=== PATIENT | female | born 1965 | race Caucasian/White ===

== ENCOUNTER → 2018-07-05 14:12 | Outpatient (CLI) | payer OTHER, SELFPAY ==
[2018-07-10 12:57] LABS: HPV Reflexed? NOT INDICATED
== END ==
PROVIDERS: Visit Provider Obstetrics & Gynecology
DX: Z12.4 Encounter for screening for malignant neoplasm of cervix (principal)
CPT/HCPCS: 88175; G0145

== ENCOUNTER → 2019-05-09 13:46 | Outpatient (CLI) | payer OTHER, SELFPAY ==
[2017-02-21 11:34] VITALS: BMI 22.3
[2019-05-09 16:31] LABS: Vitamin D,25 Hydroxy 15.7 ng/mL (29.95-100.01)
[2019-05-09 16:36] LABS: Anion Gap 8 (5-15); BUN 17 mg/dL (7-18); Calcium,Total 9.2 mg/dL (8.5-10.1); Chloride 104 mmol/L (98-107); Cholesterol 278 mg/dL (200); Creatinine, Serum 0.77 mg/dL (0.55-1.02); EST Glomerular Filtration Rate 83 mL/min (>60); Est Glom Filt Rate - Afr Amer 101 mL/min (>60); Glucose 82 mg/dL (74-106); High Density Lipoprotein 69 mg/dL; Potassium 3.4 mmol/L (3.5-5.1); Sodium Level 140 mmol/L (136-145); Triglycerides 78 mg/dL; Very Low Density Lipoprotein 16 mg/dL (5-40)
== END ==
PROVIDERS: Visit Provider Family Medicine
DX: Z00.00 Encounter for general adult medical examination without abnormal findings (principal)
CPT/HCPCS: 36415; 80048; 80061; 82306

== ENCOUNTER → 2019-07-31 | Outpatient (CLI) | payer OTHER, SELFPAY ==
[2019-07-31 10:12] LABS: Cholesterol 152 mg/dL (200); High Density Lipoprotein 70 mg/dL; Triglycerides 78 mg/dL; Very Low Density Lipoprotein 16 mg/dL (5-40)
== END | disposition home or self-care (01) ==
LOC: MFPLAB 08:24
PROVIDERS: PCP Family Medicine; Referring Provider Family Medicine; Visit Provider Family Medicine
DX: E78.5 Hyperlipidemia, unspecified (principal)
CPT/HCPCS: 36415; 80061

== ENCOUNTER → 2020-11-05 09:29 | Outpatient (CLI) | payer OTHER, SELFPAY ==
[2017-02-21 11:34] VITALS: BMI 22.3
[2020-11-05 12:58] LABS: Vitamin D,25 Hydroxy 37.1 ng/mL
[2020-11-05 13:05] LABS: ALB/GLOB Ratio 1.1 RATIO (0.9-2.4); AST(SGOT) 23 U/L (15-37); Alanine Aminotransfer ALT/SGPT 26 U/L (13-56); Albumin, Serum 4.2 g/dL (3.2-5.0); Alkaline Phosphatase 84 U/L (45-117); Anion Gap 6 (5-15); BUN 21 mg/dL (7-18); BUN/Creat Ratio 24.1 RATIO (10-20); Calcium,Total 9.3 mg/dL (8.5-10.1); Chloride 107 mmol/L (98-107); Cholesterol 161 mg/dL (200); Creatinine, Serum 0.87 mg/dL (0.55-1.02); EST Glomerular Filtration Rate 72 mL/min (>60); Est Glom Filt Rate - Afr Amer 87 mL/min (>60); Globulin 3.7 g/dL (2.2-4.2); Glucose 90 mg/dL (74-106); High Density Lipoprotein 72 mg/dL; Potassium 3.5 mmol/L (3.5-5.1); Protein, Total 7.9 g/dL (6.4-8.2); Sodium Level 141 mmol/L (136-145); Triglycerides 66 mg/dL; Very Low Density Lipoprotein 13 mg/dL (5-40)
== END ==
PROVIDERS: PCP Family Medicine; Referring Provider Family Medicine; Visit Provider Family Medicine
DX: E78.5 Hyperlipidemia, unspecified (principal); E55.9 Vitamin D deficiency, unspecified
CPT/HCPCS: 36415; 80053; 80061; 82306

== ENCOUNTER → 2022-02-13 | Outpatient (CLI) | payer OTHER, SELFPAY | END | disposition home or self-care (01) | PROVIDERS: PCP Family Medicine; Visit Provider Family Medicine | DX: N39.0 Urinary tract infection, site not specified (principal) | CPT/HCPCS: 87077; 87086; 87088; 87186 ==

== ENCOUNTER → 2022-02-14 | Outpatient (CLI) | payer OTHER, SELFPAY ==
[2022-02-14 11:06] LABS: AST(SGOT) 21 U/L (15-37); Alanine Aminotransfer ALT/SGPT 27 U/L (13-56); Albumin, Serum 3.9 g/dL (3.2-5.0); Alkaline Phosphatase 77 U/L (45-117); Anion Gap 6 (5-15); BUN 15 mg/dL (7-18); BUN/Creat Ratio 16.3 RATIO (10-20); Calcium,Total 9.4 mg/dL (8.5-10.1); Chloride 108 mmol/L (98-107); Cholesterol 148 mg/dL (200); Creatinine, Serum 0.92 mg/dL (0.55-1.02); EST Glomerular Filtration Rate 68 mL/min (>60); Est Glom Filt Rate - Afr Amer 82 mL/min (>60); Globulin 3.9 g/dL (2.2-4.2); Glucose 97 mg/dL (74-106); High Density Lipoprotein 69 mg/dL; Potassium 3.8 mmol/L (3.5-5.1); Protein, Total 7.8 g/dL (6.4-8.2); Sodium Level 141 mmol/L (136-145); Triglycerides 53 mg/dL; Very Low Density Lipoprotein 11 mg/dL (5-40)
== END | disposition home or self-care (01) ==
LOC: MFPLAB 08:15
PROVIDERS: PCP Family Medicine; Visit Provider Family Medicine
DX: Z00.00 Encounter for general adult medical examination without abnormal findings (principal)
CPT/HCPCS: 36415; 80053; 80061

== ENCOUNTER → 2023-02-09 | Outpatient (CLI) | payer OTHER, SELFPAY ==
[2023-02-09 10:18] LABS: Anion Gap 3 (5-15); BUN 18 mg/dL (7-18); BUN/Creat Ratio 21.4 RATIO (10-20); Calcium,Total 9.3 mg/dL (8.5-10.1); Chloride 110 mmol/L (98-107); Cholesterol 142 mg/dL (200); Creatinine, Serum 0.84 mg/dL (0.55-1.02); EST Glomerular Filtration Rate 75 mL/min (>60); Est Glom Filt Rate - Afr Amer 90 mL/min (>60); Glucose 101 mg/dL (74-106); High Density Lipoprotein 68 mg/dL; Potassium 3.6 mmol/L (3.5-5.1); Sodium Level 142 mmol/L (136-145); Triglycerides 65 mg/dL; Very Low Density Lipoprotein 13 mg/dL (5-40)
== END | disposition home or self-care (01) ==
LOC: MFPLAB 08:35
PROVIDERS: PCP Family Medicine; Visit Provider Family Medicine
DX: Z00.00 Encounter for general adult medical examination without abnormal findings (principal)
CPT/HCPCS: 36415; 80048; 80061; 82306

== ENCOUNTER → 2025-03-11 | Outpatient (CLI) | payer OTHER, SELFPAY ==
--- NOTE | 2025-03-11 10:29 | RAD_ITS ---
PROCEDURE: RAD/Chest PA and Lateral
[2025-03-11 14:19] LABS: Hematocrit 42.4 % (37-47); Hemoglobin 13.4 g/dL (12.0-15.0); Immature Granulocytes Count 0.150 X10^3/uL (0.0-0.0); Mean Corp Hgb Conc 31.6 g/dL (32-36); Mean Corpuscular Volume 96.4 fL (81-99); Mean Platelet Vol. 10.6 fl (6.2-12.0); NRBC Flagged by Analyzer 0 % (0-5); POSITIVE COUNT YES; RBC Distribution Width CV 12.2 % (11.6-14.6); RBC Distribution Width SD 43.3 fl (35.1-43.9); Red Blood Count 4.40 M/mm3 (4.2-5.4); White Blood Count 13.4 K/mm3 (4.4-11.0)
[2025-03-11 14:40] LABS: AST(SGOT) 32 U/L (<=31); Alanine Aminotransfer ALT/SGPT 19 U/L (<=34); Albumin, Serum 3.8 g/dL (3.5-5.0); Alkaline Phosphatase 70 U/L (35-104); Anion Gap 12 (5-15); BUN 19 mg/dL (4-19); BUN/Creat Ratio 22.7 RATIO (10-20); Calcium,Total 9.2 mg/dL (7.6-11.0); Carbon Dioxide 24.5 mmol/L (21.0-32.0); Chloride 102 mmol/L (98-108); Globulin 4.0 g/dL (2.2-4.2); Glucose 173 mg/dL (70-99); Potassium 3.9 mmol/L (3.3-5.1)
[2025-03-11 15:00] LABS: Differential Indicated SCAN CRITERIA MET
== END | disposition home or self-care (01) ==
PROVIDERS: PCP Family Medicine; Referring Provider Family Medicine; Visit Provider Family Medicine
DX: R05.9 Cough, unspecified (principal)
CPT/HCPCS: 36415; 71046; 80053; 85025

== ENCOUNTER → 2025-03-24 | Outpatient (CLI) | payer OTHER, SELFPAY ==
--- NOTE | 2025-03-24 16:48 | CT_ITS ---
PROCEDURE: CT CHEST WITHOUT CONTRAST 03/24/2025 REASON FOR EXAM: EFFUSION TECHNIQUE: Chest CT without contrast. Coronal and Sagittal reconstruction series were provided. One or more dose reduction techniques were used (e.g., Automated exposure control, adjustment of the mA and/or kV according to patient size, use of iterative reconstruction technique RADIATION DOSE SUMMARY: CTDlvol: 7.27 mGy DLP: 268.85 mGycm COMPARISON: Chest x-ray 03/11/2025. FINDINGS: Moderate left pleural effusion with associated subtotal compressive atelectasis and/or consolidation of the left lower lobe. Underlying mass lesion can not be excluded on this exam. The aerated left upper lobe and the right lung are clear. No pneumothorax. Opacified the left lower lobe bronchial airways. Increased number of mildly prominent mediastinal lymph nodes, nonspecific but may be reactive. Evaluation of the may is limited without IV contrast. No enlarged axillary lymph nodes. Normal heart size. No significant pericardial effusion. No coronary artery calcifications. Normal caliber of the central pulmonary arterial vessels and the thoracic aorta. No significant abnormality visualized in the partially included upper abdomen. Simple appearing periportal hepatic cyst in the caudate lobe of the liver. No acute or aggressive osseous abnormality. Minimal degenerative changes of the spine. CT/Chest without Contrast IMPRESSION: Moderate left pleural effusion with subtotal compressive atelectasis and/or con solidation of the left lower lobe. Nonspecific but probable reactive mildly prominent mediastinal lymph nodes. An underlying left lower lobe or left perihilar mass lesion cannot be excluded on this exam. Any follow-up CTs are recommended to be performed with intravenous contrast. Reading Location: [id number]
[2025-03-24 16:57] LABS: Hematocrit 36.6 % (37-47); Hemoglobin 11.9 g/dL (12.0-15.0); Immature Granulocytes Count 0.040 X10^3/uL (0.0-0.0); Mean Corp Hgb Conc 32.5 g/dL (32-36); Mean Corpuscular Volume 93.1 fL (81-99); Mean Platelet Vol. 8.7 fl (6.2-12.0); NRBC Flagged by Analyzer 0 % (0-5); Platelet Count 462 K/mm3 (150-450); RBC Distribution Width CV 11.9 % (11.6-14.6); RBC Distribution Width SD 41.1 fl (35.1-43.9); Red Blood Count 3.93 M/mm3 (4.2-5.4); White Blood Count 10.1 K/mm3 (4.4-11.0)
[2025-03-24 17:22] LABS: Fibrinogen 872 mg/dl (203-444)
[2025-03-24 17:38] LABS: AST(SGOT) 29 U/L (<=31); Alanine Aminotransfer ALT/SGPT 18 U/L (<=34); Albumin, Serum 3.6 g/dL (3.5-5.0); Alkaline Phosphatase 69 U/L (35-104); Anion Gap 13 (5-15); BUN 22 mg/dL (4-19); BUN/Creat Ratio 28.4 RATIO (10-20); CRP 125.00 mg/L (0.0-3.0); Calcium,Total 9.2 mg/dL (7.6-11.0); Carbon Dioxide 24.0 mmol/L (21.0-32.0); Chloride 103 mmol/L (98-108); Globulin 4.2 g/dL (2.2-4.2); Glucose 110 mg/dL (70-99); Potassium 4.0 mmol/L (3.3-5.1)
[2025-03-24 18:35] LABS: D-Dimer Quantitative (DVT/PE) 6.02 FEU/ug/m (0.27-0.49)
== END | disposition home or self-care (01) ==
LOC: CT 16:40
PROVIDERS: PCP Family Medicine; Referring Provider Nurse Practitioner Family; Visit Provider Nurse Practitioner Family
DX: J90 Pleural effusion, not elsewhere classified (principal)
CPT/HCPCS: 36415; 71250; 80053; 85025; 85379; 85384; 86140; 86431

== ENCOUNTER 2025-03-25 17:43 | Observation (INO) | payer OTHER, SELFPAY ==
[2025-03-25] VITALS (9 sets, daily range): BP systolic 115–124; BP diastolic 78–89; PULSE 105–141; RESP 16–26; TEMP 36.4–36.9; O2SAT 95–100; BMI 21.9; BMI 22.3
--- NOTE | 2025-03-25 18:02 | EKG12_ITS ---
Test Reason : Blood Pressure : */* mmHG Vent. Rate : 114 BPM Atrial Rate : 114 BPM P-R Int : 116 ms QRS Dur : 68 ms QT Int : 318 ms P-R-T Axes : 47 39 42 degrees QTcB Int : 438 ms Sinus tachycardia Poor R-wave progression ; consider septal infarct, lead placement, or normal variant Abnormal ECG Confirmed by LISA FORDE, BRYCE ([id number]), editor dictionary ALYSHA BURRIS ([id number]) on 03/30/2025 8:27:34 AM Referred By: Confirmed By: BRYCE GONZALEZ MD
[2025-03-25 18:18] LABS: Hematocrit 36.2 % (37-47); Hemoglobin 11.7 g/dL (12.0-15.0); Immature Granulocytes Count 0.060 X10^3/uL (0.0-0.0); Mean Corp Hgb Conc 32.3 g/dL (32-36); Mean Corpuscular Volume 94.0 fL (81-99); Mean Platelet Vol. 8.9 fl (6.2-12.0); NRBC Flagged by Analyzer 0 % (0-5); Platelet Count 475 K/mm3 (150-450); RBC Distribution Width CV 12.0 % (11.6-14.6); RBC Distribution Width SD 41.7 fl (35.1-43.9); Red Blood Count 3.85 M/mm3 (4.2-5.4); White Blood Count 10.2 K/mm3 (4.4-11.0)
[2025-03-25 18:23] LABS: Mucous, Urine 0 SEEN /hpf (<or=2+)
[2025-03-25 18:35] LABS: Prothrombin Time (Protime)PT. 15.5 SECONDS (11.7-14.9)
[2025-03-25 18:36] LABS: Partial Thromboplast Time 35.0 Seconds (24.1-36.2)
[2025-03-25] MEDS: 0.9% Normal Saline (1000mL) 1,000 ML 999 ML IV (18:37)
[2025-03-25 18:40] LABS: AST(SGOT) 27 U/L (<=31); Alanine Aminotransfer ALT/SGPT 17 U/L (<=34); Albumin, Serum 3.6 g/dL (3.5-5.0); Alkaline Phosphatase 73 U/L (35-104); Anion Gap 16 (5-15); BUN 19 mg/dL (4-19); BUN/Creat Ratio 29.7 RATIO (10-20); Calcium,Total 9.5 mg/dL (7.6-11.0); Carbon Dioxide 22.2 mmol/L (21.0-32.0); Chloride 101 mmol/L (98-108); Estimated Creatinine Clearance 82.46 ml/min (50-250); Globulin 4.3 g/dL (2.2-4.2); Glucose 94 mg/dL (70-99); Potassium 3.7 mmol/L (3.3-5.1)
[2025-03-25 18:56] LABS: Troponin T High Sensitivity < 6 ng/L (<=14)
--- NOTE | 2025-03-25 19:54 | ED.RN ---
called lab to verify that yes 2nd set of blood cultures received.
--- NOTE | 2025-03-25 20:02 | EX.ED.DYSGE1 ---
HPI History of Present Illness Chief Complaint: Shortness of Breath Narrative Narrative: Patient was seen and examined after presenting to ED for admission as she has a new hilar mass. I received a phone call from her PCP who saw her today get a CT angio of her chest concern for PE turns out she has pleural effusion with a hilar mass that is positive with no postobstructive issue and complication patient states that she has not had an appetite for few weeks now has been losing weight because of it. Of note her PCP has been treating her for pneumonia for a couple weeks as well. PFSH PFS Medical History Iron deficiency anemia Chronic anemia Medical History no medical history Home Medications ?Medication ?Instructions ?Recorded ?Last Taken ?Type estradiol 0.025 mg/24 hr weekly 1 patch topical QWEEK 03/25/25 Unknown History transdermal patch progesterone micronized 100 mg 100 mg PO QHS 03/25/25 Unknown History capsule Allergy/AdvReac Type Severity Reaction Status Date / Time No Known Allergies Allergy Verified 03/25/25 17:45 Family History Father CAD (coronary artery disease) Heart disease Hypertension Myocardial infarction Family History no significant family his Surgical History S/P S/P breast lumpectomy Surgical History no surgical history Social History household members: spouse Smoking Status: Never smoker alcohol intake: never substance use type: does not use ROS ROS ED ROS Narrative Pertinent Positives: Shortness of breath decreased appetite weight loss fevers Pertinent Negatives: Chest pain pressure history of DVT or PE vomiting diarrhea The remainder of review of systems negative unless otherwise stated in the HPI above. Systems reviewed including constitutional, psychiatric, cardiovascular, respiratory, integument, HENT, gastrointestinal. EXAM Physical Exam Narrative Exam Narrative: Patient is afebrile but she is tachycardic and tachypneic. She is oxygenating well on room air however her blood pressure is otherwise appropriate her abdomen is soft nontender nondistended she has intact and equal MSPs in her extremities no lower extremity edema or calf tenderness no palpable pulsatile abdominal mass Const Vital Signs: 03/25/25 17:44 03/25/25 17:45 03/25/25 17:47 Temperature 97.5 F L 97.5 F L Temperature Source Oral Oral Pulse Rate 141 H 139 H Respiratory Rate 24 H 24 H Respiratory Effort Respiratory Depth Respiratory Pattern Blood Pressure 122/85 H 124/85 H 122/85 H Blood Pressure Mean 97 98 97 Pulse Ox 99 100 98 Oxygen Delivery Method Room Air Room Air Fraction of Inspired Oxygen (FIO2) 03/25/25 17:54 03/25/25 18:02 03/25/25 18:35 Temperature 98.1 F Temperature Source Oral Pulse Rate 113 H Respiratory Rate 24 H Respiratory Effort Short of Breath Respiratory Depth Normal Respiratory Pattern Normal Blood Pressure 122/78 H Blood Pressure Mean 92 Pulse Ox 98 Oxygen Delivery Method Room Air Room Air Room Air Fraction of Inspired Oxygen (FIO2) 99 03/25/25 19:24 03/25/25 20:29 Temperature 97.5 F L 98.4 F Temperature Source Oral Pulse Rate 112 H 108 H Respiratory Rate 24 H 26 H Respiratory Effort Respiratory Depth Respiratory Pattern Blood Pressure 116/80 124/89 H Blood Pressure Mean 92 100 Pulse Ox 97 98 Oxygen Delivery Method Room Air Fraction of Inspired Oxygen (FIO2) MDM MDM MDM Narrative Medical decision making narrative: Nursing notes, triage notes, available previous documentation, and vital signs were reviewed. Any discrepancies noted were addressed. Differential Diagnoses: Patient does not have a PE considering her CT angio of the chest earlier today seems like this is most likely malignancy causing a pleural effusion requiring biopsy of some sort Interventions: Antibiotics given: Ceftriaxone Fluids Given: 1 L normal saline Labs Reviewed: No leukocytosis leukopenia or significant anemia does have a slight thrombocytosis of 475 no coagulopathy no electrolyte abnormality or renal insufficiency lactic acid is only 1.4 no transaminitis troponin was less than 6. Urine is showing 100 leukocyte esterase with nitrite positive urine there is 150 ketones Imaging Reviewed: Personally reviewed and interpreted by me: CT angio of the chest that was done earlier today in the outpatient setting you can see the moderate to large size pleural effusion on the left but the official read saying the left hilar mass with the postobstructive pneumonitis and atelectasis of the left lower lobe secondary to left pleural effusion EKG: Sinus tachycardia rate of [address] segment elevation. EKG interpretation is noted and agreed to in the EMR. The interpretation of this patient's EKG contributed directly to the care and management of this patient. Previous Documentation Reviewed: None available or applicable at this time. ED Course: Patient presenting with this left hilar mass causing postobstructive process with left large pleural effusion patient was seen by her PCP had a negative PE study but the incidental findings were described PCP would like the patient to be admitted to either have IR try and evaluate for biopsy versus pulmonology for bronc patient remains tachycardic here she is afebrile she has been on a couple weeks worth of antibiotics with no improvement in her symptoms we will plan to admit this patient. Patient was given ceftriaxone for her nitrite positive urine with 100 leukocyte esterase and given the fact that she is tachycardic and tachypneic although this is likely secondary to her pleural effusion we will go ahead and treat as if she has an infection here I spoke with hospitalist Dr. Garner who is agreeable to admission This note was made utilizing voice recognition software. All attempts were made to correct spelling or other errors prior to note completion. However, due to the fast-paced nature of emergency medicine, some errors may still be present. Lab Data Labs: Laboratory Results - last 24 hr 03/25/25 03/25/25 18:00 18:13 WBC 10.2 RBC 3.85 L Hgb 11.7 L Hct 36.2 L MCV 94.0 MCH 30.4 MCHC 32.3 RDW Std Deviation 41.7 RDW Coeff of Prashant 12.0 Plt Count 475 H MPV 8.9 Immature Gran % (Auto) 0.600 Neut % (Auto) 79.8 H Lymph % (Auto) 10.3 L [place] % (Auto) 8.4 Eos % (Auto) 0.6 Baso % (Auto) 0.3 Absolute Neuts (auto) 8.2 H Absolute Lymphs (auto) 1.05 Nucleated RBC % 0 PT 15.5 H INR 1.2 APTT 35.0 Sodium 139 Potassium 3.7 Chloride 101 Carbon Dioxide 22.2 Anion Gap 16 H BUN 19 Creatinine 0.65 L Estim Creat Clear Calc 82.46 Est GFR (MDRD) Non-Af 103 BUN/Creatinine Ratio 29.7 H Glucose 94 Lactic Acid 1.4 Calcium 9.5 Total Bilirubin 0.33 AST 27 ALT 17 Alkaline Phosphatase 73 Troponin T High Sens < 6 Total Protein 7.9 Albumin 3.6 Globulin 4.3 H Albumin/Globulin Ratio 0.8 L Urine Color Yellow Urine Clarity Cloudy Urine pH 6.0 Ur Specific Brandon 1.020 Urine Protein 30 H Urine Glucose (UA) Normal Urine Ketones 150 A* Urine Occult Blood 50 H Urine Nitrite Positive H Urine Bilirubin Negative Urine Urobilinogen Normal Ur Leukocyte Esterase 100 H Discharge Plan Triage Chief Complaint: Shortness of Breath ED Provider: Cherise Lala Dx/Rx/DC Orders Clinical Impression: Hilar mass, Pleural effusion on left, Tachycardia, Recent weight loss, Decrease in appetite, UTI (urinary tract infection) Prescriptions: No Action estradiol 0.025 mg/24 hr patch weekly 1 patch topical QWEEK progesterone micronized 100 mg capsule 100 mg PO QHS Primary Care Provider: Steven Redman Referrals: Steven Redman MD [Primary Care Provider, [facility]] Print Language: French D/C Safety Score for UGIB Assessment [place] Bleeding Score (GBS): Stratifies upper GI bleeding patients who are low-risk and candidates for outpatient management. Hemoglobin, BUN, Recent Vital Signs: Hgb 11.7 g/dL (12.0-15.0) L 03/25/25 18:00 BUN 19 mg/dL (4-19) 03/25/25 18:00 Pulse Rate 108 Blood Pressure 124/89 Score Interpretation: Score of 0: A GBS of 0 is a ?Low Risk? GI bleed, and is highly sensitive (99.6% in a 2007 retrospective study) for predicting which patients did not require any ?medical intervention?: blood transfusion, endoscopy, or surgery. This was confirmed in a [address] [facility] study where patients with a score of 0 were actually discharged and had no GI bleeding mortality at 6 month followup Score above 0: A GBS greater than zero suggests a ?High Risk? GI bleed that is likely to require ?medical intervention?: transfusion, endoscopy, or surgery. A higher GBS also correlated with a higher likelihood of needing intervention Scores >/= 6 are associated with >50% risk of needing intervention D/C Safety Score for LGIB Assessment Assessment Tool: Readmission and adverse event risk in patients with acute lower GI bleeding. Hemoglobin and Recent Vital Signs: Hgb 11.7 g/dL (12.0-15.0) L 03/25/25 18:00 Pulse Rate 108 03/25/25 20:29 Blood Pressure 124/89 03/25/25 20:29 Score Interpretation: Probability Percentage of safe discharge (absence of rebleeding, blood transfusion, therapeutic intervention, 28 day readmission, or ) Score of 8 or below: Consider discharge, with appropriate precautions. Score of 9 or above: Discharge NOT recommended. Consider admission with further workup and resuscitation as necessary.
[2025-03-25 20:11] LABS: Color, Urine Yellow (Yellow); Glucose, Dipstick Normal (Normal); Leukocyte Esterase-Dipstick 100 /ul (Negative); Nitrite-Dipstick Positive (Negative); Occult Blood-Urine 50 /ul (Negative); Protein-Dipstick 30 mg/dl (Negative); Specific Gravity, Urine 1.020 (1.002-1.030); Urine Bilirubin Dipstick Negative (Negative)
[2025-03-25 20:26] LABS: Ketone-Dipstick 150 mg/dl (Negative)
--- NOTE | 2025-03-25 20:27 | ED.RN ---
notified of critical ketones
--- NOTE | 2025-03-25 20:58 | PCM.HP.STD ---
HPI - General General Date of Admission: 03/25/25 Date of Service: 03/25/25 Chief Complaint: Dyspnea, recent hilar mass dx w/ pleural effusion. HPI Narrative The patient is a 59 y/o F w/ PMHx: Chronic normocytic anemia/iron deficiency anemia with history of menorrhagia who presents to the [facility] ED on 03/25/2025 with recent outpatient PCP evaluation secondary to ongoing decreased appetite with associated weight loss over the last several weeks as well as dyspnea with imaging obtained outpatient including 03/25/2025 CTPA with a left hilar mass with postobstructive pneumonitis and atelectasis of the left lower lobe due to a large left pleural effusion with previous to this chest CT 03/24/2025 performed without contrast with a moderate left pleural effusion with subtotal compressive atelectasis and or consolidation of the left lower lobe read as nonspecific but probably reactive mildly prominent mediastinal lymph nodes, underlying left lower lobe or left perihilar mass lesion cannot be excluded at that time with recommended follow-up with IV contrast. Patient now presenting to the ED per primary care recommendation to facilitate a more emergent IR biopsy/thoracentesis versus pulmonary bronch/biopsy. Patient reportedly has also been on 2 weeks of antibiotic therapy with no improvement in symptoms. She has a started approximately 1 month prior and she initially was treated with a Z-Blade and felt some improvement however her symptoms quickly returned with fever, night sweats, decreased appetite as well as dyspnea. She recently notes that she has been afebrile but still continues to have night sweats and dyspnea worse with exertion. She also has notable orthopnea and has to sleep on a specific side to be comfortable as well as a certain elevation. She denies any nausea or vomiting. Patient denies any tobacco use history herself but notes that up into her middle youth she was a secondhand tobacco exposure individual as her parents both smoked. Workup in the ED included T97.5, heart rate initially 141, BP 122/85, respiratory rate 24, 100% on room air with most recent repeat vitals T98.4, heart rate 108, BP 124/89, respiratory rate 26, 98% on room air, CBC with WBC 10.2, hemoglobin 0.7, MCV 94, platelet 475 with left shift, unremarkable coags besides PT 15.5, CMP with anion gap 16, BUN/creatinine 19/0.65, GFR 103, lactic acid 1.4, hepatic profile unremarkable, troponin less than 6, urinalysis with cloudy appearing urine, specific gravity 1.020, protein 30, ketone 150, occult blood 50, positive nitrite, leukocyte esterase 100 with finalization of UA pending including urine RBC/WBC/bacteria thus still uncertain if UTI however given current markers some concern as noted, urine culture pending per ED, blood culture x 2 pending per ED. In the ED patient ministered 1 L normal saline as well as Rocephin 2 g IV x 1. PFSH Medical History Iron deficiency anemia Chronic anemia Medical History no medical history Home Medications ?Medication ?Instructions ?Recorded ?Last Taken ?Type estradiol 0.025 mg/24 hr weekly 1 patch topical QWEEK 03/25/25 Unknown History transdermal patch progesterone micronized 100 mg 100 mg PO QHS 03/25/25 Unknown History capsule Allergy/AdvReac Type Severity Reaction Status Date / Time No Known Allergies Allergy Verified 03/25/25 17:45 Family History Father CAD (coronary artery disease) Heart disease Hypertension Myocardial infarction Mother PAF (paroxysmal atrial fibrillation) Family History no significant family his Surgical History S/P S/P breast lumpectomy Surgical History no surgical history Social History (Updated 03/25/25 @ 21:[address] Darlin Garner MD) household members: spouse Smoking Status: Never smoker second hand exposure: Yes alcohol intake: never substance use type: does not use ROS ROS Narrative Admission Review of Systems: CONSTITUTIONAL: No fever, chills, + weight loss, weakness or fatigue. Previously had fevers when started ~ 1 month prior, since has resolved but ongoing night sweats as noted. HEENT: Eyes: No visual loss, blurred vision, double vision or yellow sclerae. Ears, Nose, Throat: No hearing loss, sneezing, congestion, runny nose or sore throat. SKIN: No rash or itching, lesions, wounds. CARDIOVASCULAR: + Tachycardia/racing heart, orthopnea. No chest pain, chest pressure or chest discomfort, edema, syncopal events. RESPIRATORY: + Shortness of breath, dry cough ONLY with laughing or deep inspiratory effort. No marked sputum, wheezing, hemoptysis. GASTROINTESTINAL: + Anorexia/lack of appetite. No nausea, vomiting or diarrhea, abdominal pain, melena, BRBPR. GENITOURINARY: + Decreased UOP. No dysuria, frequency, urgency or retention. NEUROLOGICAL: No headache, dizziness, syncope, paralysis, ataxia, numbness or tingling in the extremities, focal weakness, change in bowel or bladder control, seizure. MUSCULOSKELETAL: + muscle, back pain, joint pain or stiffness. HEMATOLOGIC: + Chronic anemia. No marked easy history of bleeding or bruising. LYMPHATICS: No enlarged nodes. No history of splenectomy. PSYCHIATRIC: No history of depression or anxiety. ENDOCRINOLOGIC: + Night sweats, cold or heat intolerance. No polyuria or polydipsia. ALLERGIES: No history of asthma, hives, eczema or rhinitis. Vital Signs Vital Signs Vital Signs: 03/25/25 17:44 03/25/25 17:45 03/25/25 17:47 Temperature 97.5 F L 97.5 F L Temperature Source Oral Oral Pulse Rate 141 H 139 H Respiratory Rate 24 H 24 H Respiratory Effort Respiratory Depth Respiratory Pattern Blood Pressure 122/85 H 124/85 H 122/85 H Blood Pressure Mean 97 98 97 Pulse Ox 99 100 98 Oxygen Delivery Method Room Air Room Air Fraction of Inspired Oxygen (FIO2) 03/25/25 17:54 03/25/25 18:02 03/25/25 18:35 Temperature 98.1 F Temperature Source Oral Pulse Rate 113 H Respiratory Rate 24 H Respiratory Effort Short of Breath Respiratory Depth Normal Respiratory Pattern Normal Blood Pressure 122/78 H Blood Pressure Mean 92 Pulse Ox 98 Oxygen Delivery Method Room Air Room Air Room Air Fraction of Inspired Oxygen (FIO2) 99 03/25/25 19:24 03/25/25 20:29 Temperature 97.5 F L 98.4 F Temperature Source Oral Pulse Rate 112 H 108 H Respiratory Rate 24 H 26 H Respiratory Effort Respiratory Depth Respiratory Pattern Blood Pressure 116/80 124/89 H Blood Pressure Mean 92 100 Pulse Ox 97 98 Oxygen Delivery Method Room Air Fraction of Inspired Oxygen (FIO2) Weight Weight: 127 lb 12.8 oz Body Mass Index (BMI) 21.9 Physical Exam Narrative Physical Examination: General: Awake, alert, oriented x 3 and cooperative, seated upright in ED bed, fatigued but no acute distress. Skin: Normal color, normal turgor, no icterus, no cyanosis except occasional stage ecchymoses, abrasion. HEENT: AT/NC, EOMI, PERRLA, MMM, no carotid bruits or JVD noted. Lungs: Diminished, greater bases, left greater than right, mildly increased respiratory rate but no distress, elicited deep inspiratory dry cough however not marked, no marked rhonchi or wheezing, mild crackles left base. Heart: Tachycardic with regular rhythm; no gallop, rub audible. Abdomen: Soft, NTTP, ND, mildly hyperactive BS, no appreciated HSM. Extremities: No cyanosis, clubbing, or edema. Neurological: Patient awake, alert, oriented as noted, cognitive function intact; pupils equally reactive to light and accommodation, cranial nerves grossly normal, moving all 4 extremities, no focal deficits, strength mildly to moderately globally decreased secondary to acute presentation complaints Psychiatric: Affect appears fatigued otherwise normal, no acute evidence of depressive or anxiety feelings. Results Lab / Micro Data 03/25/25 18:00 03/25/25 18:00 Labs: Laboratory Results - last 24 hr 03/25/25 18:00: WBC 10.2, RBC 3.85 L, Hgb 11.7 L, Hct 36.2 L, MCV 94.0, MCH 30.4, MCHC 32.3, RDW Std Deviation 41.7, RDW Coeff of Prashant 12.0, Plt Count 475 H, MPV 8.9, Immature Gran % (Auto) 0.600, Neut % (Auto) 79.8 H, Lymph % (Auto) 10.3 L, [place] % (Auto) 8.4, Eos % (Auto) 0.6, Baso % (Auto) 0.3, Absolute Neuts (auto) 8.2 H, Absolute Lymphs (auto) 1.05, Nucleated RBC % 0, PT 15.5 H, INR 1.2, APTT 35.0, Sodium 139, Potassium 3.7, Chloride 101, Carbon Dioxide 22.2, Anion Gap 16 H, BUN 19, Creatinine 0.65 L, Estim Creat Clear Calc 82.46, Est GFR (MDRD) Non-Af 103, BUN/Creatinine Ratio 29.7 H, Glucose 94, Lactic Acid 1.4, Calcium 9.5, Total Bilirubin 0.33, AST 27, ALT 17, Alkaline Phosphatase 73, Troponin T High Sens < 6, Total Protein 7.9, Albumin 3.6, Globulin 4.3 H, Albumin/Globulin Ratio 0.8 L 03/25/25 18:13: Urine Color Yellow, Urine Clarity Cloudy, Urine pH 6.0, Ur Specific [place] 1.020, Urine Protein 30 H, Urine Glucose (UA) Normal, Urine Ketones 150 A*, Urine Occult Blood 50 H, Urine Nitrite Positive H, Urine Bilirubin Negative, Urine Urobilinogen Normal, Ur Leukocyte Esterase 100 H Assessment & Plan Assessment/Plan (1) Pleural effusion on left: PLAN: Plan The patient is a 59 y/o F w/ PMHx: Chronic normocytic anemia/iron deficiency anemia with history of menorrhagia who presents to the [facility] ED on 03/25/2025 with recent outpatient PCP evaluation secondary to ongoing decreased appetite with associated weight loss over the last several weeks as well as dyspnea with imaging obtained outpatient including 03/25/2025 CTPA with a left hilar mass with postobstructive pneumonitis and atelectasis of the left lower lobe due to a large left pleural effusion with previous to this chest CT 03/24/2025 performed without contrast with a moderate left pleural effusion with subtotal compressive atelectasis and or consolidation of the left lower lobe read as nonspecific but probably reactive mildly prominent mediastinal lymph nodes, underlying left lower lobe or left perihilar mass lesion cannot be excluded at that time with recommended follow-up with IV contrast. Patient now presenting to the ED per primary care recommendation to facilitate a more emergent IR biopsy/thoracentesis. #1. Possible Acute Complicated Urinary Tract Infection: Will admit to PCU given persistent tachycardia likely related with #2, UA upon ED evaluation remarkable but still awaiting finalization as no urine WC/RBC/bacteria noted but at this point some concern for UTI with decreased urinary frequency but no marked urinary symptoms otherwise thus still uncertain if it is a true UTI however in the interim we will continue to treat as if it could be with de-escalation if unremarkable, pending UCx, judiciously administer IVFs, monitor I/Os, continue IV Rocephin w/ transition as able pending sensitivities and speciation. Blood culture x 2 pending per ED #2. Symptomatic dyspnea, tachycardia with notable left hilar mass with postobstructive pneumonitis/atelectasis with a large left pleural effusion of unclear exact etiology with noted regional lymphadenopathy with weight loss, anorexia with adult FTT, concern at least moderate protein calorie malnutrition: Will request thoracentesis of the left pleural effusion with cultures/cytology versus IR evaluation w/ radiology also to consider possibility of biopsy however if this is not possible we will then need to request pulmonary assessment and consider bronchoscopy for biopsy. Will maintain on ATC budesonide, as needed albuterol, encourage head of bed and I-S. Given recent 2 weeks antibiotic course will avoid any further antibiotics for consideration of pneumonia except for antibiotics related with #1, to be cautious however will obtain sputum culture induced if able, urine antigens. Nutrition consulted for recommendations. #3. Chronic Normocytic anemia/iron deficiency anemia: In the past noted remotely to have menorrhagia likely responsible for chronic anemia, admission hemoglobin 11.7, MCV 94, most recently previous to this 03/24 hemoglobin 11.9 however prior to that seems to vacillate but 11 appears likely normal although labs are remote from 2017, will continue to trend CBC. Encourage follow-up as previously arranged. Clarifying if on iron outpatient. #4. DVT prophylaxis: SCDs, defer chemoprophylaxis given planned intervention as noted. Charges/Coding Visit Charges Inpatient E&M: 51808 Init Hosp L3 D/C Safety Score for UGIB Assessment Greenback-Blatchford Bleeding Score (GBS): Stratifies upper GI bleeding patients who are low-risk and candidates for outpatient management. Hemoglobin, BUN, Recent Vital Signs: Hgb 11.7 g/dL (12.0-15.0) L 03/25/25 18:00 BUN 19 mg/dL (4-19) 03/25/25 18:00 Pulse Rate 108 Blood Pressure 124/89 Score Interpretation: Score of 0: A GBS of 0 is a ?Low Risk? GI bleed, and is highly sensitive (99.6% in a 2007 retrospective study) for predicting which patients did not require any ?medical intervention?: blood transfusion, endoscopy, or surgery. This was confirmed in a 2009 Lancet study where patients with a score of 0 were actually discharged and had no GI bleeding mortality at 6 month followup Score above 0: A GBS greater than zero suggests a ?High Risk? GI bleed that is likely to require ?medical intervention?: transfusion, endoscopy, or surgery. A higher GBS also correlated with a higher likelihood of needing intervention Scores >/= 6 are associated with >50% risk of needing intervention D/C Safety Score for LGIB Assessment Assessment Tool: Readmission and adverse event risk in patients with acute lower GI bleeding. Hemoglobin and Recent Vital Signs: Hgb 11.7 g/dL (12.0-15.0) L 03/25/25 18:00 Pulse Rate 108 03/25/25 20:29 Blood Pressure 124/89 03/25/25 20:29 Score Interpretation: Probability Percentage of safe discharge (absence of rebleeding, blood transfusion, therapeutic intervention, 28 day readmission, or ) Score of 8 or below: Consider discharge, with appropriate precautions. Score of 9 or above: Discharge NOT recommended. Consider admission with further workup and resuscitation as necessary.
--- OUTSIDE RECORDS SUMMARY | 2025-03-25 21:32 | XMS RPT_ITS | CCD ---
Author Organization [facility] Inform ion Partnership [facility] Care Team Providers Care Inward Toll Operator Name Role Phone Unavailable Primary Care Provider Steven Claire MD Primary Care Provider [phone] STEVEN GILLETTE Primary Care Unavailable NORMA LERMA Attending NORMA Estrada Attending Unavailable NORMA LERMA Referring Unavailable NORMA LERMA Attending Steven Paniagua Referring Unavailable Steven Gillette Attending Unavailable Steven Gillette Primary Care Unavailable Medications Current Medications Medication Drug Class(es) Dates Sig (Normalized) Sig (Original) cholecalciferol 0.025 mg oral capsule (8 sources) Vitamin D Cholecalciferol, Vitamin D3, (VITAMIN D) 25 mcg (1,000 unit) cap Take 1,000 Units by mouth once daily. Active 168 hr estradiol 0.42166 mg/hr transdermal system (7 sources) Estrogen Start: 11-19-2024 estradiol (CLIMARA) 0.025 mg/24 hr patch Indications: Hot flashes Apply 1 patch as directed one time a week. 12 patch 3 11/19/2024 Active Start: 05-21-2024 End: 11-19-2024 estradiol (CLIMARA) 0.025 mg /24 hr patch Apply 1 Patch as directed one time a week. 12 Patch 3 05/21/2024 11/19/2024 Discontinued guaiFENesin 400 mg oral tablet (1 source) Start: 02-21-2017 take 1 tablet by mouth at bedtime Guaifenesin (Tab Tussin) 400 MG tablet Active 400 MG PO AT BEDTIME February 21, 2017 12:00am mecobalamin (8 sources) mecobalamin (B12 ACTIVE ORAL) Take by mouth once daily. Active mecobalamin (B12 ACTIVE ORAL) Take by mouth once daily. 0 Active multivit,thx,calcium,iron,mi ns (MULTIVITAMIN AND MINERAL ORAL) (8 sources) take 1 tablet by mouth once daily multivit,thx,calcium,iron,mins (MULTIVITAMIN AND MINERAL ORAL) Take 1 tablet by mouth once daily. Active take 1 tablet by lawanda th once daily multivit,thx,calcium,iron,mins (MULTIVIT HURT AND MINERAL ORAL) Take 1 tablet by mouth once daily. 0 Active Multivitamin (Daily Multiple Vitamin) 1 EACH tablet (1 source) Start: 02-21-2017 take 1 tablet by mouth once daily Multivitamin (Daily Multiple Vitamin) 1 EACH tablet Active 1 EACH PO DAILY February 21, 2017 12:00am progesterone 100 mg oral capsule (7 sources) Progesterone Start: 11-19-2024 take 1 capsule by mouth once daily at bedtime progesterone micronized (PROMETRIUM) 100 mg capsule Indications: Hot flashes Take 1 capsule by mouth daily at bedtime. 90 capsule 3 11/19/2024 Active Start: 05-21-2024 End: 11-19-2024 take 1 capsule by mouth once daily at bedtime progesterone micronized (PROMETRIUM) 100 mg capsule Take 1 capsule by mouth daily at bedtime. 90 capsule 3 05/21/2024 11/19/2024 Discontinued rosuvastatin calcium 10 mg oral tablet (8 sources) HMG-CoA Reductase Inhibitor Start: 10-14-2023 End: 11-19-2024 take 1 tablet by mouth once daily rosuvastatin (CRESTOR) 10 mg tablet Take 10 mg by mouth once daily. 10/14/2023 11/19/2024 Discontinued Problems Active Problems Problem Classification Problem Date Documented Date Episodic/Chronic Disorders of lipid metabolism (1 source) Hyperlipidemia; Translations: [Hyperlipidemia, unspecified] 06-20-2024 Chronic Immunizations and screening for infectious disease (4 sources) Patient encounter status; Translations: [Encounter for screening for human papillomavirus (HPV)] 10-25-2023 Episodic Menopausal disorders (5 sources) Genitourinary syndrome of menopause; Translations: [Other specified menopausal and perimenopausal disorders] Onset: 05-22-2024 10-25-2023 Chronic Menopausal disorders (1 source) Postmenopausal state; Translations: [Hormone replacement therapy] 06-20-2024 Episodic Other screening for suspected conditions (not mental disorders or infectious disease) (1 source) Encounter for screening mammogram for malignant neoplasm of breast; Translations: [Encounter for screening mammogram for breast cancer] Onset: 11-19-2024 Episodic Other skin disorders (1 source) Night sweats; Translations: [Generalized hyperhidrosis] 10-25-2023 Episodic Residual codes; unclassified (1 source) Flushing; Translations: [Flushing] 11-19-2024 Episodic Residual codes; unclassified (1 source) Flushing; Translations: [Hot flashes] Onset: 11-19-2024 Episodic Unclassified (1 source) Cough, unspecified; Translations: [Cough, unspecified] Onset: 03-11-2025 Past or Other Problems Problem Classification Problem Date Documented Da te Episodic/Chronic Unclassified (1 source) Patient encounter status 11-19-2024 Results Test Name Value Interpretation Reference Range Facility CBC W/Diff, Automatedon 02-12 PLT EST ADEQUATE Normal ADEQ [facility] Comment on above: Order Comment: Order Date: 03/11/25 Order Info: 0184-1 - CBCD Performed By: #### L [id number], L100.0100 #### [facility] Laboratory [address] [place], [place], [address] Chest PA and Lateralon 03-11 Chest PA and Lateral [facility] Services [address] [place] [address] Chest PA and Lateral MR#: [id number] Acct: [id number] Name: ARELIS ADAN Rep #: [id number] : 1965 F 59 From: Ronald Nolan PCP: Dr. Steven Gillette MD Status: REG CLI Study: Chest PA and Lateral Date of Exam: 03/11/25 Exam# [id number] Ordering Dr: Steven Gillette MD PROCEDURE: CHEST PA AND LATERAL 03/11/2025 REASON FOR EXAM: COUGH, TEMP, WHEEZE TECHNIQUE: Procedure Code: RADCXR Modality: DX Procedure: CHEST PA AND LATERAL COMPARISON: None. RAD/Chest PA and Lateral IMPRESSION: A moderate left pleural fluid collection is seen, with the adjacent left lower lobe airspace disease, with differential diagnosis including pneumonitis and atelectasis. No right pleural effusion is seen. No pneumothorax is noted. No evidence of pulmonary edema. The cardiomediastinal silhouette is within the normal range. Mild thoracic spine degenerative changes are seen. Bilateral acromioclavicular joint degenerative changes are noted, right worse than left. Reading Location: [place] [address] CC: Dr. Steven Gillette MD Chair Car Driver: Signed Normal [facility] Comprehensive Metabolic Prof ilon 03-11-2025 Albumin [Mass/Vol] 3.8 g/dL Normal 3.5-5.0 [facility] Comment on above: Order Comment: Order Date: 03/11/25 Order Info: 0786-1 - CMP Performed By: #### L 500.4050, L100.0100 #### [facility] [address] [place], [address] Albumin/Globulin [Mass ratio] 1.0 {ratio} Normal 0.9-2.4 [facility] Comment on above: Order Comment: Order Date: 03/11/25 Order Info: 0786-1 - CMP Performed By: #### L 500.4050, L100.0100 #### [facility] [address] [place], [address] ALK PHOS 70 U/L Normal 35-104 [facility] Comment on above: Order Comment: Order Date: 03/11/25 Order Info: 0786-1 - CMP Performed By: #### L 500.4050, L100.0100 #### [facility] [address] [place], [address] ALT [Catalytic activity/Vol] 19 U/L Normal <=34 [facility] Comment on above: Order Comment: Order Date: 03/11/25 Order Info: 0786-1 - CMP Performed By: #### L 500.4050, L100.0100 #### [facility] [address] [place], [address] AST [Catalytic activity/Vol] 32 U/L Normal <=31 [facility] Comment on above: Order Comment: Order Date: 03/11/25 Order Info: 0786-1 - CMP Performed By: #### L 500.4050, L100.0100 #### [facility] [address] [place], [address] Bilirubin [Mass/Vol] 0.52 mg/dL Normal 0.00-1.30 [facility] Comment on above: Order Comment: Order Date: 03/11/25 Order Info: 0786-1 - CMP Performed By: #### L 500.4050, L100.0100 #### [facility] [address] [place], [address] BUN/CRE 22.7 RATIO High 10-20 [facility] Comment on above: Order Comment: Order Date: 03/11/25 Order Info: 0786-1 - CMP Performed By: #### L 500.4050, L100.0100 #### [facility] [address] [place], [address] Calcium [Mass/Vol] 9.2 mg/dL Normal 7.6-11.0 [facility] Comment on above: Order Comment: Order Date: 03/11/25 Order Info: 0786-1 - CMP Performed By: #### L 500.4050, L100.0100 #### [facility] [address] [place], [address] Chloride [Moles/Vol] 102 mmol/L Normal 98-108 [facility] Comment on above: Order Comment: Order Date: 03/11/25 Order Info: 0786-1 - CMP Performed By: #### L 500.4050, L100.0100 #### [facility] [address] [place], [address] CO2 [Moles/Vol] 24.5 mmol/L Normal 21.0-32.0 [facility] Comment on above: Order Comment: Order Date: 03/11/25 Order Info: 0786-1 - CMP Performed By: #### L 500.4050, L100.0100 #### [facility] [address] [place], [address] Creatinine [Mass/Vol] 0.85 mg/dL Normal 0.70-1.20 [facility] Comment on above: Order Comment: Order Date: 03/11/25 Order Info: 0786-1 - CMP Performed By: #### L 500.4050, L100.0100 #### [facility] [address] [place], [address] GAP 12 Normal 5-15 [facility] Comment on above: Order Comment: Order Date: 03/11/25 Order Info: 0786-1 - CMP Performed By: #### L 500.4050, L100.0100 #### [facility] [address] [place], [address] GFR/1.73 sq M.predicted among non-blacks MDRD (S/P/Bld) [Vol rate/Area] 80 mL/min/{1.73_m2} Normal >60 [facility] Comment on above: Order Comment: Order Date: 03/11/25 Order Info: 0786-1 - CMP Result Comment: mL/m in/1.73m2 CKD-EPI Creatinine Equation (2020) Performed By: #### L 500.4050, L100.0100 #### [facility] [address] [place], [address] Globulin (S) [Mass/Vol] 4.0 g/dL Normal 2.2-4.2 [facility] Comment on above: Order Comment: Order Date: 03/11/25 Order Info: 0786-1 - CMP Performed By: #### L 500.4050, L100.0100 #### [facility] [address] [place], [address] Glucose [Mass/Vol] 173 mg/dL High 70-99 [facility] Comment on above: Order Comment: Order Date: 03/11/25 Order Info: 0786-1 - CMP Performed By: #### L 500.4050, L100.0100 #### [facility] [address] [place], [address] Potassium [Moles/Vol] 3.9 mmol/L Normal 3.3-5.1 [facility] Comment on above: Order Comment: Order Date: 03/11/25 Order Info: 0786-1 - CMP Performed By: #### L 500.4050, L100.0100 #### [facility] [address] [place], [address] Sodium [Moles/Vol] 139 mmol/L Normal 133-145 [facility] Comment on above: Order Comment: Order Date: 03/11/25 Order Info: 0786-1 - CMP Performed By: #### L 500.4050, L100.0100 #### [facility] [address] [place], [address] T PROT 7.7 g/dL Normal 5.9-8.4 [facility] Comment on above: Order Comment: Order Date: 03/11/25 Order Info: 0786-1 - CMP Performed By: #### L 500.4050, L100.0100 #### [facility] [address] [place], [address] Urea nitrogen [Mass/Vol] 19 mg/dL Normal 4-19 [facility] Comment on above: Order Comment: Order Date: 03/11/25 Order Info: 0786-1 - CMP Performed By: #### L 500.4050, L100.0100 #### [facility] [address] [place], [address] CNOVon 11-19-2024 CNOV Office Visit (OBGYWM ) ARELIS ADAN I ([id number]) 1965 F Date Time Provider Department 11/19/24 8:15 AM NORMA LERMA During your visit today, we recorded the following information about you: Blood pressure Weight Height 124/70 59 kg 1.626 m Norma Lerma, JAVI.MANAGER OF DISTRIBUTION 11/19/2024 8:21 AM Signed File Drawer Finisher offered: Patient declines. Arelis is a 59 year old No obstetric history on file. who presents for an annual gynecologic exam without complaints. Doing well with HRT. Only issue has been the reaction to the adhesive - resolves with hydrocortisone use. Mother in law moving in as she is having back surgery on Sunday. This has caused some increased stress. Postmenopausal: Yes HRT use: Yes, estrogen patch and oral progesterone, 2024 Still get period: No LMP: 09/12/2019 Menopause symptoms: Hot flashes Time with current partner: 32 years Number of lifetime partners: 1 control frequency: Never HPV vaccine: No; Last pap smear: 10/25/2023 normal, HPV negative History of abnormal pap: No, all prior PAP smears have been normal Bothersome pelvic pain: No Last mammogram: N/A History of abnormal mammogram: NA OB History No obstetric history on file. 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 Comments: Sexual Activity: Yes; Male Contraception: No contraception data on record PAST MEDICAL HISTORY Diagnosis Date Mixed hyperlipidemia PVC (premature ventricular contraction) PAST SURGICAL HISTORY Procedure Laterality Date BREAST LUMPECTOMY HX Right DELIVERY ONLY X 2 HYSTEROSCOPY, DIAGNOSTIC (SEPARATE hysteroscopy dANDc FAMILY HISTORY Problem Relation Age of Onset Colon Cancer Mother Hyperlipidemia Father Heart Attack Father No Known Problems Brother No Known Problems Brother other (congestive heart failure) Paternal Grandmother Accidental Paternal Grandfather SOCIAL HISTORY Social History Tobacco Use Smoking status: Never Vaping Use Vaping status: Never Used Substance Use Topics Alcohol use: Not Currently Drug use: Never REVIEW OF SYSTEMS Abdomen: No abdominal pain, nausea, vomiting, diarrhea, or constipation. No bloating, early satiety, indigestion, or increased flatulence. Bladder: No dysuria, gross hematuria, urinary frequency, urinary urgency, or incontinence Breast: No breast lumps, nipple d/c, overlying skin changes, redness or skin retraction Allergies and current medication updated:Yes SENSITIVE EXAM: The sensitive examination was discussed with the Patient or Patient's Authorized Motor Vehicle Operator Road Supervisor. As applicable, any other physician, advance practice provider, medical student, or other health professional student that will be observing or involved in the sensitive examination for educational or training purposes was discussed with the Patient or Authorized Motor Vehicle Operator Road Supervisor. The Patient or Authorized Motor Vehicle Operator Road Supervisor has agreed to proceed with the sensitive examination. (Sensitive examination includes inspection and/or palpation of the breasts, pelvis, prostate and anorectal regions). EXAM: BP 124/70 Ht 5' 4 (1.63m) Wt 130 lb (59.0kg) LMP 09/12/2019 BMI 22.30 kg/(m2). GENERAL: pleasant, female in no apparent distress HEENT: Normocephalic, atraumatic, mucus membranes moist, and no lesions NECK: Supple, full range of motion, no adenopathy, and thyroid normal DERMATOLOGY: Normal, without lesions, non-icteric, and non-hirsute BREAST: soft, non-tender, symmetric, no dominant mass, normal nipple-areolar complex, no lymphadenopathy, and no nipple discharge CHEST: Normal inspiratory effort ABDOMEN: soft, non-tender, and no masses PELVIC: external genitalia normal, normal Bartholin's glands, urethra, Ajo's glands, no vulvar lesions, no cervical lesions, good vaginal support, physiologic discharge present, normal appearing perineal body and perianal region BIMANUAL: uterus normal size, shape and consistency, no adnexal masses, and non-tender RECTOVAGINAL: deferred. NEURO: alert and oriented x3,exam grossly non-focal EXTREMITIES: normal ASSESSMENT/PLAN: 1) Health maintenance: Pap/HPV up to date 2023. Mammogram ordered. Declines. Discussed with her recommendation of yearly mammograms. Opts for self breast exams only. Nutrition, exercise and routine health maintenance exams reviewed. Calcium/Vitamin D supplementation information provided. Colon cancer screening: up to date with screening (Cologuard) TSH/lipids/glucose: followed by PCP 2) Follow up one year or sooner as needed Hot flashes - ICD9: 782.62, ICD10: R23.2 - Understands risks and benefits of HRT - Reviewed lowest dose for shortest amount of time - Doing well with current dosing, symptoms significantly improved - PROGESTERONE MICRONIZED 100 MG CAPSULE (more content not included)... Normal [facility] CNPNon 08-12-2024 CNPN Telephone (OBGYWM) ARELIS ADAN I ([id number]) 1965 F Date Time Provider Department 08/12/24 NORMA LERMA During your visit today, we recorded the following information about you: Tierra Grimaldo RN 08/12/2024 3:21 PM Signed Patient asking if HRT is causing her to wheeze. States it's been happening all day every day for the last 2 weeks. She now has the wheezing when she breathes through her nose. Before it was just when breathing through her mouth. Denies tightness in her chest. Recommended patient contact her PCP for evaluation and that a message would be sent to when she returns to the office. DENNIS Walker Emily, APRN.ZEE 08/13/2024 7:23 AM Signed Not a common side effect with HRT. However, HRT can cause increased risk of blood clots so needs to be evaluated by PCP or go to ER. Norma Lerma APRN.MANAGER OF DISTRIBUTION Tierra Grimaldo RN 08/13/2024 8:35 AM Signed Patient notified. Tierra Grimaldo RN Allergies As of Date: 08/12/2024 (No Known Allergies) Date Reviewed: 06/20/2024 Reviewed by: Norma Lerma APRN.CNP - Fully Assessed Reason for Visit: Patient Question [7987] Prescriptions as of 08/13/2024 - estradiol (CLIMARA) 0.025 mg/24 hr patch Apply 1 Patch as directed one time a week. - progesterone micronized (PROMETRIUM) 100 mg capsule Take 1 capsule by mouth daily at bedtime. - rosuvastatin (CRESTOR) 10 mg tablet Take 10 mg by mouth once daily. - multivit,thx,calcium,ir on,mins (MULTIVITAMIN AND MINERAL ORAL) Take 1 tablet by mouth once daily. - Cholecalciferol, Vitamin D3, (VITAMIN D) 25 mcg (1,000 unit) cap Take 1,000 Units by mouth once daily. - mecobalamin (B12 ACTIVE ORAL) Take by mouth once daily. Problem List As Of Date: 08/12/2024 (None) Encounter Status:Closed by TIERRA GRIMALDO on 08/13/24 [facility] 08-04-2024 LANNY Telephone (OBGYWM) ARELIS ADAN I ([id number]) 1965 F Date Time Provider Department 08/04/24 NORMA LERMA During your visit today, we recorded the following information about you: Marii Nagy LPN 08/04/2024 9:41 AM Signed Patient called stating that she was prescribed the estradiol patch 05/2024 and is having itching in area where adhesive is. Patient tried removing the adhesive and using tape but this is not practical for assisted use. Patient asking if there is another patch available? Or recommendations for people sensitive to the adhesive? Respond to patient by mychart message Norma Lerma APRN.ZEE 08/04/2024 9:53 AM Signed I recommend rotating application site if she isn't already. Unfortunately, this is a common side effect of patch. I recommend appointment to discuss. Norma Lerma APRN.Prisca Lockwood, DENNIS 08/04/2024 9:57 AM Signed Patient notified and voiced understanding. Patient states she will call and schedule and appointment if she feels is needed. Prisca Marin RN Allergies As of Date: 08/04/2024 (No Known Allergies) Date Reviewed: 06/20/2024 Reviewed by: Norma Lerma APRN.ZEE - Fully Assessed Reason for Visit: Patient Update [1234] Prescriptions as of 08/04/2024 - estradiol (CLIMARA) 0.025 mg/24 hr patch Apply 1 Patch as directed one time a week. - progesterone micronized (PROMETRIUM) 100 mg capsule Take 1 capsule by mouth daily at bedtime. - rosuvastatin (CRESTOR) 10 mg tablet Take 10 mg by mouth once daily. - multivit,thx,calcium,ir on,mins (MULTIVITAMIN AND MINERAL ORAL) Take 1 tablet by mouth once daily. - Cholecalciferol, Vitamin D3, (VITAMIN D) 25 mcg (1,000 unit) cap Take 1,000 Units by mouth once daily. - mecobalamin (B12 ACTIVE ORAL) Take by mouth once daily. Problem List As Of Date: 08/04/2024 (None) Encounter Status:Closed by PRISCA MARIN on 08/04/24 [facility] 05-23-2024 LANNY Telephone (OBGYWM) ARELIS ADAN I ([id number]) 1965 F Date Time Provider Department 05/23/24 NORMA LERMA During your visit today, we recorded the following information about you: Norma Lerma APRN.ZEE 05/23/2024 7:13 AM Signed Please notify patient: Elevated fasting glucose and elevated cholesterol. First line therapy is improving diet and exercise. Follow up with me in 4 weeks to assess HRT or sooner as needed. Norma Lerma APRN.Marii Denney LPN 05/23/2024 9:12 AM Signed Left message to call office Speedy Soares RN 05/23/2024 11:52 AM Signed Patient notified. F/u appointment scheduled. Speedy Soares RN Allergies As of Date: 05/23/2024 (No Known Allergies) Date Reviewed: 05/21/2024 Reviewed by: Norma Lerma APRN.MANAGER OF DISTRIBUTION - Fully Assessed Reason for Visit: Results [95] Prescriptions as of 05/23/2024 - estradiol (CLIMARA) 0.025 mg/24 hr patch Apply 1 Patch as directed one time a week. - progesterone micronized (PROMETRIUM) 100 mg capsule Take 1 capsule by mouth daily at bedtime. - rosuvastatin (CRESTOR) 10 mg tablet Take 10 mg by mouth once daily. - multivit,thx,calcium,ir on,mins (MULTIVITAMIN AND MINERAL ORAL) Take 1 tablet by mouth once daily. - Cholecalciferol, Vitamin D3, (VITAMIN D) 25 mcg (1,000 unit) cap Take 1,000 Units by mouth once daily. - mecobalamin (B12 ACTIVE ORAL) Take by mouth once daily. Problem List As Of Date: 05/23/2024 (None) Encounter Status:Closed by SPEEDY SOARES on 05/23/24 Normal [facility] 25(OH)D3 SerPl-mCncon 2024 25-hydroxyvitamin D3 [Mass/Vol] 58.3 ng/mL Normal 31.0-80.0 [facility] Comment on above: Order Comment: Speci men Type: BLOOD SPECIMEN Ordering Facility: [facility] Address: [address] [place] [address] Result Comment: Clas sification of 25 [place] Vitamin D status: Deficiency/Insufficiency: < or = 30 ng/ml. Sufficiency/Optimal Levels: 31-80 ng/mL Toxicity: > 100 ng/mL. Test performed by chemiluminescent immunoassay. Performed By: #### 1 989-3 #### [facility] CLIA [id number] [address] [place], [place] [address] [place] [address] [place] CBC panel Auto (Bld)on 05-22 Erythrocyte distribution width (RBC) [Ratio] 11.9 % Normal 11.5-15.0 [facility] Comment on above: Order Comment: Speci men Type: BLOOD SPECIMEN Ordering Facility: [facility] Address: [address] [place] [address] Performed By: #### 5 8410-2 #### [facility] CLIA [id number] [address] [place] [address] [place] Hematocrit (Bld) [Volume fraction] 41.4 % Normal 36.0-46.0 [facility] Comment on above: Order Comment: Speci men Type: BLOOD SPECIMEN Ordering Facility: [facility] Address: [address] [place], [place] [address] Performed By: #### 5 8410-2 #### [facility] CLIA [id number] [address] [place] [address] [place] Hemoglobin (Bld) [Mass/Vol] 13.6 g/dL Normal 11.5-15.5 [facility] Comment on above: Order Comment: Speci men Type: BLOOD SPECIMEN Ordering Facility: [facility] Address: [address] [place] [address] Performed By: #### 5 8410-2 #### [facility] CLIA [id number] [address] [place] [address] [place] MCH (RBC) [Entitic mass] 31.0 pg Normal 26.0-34.0 [facility] Comment on above: Order Comment: Speci men Type: BLOOD SPECIMEN Ordering Facility: [facility] Address: [address] [place] [address] Performed By: #### 5 8410-2 #### [facility] CLIA [id number] [address] [place] [address] [place] MCHC (RBC) [Mass/Vol] 32.9 g/dL Normal 30.5-36.0 [facility] Comment on above: Order Comment: Speci men Type: BLOOD SPECIMEN Ordering Facility: [facility] Address: [address] [place] [address] Performed By: #### 5 8410-2 #### [facility] CLIA [id number] [address] [place] [address] [place] MCV (RBC) [Entitic vol] 94.3 fL Normal 80.0-100.0 [facility] Comment on above: Order Comment: Speci men Type: BLOOD SPECIMEN Ordering Facility: [facility] Address: [address] [place] [address] Performed By: #### 5 8410-2 #### [facility] CLIA [id number] [address] [place] [address] [place] Nucleated RBC (Bld) [#/Vol] 10*3/uL Normal <0.01 [facility] Comment on above: Order Comment: Speci men Type: BLOOD SPECIMEN Ordering Facility: [facility] Address: [address] [place] [address] Performed By: #### 5 8410-2 #### [facility] CLIA [id number] [address] [place] [address] [place] Platelet mean volume (Bld) [Entitic vol] 9.6 fL Normal 9.0-12.7 [facility] Comment on above: Order Comment: Speci men Type: BLOOD SPECIMEN Ordering Facility: [facility] Address: [address] [place] [address] Performed By: #### 5 8410-2 #### [facility] CLIA [id number] [address] [place] [address] [place] Platelets (Bld) [#/Vol] 206 10*3/uL Normal 150-400 [facility] Comment on above: Order Comment: Speci men Type: BLOOD SPECIMEN Ordering Facility: [facility] Address: [address] [place] [address] Performed By: #### 5 8410-2 #### [facility] CLIA [id number] [address] [place] [address] [place] RBC (Bld) [#/Vol] 4.39 10*6/uL Normal 3.90-5.20 [facility] Comment on above: Order Comment: Speci men Type: BLOOD SPECIMEN Ordering Facility: [facility] Address: [address] [place] [address] Performed By: #### 5 8410-2 #### [facility] CLIA [id number] [address] [place] [address] [place] [facility] WBC (Bld) [#/Vol] 6.59 10*3/uL Normal 3.70-11.00 [facility] Comment on above: Order Comment: Speci men Type: BLOOD SPECIMEN Ordering Facility: [facility] Address: [address] [place] [address] Performed By: #### 5 8410-2 #### [facility] CLIA [id number] [address] [place] [address] [place] Comprehensive metabolic 2000 panelon 05-22-2024 Albumin [Mass/Vol] 4.4 g/dL Normal 3.9-4.9 [facility] Comment on above: Order Comment: Speci men Type: BLOOD SPECIMEN Ordering Facility: [facility] Address: [address] [place] [address] Performed By: #### 5 5454-3 #### [facility] CLIA [id number] [address] [place] [address] [place] ALP [Catalytic activity/Vol] 79 U/L Normal 34-123 [facility] Comment on above: Order Comment: Speci men Type: BLOOD SPECIMEN Ordering Facility: [facility] Address: [address] [place] [address] Performed By: #### 5 5454-3 #### [facility] CLIA [id number] [address] [place] [address] [place] ALT [Catalytic activity/Vol] 15 U/L Normal 7-38 [facility] Comment on above: Order Comment: Speci men Type: BLOOD SPECIMEN Ordering Facility: [facility] Address: [address] [place] [address] Performed By: #### 5 5454-3 #### [facility] CLIA [id number] [address] [place] [address] [place] Anion gap [Moles/Vol] 9 mmol/L Normal 8-15 [facility] Comment on above: Order Comment: Speci men Type: BLOOD SPECIMEN Ordering Facility: [facility] Address: [address] [place] [address] Performed By: #### 5 5454-3 #### [facility] CLIA [id number] [address] [place] [address] [place] AST [Catalytic activity/Vol] 22 U/L Normal 13-35 [facility] Comment on above: Order Comment: Speci men Type: BLOOD SPECIMEN Ordering Facility: [facility] Address: [address] [place] [address] Performed By: #### 5 5454-3 #### [facility] CLIA [id number] [address] [place] [address] [place] Bilirubin [Mass/Vol] 0.4 mg/dL Normal 0.2-1.3 [facility] Comment on above: Order Comment: Speci men Type: BLOOD SPECIMEN Ordering Facility: [facility] Address: [address] [place] [address] Performed By: #### 5 5454-3 #### [facility] CLIA [id number] [address] [place] [address] [place] Calcium [Mass/Vol] 9.9 mg/dL Normal 8.5-10.2 [facility] Comment on above: Order Comment: Speci men Type: BLOOD SPECIMEN Ordering Facility: [facility] Address: [address] [place] [address] Performed By: #### 5 5454-3 #### [facility] CLIA [id number] [address] [place] [address] [place] Chloride [Moles/Vol] 104 mmol/L Normal 98-107 [facility] Comment on above: Order Comment: Speci men Type: BLOOD SPECIMEN Ordering Facility: [facility] Address: [address] [place] [address] Performed By: #### 5 5454-3 #### [facility] CLIA [id number] [address] [place] [address] [place] CO2 [Moles/Vol] 26 mmol/L Normal 22-30 [facility] Comment on above: Order Comment: Speci men Type: BLOOD SPECIMEN Ordering Facility: [facility] Address: [address] [place] [address] Performed By: #### 5 5454-3 #### [facility] CLIA [id number] [address] [place] [address] [place] Creatinine [Mass/Vol] 0.73 mg/dL Normal 0.58-0.96 [facility] Comment on above: Order Comment: Speci men Type: BLOOD SPECIMEN Ordering Facility: [facility] Address: [address] [place] [address] Performed By: #### 5 5454-3 #### [facility] CLIA [id number] [address] [place] [address] [place] Creatinine and Glomerular filtration rate.predicted panel (S/P/Bld) 96 mL/min/1.73m??? Normal >=60 [facility] Comment on above: Order Comment: Speci men Type: BLOOD SPECIMEN Ordering Facility: [facility] Address: [address] [place] [address] Result Comment: Ashlee mated Glomerular Filtration Rate (eGFR) is calculated using the 2020 CKD-EPI creatinine equation. This equation utilizes serum creatinine, sex, and age as parameters. The creatinine assay has traceable calibration to isotope dilution-mass spectrometry. Refer to KDIGO guidelines for clinical interpretation. In patients with unstable renal function, e.g. those with acute kidney injury, the eGFR may not accurately reflect actual GFR. Performed By: #### 5 5454-3 #### [facility] CLIA [id number] [address] [place] [address] [place] Glucose [Mass/Vol] 109 mg/dL High 74-99 [facility] Comment on above: Order Comment: Speci men Type: BLOOD SPECIMEN Ordering Facility: [facility] Address: [address] [place] [address] Result Comment: The [place] Diabetes Association (ADA) provides guidance for cutoff values for fasting glucose and random glucose. The ADA defines fasting as no caloric intake for at least 8 hours. Fasting plasma glucose results between 100 to 125 mg/dL indicate increased risk for diabetes (prediabetes). Fasting plasma glucose results greater than or equal to 126 mg/dL meet the criteria for diagnosis of diabetes. In the absence of unequivocal hyperglycemia, results should be confirmed by repeat testing. In a patient with classic symptoms of hyperglycemia or hyperglycemic crisis, random plasma glucose results greater than or equal to 200 mg/dL meet the criteria for diagnosis of diabetes. Reference: Standards of Medical Care in Diabetes 2016, [place] Diabetes Association. Diabetes Care. 2016.39(Suppl 1). Performed By: #### 5 5454-3 #### [facility] CLIA [id number] [address] [place] [address] [place] Potassium [Moles/Vol] 3.8 mmol/L Normal 3.7-5.1 [facility] Comment on above: Order Comment: Speci men Type: BLOOD SPECIMEN Ordering Facility: [facility] Address: [address] [place] [address] Performed By: #### 5 5454-3 #### [facility] CLIA [id number] [address] [place] [address] [place] Protein [Mass/Vol] 7.6 g/dL Normal 6.3-8.0 [facility] Comment on above: Order Comment: Aurelianoi men Type: BLOOD SPECIMEN Ordering Facility: [facility] Address: [address] [place] [address] Performed By: #### 5 5454-3 #### [facility] CLIA [id number] [address] [place] [address] [place] Sodium [Moles/Vol] 139 mmol/L Normal 136-144 [facility] Comment on above: Order Comment: Speci men Type: BLOOD SPECIMEN Ordering Facility: [facility] Address: [address] [place] [address] Performed By: #### 5 5454-3 #### [facility] CLIA [id number] [address] [place] [address] [place] Urea nitrogen [Mass/Vol] 23 mg/dL High 7-21 [facility] Comment on above: Order Comment: Speci men Type: BLOOD SPECIMEN Ordering Facility: [facility] Address: [address] [place] [address] Performed By: #### 5 5454-3 #### [facility] CLIA [id number] [address] [place] [address] [place] HbA1c (Bld)on 05-22-2024 Average glucose Estimated from glycated hemoglobin (Bld) [Mass/Vol] 105 mg/dL Normal [facility] Comment on above: Order Comment: Speci men Type: BLOOD SPECIMEN Ordering Facility: [facility] Address: [address] [place] [address] Result Comment: eAG: (Estimated average glucose) is a calculated value from HgbA1c and is food service representative of the average blood glucose level in the last 2-3 month period. Performed By: #### 5 5454-3 #### [facility] CLIA [id number] [address] [place] [address] [place] HbA1c (Bld) [Mass fraction] 5.3 % Normal 4.3-5.6 [facility] Comment on above: Order Comment: Speci men Type: BLOOD SPECIMEN Ordering Facility: [facility] Address: [address] [place] [address] Result Comment: [place] Diabetes Association guidelines indicate that patients with HgbA1c in the range 5.7-6.4% are at increased risk for development of diabetes, and intervention by lifestyle modification may be beneficial. HgbA1c greater or equal to 6.5% is considered diagnostic of diabetes. Performed By: #### 5 5454-3 #### [facility] CLIA [id number] [address] [place] [address] [place] Lipid 1996 panelon 5 Cholesterol [Mass/Vol] 257 mg/dL High <200 [facility] Comment on above: Order Comment: Holly tompkins Type: BLOOD SPECIMEN Ordering Facility: [facility] Address: [address] [place] [address] Result Comment: <200 mg/dL, Desirable 200-239 mg/dL, Borderline high >239 mg/dL, High Performed By: #### 5 5454-3 #### [facility] CLIA [id number] [address] [place] [address] [place] Cholesterol in HDL [Mass/Vol] 61 mg/dL Normal >39 [facility] Comment on above: Order Comment: Holly tompkins Type: BLOOD SPECIMEN Ordering Facility: [facility] Address: [address] [place] [address] Result Comment: 40-5 9 mg/dL, Acceptable >59 mg/dL, High: Negative risk factor for coronary heart disease <40 mg/dL, Low: Positive risk factor for coronary heart disease Performed By: #### 5 5454-3 #### [facility] CLIA [id number] [address] [place] [address] [place] Cholesterol in LDL [Mass/Vol] 176 mg/dL High <100 [facility] Comment on above: Order Comment: Holly tompkins Type: BLOOD SPECIMEN Ordering Facility: [facility] Address: [address] [place] [address] Result Comment: <100 mg/dL, Optimal 100-129 mg/dL, Near optimal/above optimal 130-159 mg/dL, Borderline high 160-189 mg/dL, High >189 mg/dL, Very high Secondary prevention optimal LDL Cholesterol levels are recommended to be < 70 mg/dL Performed By: #### 5 5454-3 #### [facility] CLIA [id number] [address] [place] [address] [place] Cholesterol in LDL/Cholesterol in HDL [Mass ratio] 2.89 {ratio} High <2.54 [facility] Comment on above: Order Comment: Holly tompkins Type: BLOOD SPECIMEN Ordering Facility: [facility] Address: [address] [place] [address] Result Comment: Ajay aguirre: 1. National Cholesterol Education Program ATP III Guideline At-A-Glance Quick Desk Reference: National Heart, Lung, and Blood [place]. National Institutes of Health. 2001: NIH Publication No. 01-3305. 2. An International Atherosclerosis Society position paper: global recommendations for the management of dyslipidemia: executive summary, Atherosclerosis. 2014: 232(2):410-413. Performed By: #### 5 5454-3 #### [facility] CLIA [id number] [address] [place] [address] [place] Cholesterol in VLDL [Mass/Vol] 20 mg/dL Normal <30 [facility] Comment on above: Order Comment: Holly tompkins Type: BLOOD SPECIMEN Ordering Facility: [facility] Address: [address] [place] [address] Performed By: #### 5 5454-3 #### [facility] CLIA [id number] [address] [place] [address] [place] Cholesterol non HDL [Mass/Vol] 196 mg/dL High <130 [facility] Comment on above: Order Comment: Holly tompkins Type: BLOOD SPECIMEN Ordering Facility: [facility] Address: [address] [place] [address] Result Comment: <130 mg/dL, Optimal 130-159 mg/dL, Near optimal/above optimal 160-189 mg/dL, Borderline high 190-219 mg/dL, High >219 mg/dL, Very high Secondary prevention optimal non HDL Cholesterol levels are recommended to be <100 mg/dL Performed By: #### 5 5454-3 #### [facility] CLIA [id number] [address] [place] [address] [place] Cholesterol.total/C holesterol in HDL [Mass ratio] 4.21 {ratio} Normal <5.10 [facility] Comment on above: Order Comment: Speci men Type: BLOOD SPECIMEN Ordering Facility: [facility] Address: [address] [place] [address] Performed By: #### 5 5454-3 #### [facility] CLIA [id number] [address] [place] [address] [place] FASTING TIME 12 hrs Normal [facility] Comment on above: Order Comment: Speci men Type: BLOOD SPECIMEN Ordering Facility: [facility] Address: [address] [place] [address] Performed By: #### 5 5454-3 #### [facility] CLIA [id number] [address] [place] [address] [place] Triglyceride [Mass/Vol] 98 mg/dL Normal <150 [facility] Comment on above: Order Comment: Speci men Type: BLOOD SPECIMEN Ordering Facility: [facility] Address: [address] [place] [address] Result Comment: <150 mg/dL, Normal 150-199 mg/dL, Borderline high 200-499 mg/dL, High >499 mg/dL, Very high Performed By: #### 5 5454-3 #### [facility] CLIA [id number] [address] [place] [address] [place] CNOVon 05-21-2024 CNOV Office Visit (OBGYWM ) ARELIS ADAN I ([id number]) 1965 F Date Time Provider Department 05/21/24 9:15 AM NORMA LERMA OBDEEPAKWEmili During your visit today, we recorded the following information about you: Blood pressure Weight 120/74 62 kg Norma Lerma APRN.MANAGER OF DISTRIBUTION 05/21/2024 9:31 AM Signed Arelis Adan is a 59 year old female who presents for problem visit to discuss HRT. HPI: Arelis presents to discuss HRT. She is having night sweats, hot flashes, irritability, intrusive thoughts, and brain fog. These symptoms are intermittent, but affecting her quality of life. The hot flashes and night sweats are daily. Intrusive thoughts revolve more around the fear of something bad happening or hyper focusing on tasks. Denies thoughts of self harm. Menopause in early 50s, less than 5 years ago. History of hyperlipidemia. Has been on HRT via patch in the past. OB History No obstetric history on file. 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 Comments: Sexual Activity: Yes; Male Contraception: No contraception data on record PAST MEDICAL HISTORY Diagnosis Date Mixed hyperlipidemia PVC (premature ventricular contraction) PAST SURGICAL HISTORY Procedure Laterality Date BREAST LUMPECTOMY HX Right DELIVERY ONLY X 2 HYSTEROSCOPY, DIAGNOSTIC (SEPARATE hysteroscopy dANDc FAMILY HISTORY Problem Relation Age of Onset Colon Cancer Mother Hyperlipidemia Father Heart Attack Father No Known Problems Brother No Known Problems Brother other (congestive heart failure) Paternal Grandmother Accidental Paternal Grandfather Social History Tobacco Use Smoking status: Never Vaping Use Vaping status: Never Used Substance Use Topics Alcohol use: Not Currently Drug use: Never Current Outpatient Medications Medication Sig rosuvastatin (CRESTOR) 10 mg tablet Take 10 mg by mouth once daily. multivit,thx,calcium,ir on,mins (MULTIVITAMIN AND MINERAL ORAL) Take 1 tablet by mouth once daily. Cholecalciferol, Vitamin D3, (VITAMIN D) 25 mcg (1,000 unit) cap Take 1,000 Units by mouth once daily. mecobalamin (B12 ACTIVE ORAL) Take by mouth once daily. No current facility-administered medications for this visit. Allergies As of Date: 05/21/2024 (No Known Allergies) Fully Assessed 10/25/2023 REVIEW OF SYSTEMS Expanded ROS: GENERAL: + hot flashes, night sweats, brain fog Allergies and current medication updated:Yes SENSITIVE EXAM: Sensitive exam not performed. EXAM: BP 120/74 Wt 136 lb 9.6 oz (62.0kg) LMP 09/12/2019 GENERAL: pleasant, female in no apparent distress HEENT: Normocephalic, atraumatic, mucus membranes moist, and no lesions CHEST: Normal inspiratory effort NEURO: alert and oriented x3,exam grossly non-focal EXTREMITIES: normal ASSESSMENT AND PLAN: 1. Menopausal symptoms - ICD9: 627.2, ICD10: N95.1 - Would like to start HRT - Reviewed risks and benefits. Reviewed increased risks of blood clots, heart attack, stroke and possible breast cancer. Recommend patch again due to hyperlipidemia. Reviewed how to use. Rx for progesterone sent. Reviewed importance of taking nightly to avoid risk of uterine hyperplasia. - Reviewed recommendation of most effective lowest dose for shortest amount of time - COMPREHENSIVE METABOLIC PANEL - LIPID PANEL BASIC - COMPLETE BLOOD COUNT - VITAMIN D 25 HYDROXY - HEMOGLOBIN A1C RTO in 4 weeks or sooner as needed. Norma Lerma APRN.CNP Medical Decision Making: Problems: Low: Stable chronic illness Data: Unique test(s) ordered: 3+ Risk: Low: Low risk from testing/treatment Moderate: Drug management Medical Decision Making Level: 4 - Moderate Norma Lerma APRN.CNP 05/21/2024 9:21 AM Signed This is from the [employer] website: Placing the patch on your skin Apply the sticky side of the patch to either the upper buttocks or lower abdomen (near waistline) Avoid touching the sticky side of the patch with your fingers Note: Place directly above waistline, since clothing and belts may cause the patch to be rubbed off Do not apply patch to your breasts Only apply patch to skin that is clean, dry, and free of any powder, oil, or lotion You should not apply the patch to injured, burned, or irritated skin, or areas with skin conditions (such as birthmarks, tattoos, or skin that is very hairy) Press the patch firmly onto your skin Press the patch firmly with your fingers for at least 10 seconds Rub the edges of the patch to make sure that it will stick to your skin Note: Contact with water while you are swimming, using a sauna, bathing, or showering may cause the patch to fall off If your patch falls off reapply it. If you cannot reapply the patch, apply a new patch to another area and continue to follow your original appl (more content not included)... [facility] ARELIS ADAN I ([id number]) 1965 F Date Time Provider Department 05/12/24 NORMA LERMA During your visit today, we recorded the following information about you: Prisca Marin RN 05/12/2024 9:30 AM Signed Patient calling asking if she can be prescribed HRT. Patient was last seen in the office on 10/25/23 for menopausal symptoms and then started Bonafide at that time. Patient states she has been taking Bonafide for 6 months and has not had any improvement in her symptoms. Patient complaining of Hot flashes, night sweats and brain fog. Patient states she did use the patch in the past with success. Please address. DENNIS Hu Emily, APRN.ZEE 05/12/2024 9:32 AM Signed Needs appointment to discuss this Norma Lerma APRN.Carolina Tapia RN 05/12/2024 10:15 AM Signed Left message for patient to call office. DENNIS Lopez Lindsey, RN 05/12/2024 10:19 AM Signed Patient notified and voiced understanding, appointment scheduled. Prisca Marin RN Allergies As of Date: 05/12/2024 (No Known Allergies) Date Reviewed: 10/25/2023 Reviewed by: Norma Lerma APRN.ZEE - Fully Assessed Reason for Visit: hot flashes [Other] Prescriptions as of 05/12/2024 - rosuvastatin (CRESTOR) 10 mg tablet Take 10 mg by mouth once daily. - multivit,thx,calcium,ir on,mins (MULTIVITAMIN AND MINERAL ORAL) Take 1 tablet by mouth once daily. - Cholecalciferol, Vitamin D3, (VITAMIN D) 25 mcg (1,000 unit) cap Take 1,000 Units by mouth once daily. - mecobalamin (B12 ACTIVE ORAL) Take by mouth once daily. Problem List As Of Date: 05/12/2024 (None) Encounter Status:Closed by PRISCA MARIN on 05/12/24 Normal [facility] Basophil percentageon 2021 Bilirubin [Mass/Vol] 0.40 mg/dL 0.20-1.00 [facility] Work Phone: Comment on above: For patients on eltr ombopag therapy, use of Dimension [place] TBIL is not recommended. Chloride [Moles/Vol] 108 mmol/L 98-107 [facility] Work Phone: Cholesterol [Mass/Vol] 148 mg/dL <200 [facility] Work Phone: Comment on above: <200 mg/dL Desirable 200-240 mg/dL Borderline >240 mg/dL High Risk Glucose [Mass/Vol] 97 mg/dL 74-106 [facility] Work Phone: Potassium [Moles/Vol] 3.8 mmol/L 3.5-5.1 [facility] Work Phone: Protein [Mass/Vol] 7.8 g/dL 6.4-8.2 [facility] Work Phone: Sodium [Moles/Vol] 141 mmol/L 136-145 [facility] Work Phone: Triglyceride [Mass/Vol] 53 mg/dL <199 [facility] Work Phone: Comment on above: The drugs N-Acetylcy steine and Metamizole may falsely depress this assay.Serum Triglycerides Reference Interval Normal <150 mg/dL Borderline high 150 - 199 mg/dL High 200 - 499 mg/dL Very High > or = 500 mg/dL Laboratory - Chemistry and C hemistry - challengeon 02-14-2022 ALP [Catalytic activity/Vol] 77 U/L 45-117 [facility] Work Phone: ALT [Catalytic activity/Vol] 27 U/L 13-56 [facility] Work Phone: CO2 [Moles/Vol] 27.0 mmol/L 21.0-32.0 [facility] Work Phone: Globulin (S) [Mass/Vol] 3.9 g/dL 2.2-4.2 [facility] Work Phone: Urea nitrogen/Creatinine [Mass ratio] 16.3 mg/mg 10-20 [facility] Work Phone: No Panel Informationon 02-14 Estimated GFR (MDRD) Amer 82 mL/min >60 [facility] Work Phone: Comment on above: GFR Calc Estimated GFR (MDRD) Non-Af Amer 68 mL/min >60 [facility] Work Phone: Comment on above: Non- GFR Calc Serum or plasma albumin chepe urement (mass/volume)on 02-14-2022 Albumin [Mass/Vol] 3.9 g/dL 3.2-5.0 [facility] Work Phone: Serum or plasma albumin/glob ulin mass ratioon 02-14-2022 Albumin/Globulin [Mass ratio] 1.0 {ratio} 0.9-2.4 [facility] Work Phone: Serum or plasma calcium chepe urement (mass/volume)on 02-14-2022 Calcium [Mass/Vol] 9.4 mg/dL 8.5-10.1 [facility] Work Phone: Serum or plasma cholesterol in HDL measurement (mass/volume)on 02-14-2022 Cholesterol in HDL [Mass/Vol] 69 mg/dL >40 [facility] Work Phone: Comment on above: The drugs N-Acetylcy steine and Metamizole may falsely depress this assay. Reference Range HDL <40 mg/dL Low HDL Cholesterol HDL >or= 60 mg/dL High HDL Cholesterol Serum or plasma cholesterol in VLDL measurement (mass/volume)on 02-14-2022 Cholesterol in VLDL [Mass/Vol] 11 mg/dL 5-40 [facility] Work Phone: Serum or plasma creatinine m easurement (mass/volume)on 02-14-2022 Creatinine [Mass/Vol] 0.92 mg/dL 0.55-1.02 [facility] Work Phone: Comment on above: The validity of the calculated GFR & GFRAA in patients over 70 years has not been determined. Clinical correlation is essential. Serum or plasma low density lipoprotein (LDL) cholesterol measurement (mass/volume)on 02-14-2022 Cholesterol in LDL [Mass/Vol] 68 mg/dL 0-130 [facility] Work Phone: Serum or plasma urea nitroge n measurement (mass/volume)on 02-14-2022 Urea nitrogen [Mass/Vol] 15 mg/dL 7-18 [facility] Work Phone: Thin prep Papanicolaou smear with manual screeningon 02-14-2022 Thin prep Papanicolaou smear with manual screening 21 U/L 15-37 [facility] Work Phone: Thin prep Papanicolaou smear with manual screening 6 5-15 [facility] Work Phone: Culture, urine Bacteria identified Cx Nom (U) Staphylococcus epidermidis [facility] Work Phone: Vital Signs Date Time Vital Sign Value Performing Clinician An latham 11-19-2024 08:06-0400 Body height 162.6 cm Norma Lerma APRN.MANAGER OF DISTRIBUTION Work Phone: [facility] 11-19-2024 08:06-0400 Body mass index (BMI) [Ratio] 22.31 kg/m2 Norma Lerma APRN.MANAGER OF DISTRIBUTION Work Phone: [facility] 11-19-2024 08:06-0400 Body weight 58.97 kg Norma Lerma APRN.CNP Work Phone: [facility] 11-19-2024 08:06-0400 Diastolic blood pressure 70 mm[Hg] Norma Lerma APRN.MANAGER OF DISTRIBUTION Work Phone: [facility] 11-19-2024 08:06-0400 Systolic blood pressure 124 mm[Hg] Norma Haury GLOBAL VP CREATIVE + CONTENT MARKETING.MANAGER OF DISTRIBUTION Work Phone: [facility] 05-21-2024 09:07-0500 Body mass index (BMI) [Ratio] 23.45 kg/m2 Norma Haury [employer]LO[employer] VP CREATIVE [employer] CONTENT MARKETING.MANAGER OF DISTRIBUTION Work Phone: [facility] 05-21-2024 09:07-0500 Body weight 61.96 kg Norma Haury GLOBAL VP CREATIVE + CONTENT MARKETING.MANAGER OF DISTRIBUTION Work Phone: [facility] 05-21-2024 09:07-0500 Diastolic blood pressure 74 mm[Hg] Norma Haury GLOBAL VP CREATIVE + CONTENT MARKETING.MANAGER OF DISTRIBUTION Work Phone: [facility] 05-21-2024 09:07-0500 Systolic blood pressure 120 mm[Hg] Norma Haury GLOBAL VP CREATIVE + CONTENT MARKETING.MANAGER OF DISTRIBUTION Work Phone: [facility] 10-25-2023 07:23-0400 Body height 162.6 cm Norma Haury GLOBAL VP CREATIVE + CONTENT MARKETING.MANAGER OF DISTRIBUTION Work Phone: [facility] 10-25-2023 07:23-0400 Body mass index (BMI) [Ratio] 24.03 kg/m2 Norma Haury [employer]LO[employer] VP CREATIVE [employer] CONTENT MARKETING.MANAGER OF DISTRIBUTION Work Phone: [facility] 10-25-2023 07:23-0400 Body weight 63.5 kg Norma Haury GLOBAL VP CREATIVE + CONTENT MARKETING.MANAGER OF DISTRIBUTION Work Phone: [facility] 10-25-2023 07:23-0400 Diastolic blood pressure 78 mm[Hg] Norma Haury GLOBAL VP CREATIVE + CONTENT MARKETING.MANAGER OF DISTRIBUTION Work Phone: [facility] 10-25-2023 07:23-0400 Systolic blood pressure 116 mm[Hg] Norma Haury GLOBAL VP CREATIVE + CONTENT MARKETING.MANAGER OF DISTRIBUTION Work Phone: [facility] Encounters Encounter Date Encounter Type Care Provider Facility Start: 03-11-2025 ambulatory [facility] Facility:[facility] Start: 11-19-2024 End: 11-19-2024 Patient encounter procedure Norma Haury GLOBAL VP CREATIVE + CONTENT MARKETING.MANAGER OF DISTRIBUTION Work Phone: OB/Gynecology Comment on above: Encounter for gyneco logical examination (general) (routine) without abnormal findings (Primary Dx); Encounter for screening mammogram for breast cancer; Hot flashes Start: 11-19-2024 End: 11-19-2024 Patient encounter status Normadarien Torresvince MENDOZA Work Phone: [facility] Start: 11-19-2024 End: 11-19-2024 ambulatory STEVEN GILLETTE Facility:[facility] Start: 11-19-2024 Encounter for gynecological examination (general) (routine) without abnormal findings NORMA LERMA [facility] Start: 08-12-2024 End: 08-13-2024 Telephone encounter Norma Lerma APRN.CNP Work Phone: OB/Gynecology Comment on above: Patient Question Start: 08-04-2024 End: 08-04-2024 Telephone encounter Norma Lerma APRN.MANAGER OF DISTRIBUTION Work Phone: OB/Gynecology Comment on above: Patient Update Start: 06-20-2024 End: 06-20-2024 ambulatory Norma Lerma APRN.CNP Work Phone: OB/Gynecology Comment on above: Hormone replacement therapy (postmenopausal) (Primary Dx); Menopausal symptoms; Hyperlipidemia, unspecified hyperlipidemia type Start: 06-20-2024 End: 06-20-2024 Telemedicine consultation with patient Norma Lerma KELLY Work Phone: OB/Gynecology Start: 05-23-2024 End: 05-23-2024 Telephone encounter Norma Lerma APRN.MANAGER OF DISTRIBUTION Work Phone: OB/Gynecology Comment on above: Results Start: 05-22-2024 End: 05-22-2024 ambulatory NORMA LERMA Facility:[facility] Start: 05-21-2024 End: 05-21-2024 ambulatory NORMA LERMA Facility:[facility] Start: 05-21-2024 End: 05-21-2024 Patient encounter procedure Norma Lerma APRN.CNP Work Phone: OB/Gynecology Comment on above: Menopausal symptoms (Primary Dx) Start: 05-12-2024 End: 05-12-2024 Telephone encounter Norma Lerma APRN.CNP Work Phone: OB/Gynecology Comment on above: hot flashes Start: 10-25-2023 End: 10-25-2023 Patient encounter procedure Norma Lerma APRN.CNP Work Phone: OB/Gynecology Comment on above: Encounter for gyneco logical examination (general) (routine) with abnormal findings (Primary Dx); Encounter for screening for human papillomavirus (HPV); Pap smear for cervical cancer screening; Encounter for screening mammogram for breast cancer; Genitourinary syndrome of menopause; Hot flashes due to menopause; Night sweats Start: 10-25-2023 End: 10-25-2023 Patient encounter status Norma Lerma APRN.CNP Work Phone: [facility] Work Phone: Start: 02-14-2022 Patient encounter procedure [facility] Start: 02-13-2022 End: 02-13-2022 ambulatory [facility] Work Phone: Start: 02-13-2022 End: 02-13-2022 Patient encounter procedure [facility]-Laboratory, Specimen Procedures Date Procedure Procedure Detail Performing Clinician Start: 05-22-2024 Lipid 1996 panel - S mitch or Plasma Norma Lerma APRN.CNP Work Phone: Bacteria identified in Urine by Culture Urine culture Plan of Treatment Date Care Activity Detail Author Start: 05-22-2029 Lipid panel Lipid Screening [facility] Start: 10-24-2028 Screening for malign ant neoplasm of cervix Cervical Cancer Screening [facility] Start: 05-22-2027 Diabetes Screening Diabetes Screenin g [facility] Start: 12-03-2025 End: 12-03-2025 Patient encounter procedure 12/03/2025 8:15 AM EDT Office Visit OB/Gynecology [address] [place], [place] [id number] Norma Lerma APRN.CNP [address] [place], [place] [id number] Annual OB/Gynecology Comment on above: Annual Start: 01-12-2025 Influenza vaccination Influenza Vacc ine (#1) [facility] Start: 10-24-2024 End: 10-24-2024 Patient encounter procedure 10/24/2024 8:15 AM EDT Office Visit OB/Gynecology [address] [place] [address] Norma Lerma APRN.MANAGER OF DISTRIBUTION [address] [place] [address] Annual OB/Gynecology Comment on above: Annual Start: 06-20-2024 End: 06-20-2024 ambulatory 06/20/2024 9:00 AM [facility] OB/Gynecology [address] [place] [address] Norma Lerma, JAVI.MANAGER OF DISTRIBUTION [address] [place] [address] HRT f/u OB/Gynecology Comment on above: HRT f/u Start: 05-21-2024 End: 08-20-2024 25-hydroxyvitamin D3 [Mass/volume] in Serum or Plasma VITAMIN D 25 HYDROXY Lab Routine Menopausal symptoms Expected: 05/21/2024, Expires: 08/20/2024 [facility] Comment on above: Expected: 05/21/2024 , Expires: 08/20/2024 Start: 05-21-2024 End: 08-20-2024 CBC panel - Blood by Automated count COMPLETE BLOOD COUNT Lab Routine Menopausal symptoms Expected: 05/21/2024, Expires: 08/20/2024 [facility] Comment on above: Expected: 05/21/2024 , Expires: 08/20/2024 Start: 05-21-2024 End: 08-20-2024 Comprehensive metabolic 2000 panel - Serum or Plasma COMPREHENSIVE METABOLIC PANEL Lab Routine Menopausal symptoms Expected: 05/21/2024, Expires: 08/20/2024 [facility] Work Phone: Comment on above: Expected: 05/21/2024 , Expires: 08/20/2024 Start: 05-21-2024 End: 08-20-2024 Hemoglobin A1c in Blood HEMOGLOBIN A1C Lab Routine Menopausal symptoms Expected: 05/21/2024, Expires: 08/20/2024 [facility] Comment on above: Expected: 05/21/2024 , Expires: 08/20/2024 Start: 05-21-2024 End: 08-20-2024 Lipid 1996 panel - Serum or Plasma LIPID PANEL BASIC Lab Routine Menopausal symptoms Expected: 05/21/2024, Expires: 08/20/2024 [facility] Comment on above: Expected: 05/21/2024 , Expires: 08/20/2024 Start: 05-21-2024 End: 05-21-2024 Patient encounter procedure 05/21/2024 9:15 AM EST Office Visit OB/Gynecology [address], [place] [id number] Norma Lerma APRN.MANAGER OF DISTRIBUTION [address] [place] [address] Discuss HRT OB/Gynecology Comment on above: Discuss HRT Start: 01-13-2024 Covid-19 Vaccine ( season) Covid-19 Vaccine ( season) [facility] Start: 01-13-2024 Influenza vaccination [facility] Start: 05-14-2023 Behavioral Health Screening Behavioral Health Screening [facility] Start: 01-12-2023 Covid-19 Vaccine ( season) Covid-19 Vaccine ( season) [facility] Start: 05-15-2022 Screening for malign ant neoplasm of colon [facility] Start: 2017 Pneumococcal Vaccine : 50+ (1 of 1 - PCV) Pneumococcal Vaccine: 50+ (1 of 1 - PCV) [facility] Start: 2017 Shingrix Vaccine (1 of 2) Shingrix Vaccine (1 of 2) [facility] Start: 2012 Diabetes Screening Diabetes Screenin g [facility] Start: 2012 Lipid panel Lipid Screening [facility] Start: 2012 Screening for malign ant neoplasm of colon [facility] Start: 2007 Screening for malign ant neoplasm of breast Mammogram Screening [facility] Start: 1988 Screening for malign ant neoplasm of cervix Cervical Cancer Screening [facility] Start: 1986 Hepatitis B Vaccine (1 of 3 - 19+ 3-dose series) Hepatitis B Vaccine (1 of 3 - 19+ 3-dose series) [facility] Start: 1986 Urine microalbumin profile DTaP,Tdap,Td Vaccine (1 - Tdap) [facility] Start: 1985 Anxiety Screening Anxiety Screening [facility] Start: 1985 Depression Screening Depression Scre ening [facility] Start: 1985 Hepatitis C screening Hepatitis C Sc reening [facility] Start: 1985 HIV screening HIV Screening [facility] End: 12-19-2025 DBT Breast - bilateral screening SEAN SCREENING W GABBIE Radiology Routine Encounter for screening mammogram for breast cancer 1 Occurrences starting 11/19/2024 until 12/19/2025 [facility] Work Phone: Comment on above: 1 Occurrences starti ng 11/19/2024 until 12/19/2025 End: 11-23-2024 MG Breast Screening SEAN SCREENING Radiology Routine Encounter for screening mammogram for breast cancer 1 Occurrences starting 10/25/2023 until 11/23/2024 [facility] Work Phone: Comment on above: 1 Occurrences starti ng 10/25/2023 until 11/23/2024 PAP TEST PAP TEST Lab [facility] Encounter for screening for human papillomavirus (HPV) Pap smear for cervical cancer screening 10/25/2023 11:08 AM EDT [facility] Payers Date Payer Category Payer Self-pay [id number] 2021 Private Health Insurance [facility] CHOICE PLAN GENERIC [id number] 2021 Unknown [id number] 2021 Unknown [id number] 2021 Unknown SELF 2016 Unknown [employer] [id number] Unknown [id number] Social History Date Type Detail Facility [facility]: 02-21-2017 [facility] Work Phone: Start: 1965 Sex Assigned At Female [facility] Work Phone: Start: 01-29-2014 [facility] Start: 10-25-2023 End: 11-19-2024 Alcohol intake Ex-drinker (finding) [facility] Start: 10-25-2023 End: 11-19-2024 History of Social function [facility] Start: 10-25-2023 End: 11-19-2024 Tobacco use panel [facility] National Score (1-10 0), lower number is lower risk 48 [facility] Start: 1965 Sex Assigned At Not on file [facility] Functional Status Date Assessment Result Facility 10-28-2014 Are you deaf, or do you have serious difficulty hearing No 10/28/2014 6:33 PM EDT Kaitlin Dominguez LPN No [facility] 10-28-2014 Are you blind, or do you have serious difficulty seeing, even when wearing glasses No 10/28/2014 6:33 PM EDT Kaitlin Dominguez LPN No [facility] 10-28-2014 Do you have serious difficulty walking or climbing stairs No 10/28/2014 6:33 PM EDT Kaitlin Dominguez LPN No [facility] 10-28-2014 Do you have difficul ty dressing or bathing No 10/28/2014 6:33 PM EDT Kaitlin Dominguez LPN No [facility] 10-28-2014 Because of a physica l, mental, or emotional condition, do you have difficulty doing errands alone such as visiting a physician's office or shopping No 10/28/2014 6:33 PM EDT Kaitlin Dominguez LPN No [facility] Mental Status Date Assessment Result Facility 10-28-2014 Because of a physica l, mental, or emotional condition, do you have serious difficulty concentrating, remembering, or making decisions No 10/28/2014 6:33 PM EDT Kaitlin Dominguez LPN No [facility] Clinical Notes 10-25-2023 to 11-19-2024 Patient InstructionsNorma Lerma APRN.ZEE - 11/19/2024 7:58 AM EDTTelephone Encounter - Tierra Grimaldo RN - 08/13/2024 8:35 AM SANDRATHNorma amaya APRN.CNP - 06/20/2024 8:56 AM EST Note Date & Type Note Facility 11-19-2024 Instructions Norma Lerma APRN.CNP - 11/19/2024 8:20 AM EDT Calcium and Vitamin D Supplementation For more information:My [facility] Osteopenia Calcium Age Recommended Daily Allowance Age 19-50 1000 mg elemental calcium per day Age > 50 or menopausal 1200 mg elemental calcium per day Vitamin D Age Recommended Daily Allowance Age < 70 600 international units Vitamin D per day Age > 70 800 international units Vitamin D per day Centers for Disease Control and Prevention recommends that all adults engage in at least 150 to 300 minutes per week of moderate-intensity activity or 75 minutes to 150 minutes per week of vigorous-intensity aerobic physical activity (or a combination of both). [employer] (ACOG) and several other major osteoporosis guideline groups recommend screening for osteoporosis with Dual-energy X-ray Absorptiometry (DXA) in all postmenopausal documented in this encounter [facility] 11-19-2024 Note HNO ID: [id number] Author: NORMA LERMA APRN.MANAGER OF DISTRIBUTION Service: ? Author Type: Nurse Practitioner Type: Progress Notes Filed: 11/19/2024 08:21 Note Text: File Drawer Finisher offered: Patient declines. Arelis is a 59 year old No obstetric history on file. who presents for an annual gynecologic exam without complaints. Doing well with HRT. Only issue has been the reaction to the adhesive - resolves with hydrocortisone use. Mother in law moving in as she is having back surgery on Sunday. This has caused some increased stress. Postmenopausal: Yes HRT use: Yes, estrogen patch and oral progesterone, 2024 Still get period: No LMP: 09/12/2019 Menopause symptoms: Hot flashes Time with current partner: 32 years Number of lifetime partners: 1 control frequency: Never HPV vaccine: No; Last pap smear: 10/25/2023 normal, HPV negative History of abnormal pap: No, all prior PAP smears have been normal Bothersome pelvic pain: No Last mammogram: N/A History of abnormal mammogram: NA OB History No obstetric history on file. 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 Comments: Sexual Activity: Yes; Male Contraception: No contraception data on record PAST MEDICAL HISTORY Diagnosis Date Mixed hyperlipidemia PVC (premature ventricular contraction) PAST SURGICAL HISTORY Procedure Laterality Date BREAST LUMPECTOMY HX Right DELIVERY ONLY X 2 HYSTEROSCOPY, DIAGNOSTIC (SEPARATE hysteroscopy dANDc FAMILY HISTORY Problem Relation Age of Onset Colon Cancer Mother Hyperlipidemia Father Heart Attack Father No Known Problems Brother No Known Problems Brother other (congestive heart failure) Paternal Grandmother Accidental Paternal Grandfather SOCIAL HISTORY Social History Tobacco Use Smoking status: Never Vaping Use Vaping status: Never Used Substance Use Topics Alcohol use: Not Currently Drug use: Never REVIEW OF SYSTEMS Abdomen: No abdominal pain, nausea, vomiting, diarrhea, or constipation. No bloating, early satiety, indigestion, or increased flatulence. Bladder: No dysuria, gross hematuria, urinary frequency, urinary urgency, or incontinence Breast: No breast lumps, nipple d/c, overlying skin changes, redness or skin retraction Allergies and current medication updated:Yes SENSITIVE EXAM: The sensitive examination was discussed with the Patient or Patient's Authorized Motor Vehicle Operator Road Supervisor. As applicable, any other physician, advance practice provider, medical student, or other health professional student that will be observing or involved in the sensitive examination for educational or training purposes was discussed with the Patient or Authorized Motor Vehicle Operator Road Supervisor. The Patient or Authorized Motor Vehicle Operator Road Supervisor has agreed to proceed with the sensitive examination. (Sensitive examination includes inspection and/or palpation of the breasts, pelvis, prostate and anorectal regions). EXAM: BP 124/70 Ht 5' 4 (1.63m) Wt 130 lb (59.0kg) LMP 09/12/2019 BMI 22.30 kg/(m2). GENERAL: pleasant, female in no apparent distress HEENT: Normocephalic, atraumatic, mucus membranes moist, and no lesions NECK: Supple, full range of motion, no adenopathy, and thyroid normal DERMATOLOGY: Normal, without lesions, non-icteric, and non-hirsute BREAST: soft, non-tender, symmetric, no dominant mass, normal nipple-areolar complex, no lymphadenopathy, and no nipple discharge CHEST: Normal inspiratory effort ABDOMEN: soft, non-tender, and no masses PELVIC: external genitalia normal, normal Bartholin's glands, urethra, Ajo's glands, no vulvar lesions, no cervical lesions, good vaginal support, physiologic discharge present, normal appearing perineal body and perianal region BIMANUAL: uterus normal size, shape and consistency, no adnexal masses, and non-tender RECTOVAGINAL: deferred. NEURO: alert and oriented x3,exam grossly non-focal EXTREMITIES: normal ASSESSMENT/PLAN: 1) Health maintenance: Pap/HPV up to date 2023. Mammogram ordered. Declines. Discussed with her recommendation of yearly mammograms. Opts for self breast exams only. Nutrition, exercise and routine health maintenance exams reviewed. Calcium/Vitamin D supplementation information provided. 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 Arelis is a 59 year old No obstetric history on file. who presents for an annual gynecologic exam without complaints. Doing well with HRT. Only issue has been the reaction to the adhesive - resolves with hydrocortisone use. Mother in law moving in as she is having back surgery on Sunday. This has caused some increased stress. Postmenopausal: Yes HRT use: Yes, estrogen patch and oral progesterone, 2024 Still get period: No LMP: 09/12/2019 Menopause symptoms: Hot flashes Time with current partner: 32 years Number of lifetime partners: 1 control frequency: Never HPV vaccine: No; Last pap smear: 10/25/2023 normal, HPV negative History of abnormal pap: No, all prior PAP smears have been normal Bothersome pelvic pain: No Last mammogram: N/A History of abnormal mammogram: NA OB History No obstetric history on file. 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 Comments: Sexual Activity: Yes; Male Contraception: No contraception data on record PAST MEDICAL HISTORY Diagnosis Date Mixed hyperlipidemia PVC (premature ventricular contraction) PAST SURGICAL HISTORY Procedure Laterality Date BREAST LUMPECTOMY HX Right DELIVERY ONLY X 2 HYSTEROSCOPY, DIAGNOSTIC (SEPARATE hysteroscopy d&c FAMILY HISTORY Problem Relation Age of Onset Colon Cancer Mother Hyperlipidemia Father Heart Attack Father No Known Problems Brother No Known Problems Brother other (congestive heart failure) Paternal Grandmother Accidental Paternal Grandfather SOCIAL HISTORY Social History Tobacco Use Smoking status: Never Vaping Use Vaping status: Never Used Substance Use Topics Alcohol use: Not Currently Drug use: Never REVIEW OF SYSTEMS Abdomen: No abdominal pain, nausea, vomiting, diarrhea, or constipation. No bloating, early satiety, indigestion, or increased flatulence. Bladder: No dysuria, gross hematuria, urinary frequency, urinary urgency, or incontinence Breast: No breast lumps, nipple d/c, overlying skin changes, redness or skin retraction Allergies and current medication updated:Yes SENSITIVE EXAM: The sensitive examination was discussed with the Patient or Patient's Authorized Motor Vehicle Operator Road Supervisor. As applicable, any other physician, advance practice provider, medical student, or other health professional student that will be observing or involved in the sensitive examination for educational or training purposes was discussed with the Patient or Authorized Motor Vehicle Operator Road Supervisor. The Patient or Authorized Motor Vehicle Operator Road Supervisor has agreed to proceed with the sensitive examination. (Sensitive examination includes inspection and/or palpation of the breasts, pelvis, prostate and anorectal regions). EXAM: BP 124/70 Ht 5' 4 (1.63m) Wt 130 lb (59.0kg) LMP 09/12/2019 BMI 22.30 kg/(m^2). GENERAL: pleasant, female in no apparent distress HEENT: Normocephalic, atraumatic, mucus membranes moist, and no lesions NECK: Supple, full range of motion, no adenopathy, and thyroid normal DERMATOLOGY: Normal, without lesions, non-icteric, and non-hirsute BREAST: soft, non-tender, symmetric, no dominant mass, normal nipple-areolar complex, no lymphadenopathy, and no nipple discharge CHEST: Normal inspiratory effort ABDOMEN: soft, non-tender, and no masses PELVIC: external genitalia normal, normal Bartholin's glands, urethra, Ajo's glands, no vulvar lesions, no cervical lesions, good vaginal support, physiologic discharge present, normal appearing perineal body and perianal region BIMANUAL: uterus normal size, shape and consistency, no adnexal masses, and non-tender RECTOVAGINAL: deferred. NEURO: alert and oriented x3,exam grossly non-focal EXTREMITIES: normal ASSESSMENT/PLAN: 1) Health maintenance: Pap/HPV up to date 2023. Mammogram ordered. Declines. Discussed with her recommendation of yearly mammograms. Opts for self breast exams only. Nutrition, exercise and routine health maintenance exams reviewed. Calcium/Vitamin D supplementation information provided. Colon cancer screening: up to date with screening (Cologuard) TSH/lipids/glucose: followed by PCP 2) Follow up one year or sooner as needed Hot flashes - ICD9: 782.62, ICD10: R23.2 - Understands risks and benefits of HRT - Reviewed lowest dose for shortest amount of time - Doing well with current dosing, symptoms significantly improved - PROGESTERONE MICRONIZED 100 MG CAPSULE - ESTRADIOL 0.025 MG/24 HR WEEKLY TRANSDERMAL PATCH Norma Lerma APRN.MANAGER OF DISTRIBUTION documented in this encounter [facility] 08-13-2024 Telephone encounter Note Patient notified. Tierra Grimaldo RN [facility] 08-13-2024 Miscellaneous Notes Patient notified. Tierra Grimaldo RN Not a common side effect with HRT. However, HRT can cause increased risk of blood clots so needs to be evaluated by PCP or go to ER. Norma Lerma APRN.ZEE Patient asking if HRT is causing her to wheeze. States it's been happening all day every day for the last 2 weeks. She now has the wheezing when she breathes through her nose. Before it was just when breathing through her mouth. Denies tightness in her chest. Recommended patient contact her PCP for evaluation and that a message would be sent to when she returns to the office. Tierra Grimaldo RN documented in this encounter [facility] 08-13-2024 Telephone encounter Note Not a common side effect with HRT. However, HRT can cause increased risk of blood clots so needs to be evaluated by PCP or go to ER. Norma Lerma APRN.ZEE [facility] 08-12-2024 Telephone encounter Note Patient asking if HRT is causing her to wheeze. States it's been happening all day every day for the last 2 weeks. She now has the wheezing when she breathes through her nose. Before it was just when breathing through her mouth. Denies tightness in her chest. Recommended patient contact her PCP for evaluation and that a message would be sent to when she returns to the office. Tierra Grimaldo RN [facility] 08-04-2024 Telephone encounter Note Patient notified and voiced understanding. Patient states she will call and schedule and appointment if she feels is needed. Prisca Marin RN [facility] 08-04-2024 Miscellaneous Notes Patient notified and voiced understanding. Patient states she will call and schedule and appointment if she feels is needed. Prisca Marin RN I recommend rotating application site if she isn't already. Unfortunately, this is a common side effect of patch. I recommend appointment to discuss. Norma Lerma APRN.CNP Patient called stating that she was prescribed the estradiol patch 05/2024 and is having itching in area where adhesive is. 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 Patient asking if there is another patch available? Or recommendations for people sensitive to the adhesive? Respond to patient by Tymphanyt message documented in this encounter [facility] 08-04-2024 Telephone encounter Note I recommend rotating application site if she isn't already. Unfortunately, this is a common side effect of patch. I recommend appointment to discuss. Norma Lerma APRN.CNP [facility] 08-04-2024 Telephone encounter Note Patient called stating that she was prescribed the estradiol patch 05/2024 and is having itching in area where adhesive is. Patient tried removing the adhesive and using tape but this is not practical for assisted use. Patient asking if there is another patch available? Or recommendations for people sensitive to the adhesive? Respond to patient by [employer] message [facility] 06-20-2024 Note HNO ID: [id number] Author: NORMA LERMA APRN.MANAGER OF DISTRIBUTION Service: ? Author Type: Nurse Practitioner Type: Progress Notes Filed: 06/20/2024 09:10 Note Text: OGI VIRTUAL VISIT Virtual limitations reviewed with patient, as well as possible need to travel to have diagnostic services. Patient voiced understanding. Patient seen on [employer] Video Visit platform. Location of patient: [place] I have communicated my name and active licensure. The patient's identity and physical location were verified at the time of this visit. Either the patient or their legal food service representative has been informed of the risks and benefits of -- and alternatives to -- treatment through a remote evaluation and consents to proceed with the evaluation remotely. CC: HRT Follow Up HPI: Arelis was started on Climara patch and micronized progesterone for night sweats, hot flashes, irritability, intrusive thoughts, and brain fog on 05/21/24. She is feeling much better. Reports intensity and frequency of night sweats and hot flashes has improved. Mood has been much more stable. ROS PE General: well appearing 59 year old female in no apparent distress Neuro: Alert and Oriented x3 Psych: Mood normal, affect normal, speech non pressured A/P 1. Hormone replacement therapy (postmenopausal) - ICD9: V07.4, ICD10: Z79.890 (primary diagnosis) 2. Menopausal symptoms - ICD9: 627.2, ICD10: N95.1 - QOL much improved on HRT - Continue current dose of patch and progesterone - Reviewed risks and that goal is to be on lowest dose for shortest amount of time - Arelis is accepts risks and wishes to continue 3. Hyperlipidemia, unspecified hyperlipidemia type - ICD9: 272.4, ICD10: E78.5 - Stopped taking Crestor - Discussed risks and benefits of statins - Recommend following up with PCP for management - Continue improving diet and exercise Norma Lerma APRN.CNP I spent a total of 15 minutes on the date of the service which included preparing to see the patient, [id number] patient care, completing clinical documentation, obtaining and/or reviewing separately obtained history, and communicating results to the patient/family/caregiver. [facility] 06-20-2024 History of Presen t illness Narrative OGI VIRTUAL VISIT Virtual limitations reviewed with patient, as well as possible need to travel to have diagnostic services. Patient voiced understanding. Patient seen on [employer] Video Visit platform. Location of patient: [place] I have communicated my name and active licensure. The patient's identity and physical location were verified at the time of this visit. Either the patient or their legal food service representative has been informed of the risks and benefits of -- and alternatives to -- treatment through a remote evaluation and consents to proceed with the evaluation remotely. CC: HRT Follow Up HPI: Arelis was started on Climara patch and micronized progesterone for night sweats, hot flashes, irritability, intrusive thoughts, and brain fog on 05/21/24. She is feeling much better. Reports intensity and frequency of night sweats and hot flashes has improved. Mood has been much more stable. ROS PE General: well appearing 59 year old female in no apparent distress Neuro: Alert and Oriented x3 Psych: Mood normal, affect normal, speech non pressured A/P 1. Hormone replacement therapy (postmenopausal) - ICD9: V07.4, ICD10: Z79.890 (primary diagnosis) 2. Menopausal symptoms - ICD9: 627.2, ICD10: N95.1 - QOL much improved on HRT - Continue current dose of patch and progesterone - Reviewed risks and that goal is to be on lowest dose for shortest amount of time - Arelis is accepts risks and wishes to continue 3. Hyperlipidemia, unspecified hyperlipidemia type - ICD9: 272.4, ICD10: E78.5 - Stopped taking Crestor - Discussed risks and benefits of statins - Recommend following up with PCP for management - Continue improving diet and exercise Norma Lerma APRN.CNP I spent a total of 15 minutes on the date of the service which included preparing to see the patient, [id number] patient care, completing clinical documentation, obtaining and/or reviewing separately obtained history, and communicating results to the patient/family/caregiver. documented in this encounter [facility] 05-23-2024 Telephone encounter Note Patient notified. F/u appointment scheduled. Speedy Soares RN [facility] 05-23-2024 Miscellaneous Notes Patient notified. F/u appointment scheduled. Speedy Soares RN Left message to call office Please notify patient: Elevated fasting glucose and elevated cholesterol. First line therapy is improving diet and exercise. Follow up with me in 4 weeks to assess HRT or sooner as needed. Norma Lerma APRN.CNP documented in this encounter [facility] 05-23-2024 Telephone encounter Note Left message to call office [facility] 05-23-2024 Telephone encounter Note Please notify patient: Elevated fasting glucose and elevated cholesterol. First line therapy is improving diet and exercise. Follow up with me in 4 weeks to assess HRT or sooner as needed. Norma Lerma APRN.CNP [facility] 05-21-2024 Instructions Norma Lerma APRN.CNP - 05/21/2024 9:21 AM EST This is from the [facility] website: Placing the patch on your skin Apply the sticky side of the patch to either the upper buttocks or lower abdomen (near waistline) Avoid touching the sticky side of the patch with your fingers Note: Place directly above waistline, since clothing and belts may cause the patch to be rubbed off Do not apply patch to your breasts Only apply patch to skin that is clean, dry, and free of any powder, oil, or lotion You should not apply the patch to injured, burned, or irritated skin, or areas with skin conditions (such as birthmarks, tattoos, or skin that is very hairy) Press the patch firmly onto your skin Press the patch firmly with your fingers for at least 10 seconds Rub the edges of the patch to make sure that it will stick to your skin Note: Contact with water while you are swimming, using a sauna, bathing, or showering may cause the patch to fall off If your patch falls off reapply it. If you cannot reapply the patch, apply a new patch to another area and continue to follow your original application schedule If you stop using your patch or forget to apply a new patch as scheduled, you may have spotting or bleeding, and your symptoms may come back Press patch patch for 10 seconds Throwing away your used patch When it is time to change your patch, remove the old patch before you apply a new patch To throw away the used patch, fold the sticky side of the patch together, place it in a sturdy child-proof container, and place this container in the trash. Used patches should not be flushed in the toilet documented in this encounter [facility] 05-21-2024 Note HNO ID: [id number] Author: NORMA LERMA APRN.CNP Service: ? Author Type: Nurse Practitioner Type: Progress Notes Filed: 05/21/2024 09:31 Note Text: Arelis Adan is a 59 year old female who presents for problem visit to discuss HRT. HPI: Arelis presents to discuss HRT. She is having night sweats, hot flashes, irritability, intrusive thoughts, and brain fog. These symptoms are intermittent, but affecting her quality of life. The hot flashes and night sweats are daily. Intrusive thoughts revolve more around the fear of something bad happening or hyper focusing on tasks. Denies thoughts of self harm. Menopause in early 50s, less than 5 years ago. History of hyperlipidemia. Has been on HRT via patch in the past. OB History No obstetric history on file. 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 Comments: Sexual Activity: Yes; Male Contraception: No contraception data on record PAST MEDICAL HISTORY Diagnosis Date Mixed hyperlipidemia PVC (premature ventricular contraction) PAST SURGICAL HISTORY Procedure Laterality Date BREAST LUMPECTOMY HX Right DELIVERY ONLY X 2 HYSTEROSCOPY, DIAGNOSTIC (SEPARATE hysteroscopy dANDc FAMILY HISTORY Problem Relation Age of Onset Colon Cancer Mother Hyperlipidemia Father Heart Attack Father No Known Problems Brother No Known Problems Brother other (congestive heart failure) Paternal Grandmother Accidental Paternal Grandfather Social History Tobacco Use Smoking status: Never Vaping Use Vaping status: Never Used Substance Use Topics Alcohol use: Not Currently Drug use: Never Current Outpatient Medications Medication Sig rosuvastatin (CRESTOR) 10 mg tablet Take 10 mg by mouth once daily. multivit,thx,calcium,iron,mins (MULTIVITAMIN AND MINERAL ORAL) Take 1 tablet by mouth once daily. Cholecalciferol, Vitamin D3, (VITAMIN D) 25 mcg (1,000 unit) cap Take 1,000 Units by mouth once daily. mecobalamin (B12 ACTIVE ORAL) Take by mouth once daily. No current facility-administered medications for this visit. Allergies As of Date: 05/21/2024 (No Known Allergies) Fully Assessed 10/25/2023 REVIEW OF SYSTEMS Expanded ROS: GENERAL: + hot flashes, night sweats, brain fog Allergies and current medication updated:Yes SENSITIVE EXAM: Sensitive exam not performed. EXAM: BP 120/74 Wt 136 lb 9.6 oz (62.0kg) LMP 09/12/2019 GENERAL: pleasant, female in no apparent distress HEENT: Normocephalic, atraumatic, mucus membranes moist, and no lesions CHEST: Normal inspiratory effort NEURO: alert and oriented x3,exam grossly non-focal EXTREMITIES: normal ASSESSMENT AND PLAN: 1. Menopausal symptoms - ICD9: 627.2, ICD10: N95.1 - Would like to start HRT - Reviewed risks and benefits. Reviewed increased risks of blood clots, heart attack, stroke and possible breast cancer. Recommend patch again due to hyperlipidemia. Reviewed how to use. Rx for progesterone sent. Reviewed importance of taking nightly to avoid risk of uterine hyperplasia. - Reviewed recommendation of most effective lowest dose for shortest amount of time - COMPREHENSIVE METABOLIC PANEL - LIPID PANEL BASIC - COMPLETE BLOOD COUNT - VITAMIN D 25 HYDROXY - HEMOGLOBIN A1C RTO in 4 weeks or sooner as needed. Norma Lerma APRN.MANAGER OF DISTRIBUTION Medical Decision Making: Problems: Low: Stable chronic illness Data: Unique test(s) ordered: 3+ Risk: Low: Low risk from testing/treatment Moderate: Drug management Medical Decision Making Level: 4 - Moderate [facility] 05-21-2024 History of Presen t illness Narrative Arelis Adan is a 59 year old female who presents for problem visit to discuss HRT. HPI: Arelis presents to discuss HRT. She is having night sweats, hot flashes, irritability, intrusive thoughts, and brain fog. These symptoms are intermittent, but affecting her quality of life. The hot flashes and night sweats are daily. Intrusive thoughts revolve more around the fear of something bad happening or hyper focusing on tasks. Denies thoughts of self harm. Menopause in early 50s, less than 5 years ago. History of hyperlipidemia. Has been on HRT via patch in the past. OB History No obstetric history on file. 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 Comments: Sexual Activity: Yes; Male Contraception: No contraception data on record PAST MEDICAL HISTORY Diagnosis Date Mixed hyperlipidemia PVC (premature ventricular contraction) PAST SURGICAL HISTORY Procedure Laterality Date BREAST LUMPECTOMY HX Right DELIVERY ONLY X 2 HYSTEROSCOPY, DIAGNOSTIC (SEPARATE hysteroscopy d&c FAMILY HISTORY Problem Relation Age of Onset Colon Cancer Mother Hyperlipidemia Father Heart Attack Father No Known Problems Brother No Known Problems Brother other (congestive heart failure) Paternal Grandmother Accidental Paternal Grandfather Social History Tobacco Use Smoking status: Never Vaping Use Vaping status: Never Used Substance Use Topics Alcohol use: Not Currently Drug use: Never Current Outpatient Medications Medication Sig rosuvastatin (CRESTOR) 10 mg tablet Take 10 mg by mouth once daily. multivit,thx,calcium,iron,mins (MULTIVITAMIN AND MINERAL ORAL) Take 1 tablet by mouth once daily. Cholecalciferol, Vitamin D3, (VITAMIN D) 25 mcg (1,000 unit) cap Take 1,000 Units by mouth once daily. mecobalamin (B12 ACTIVE ORAL) Take by mouth once daily. No current facility-administered medications for this visit. Allergies As of Date: 05/21/2024 (No Known Allergies) Fully Assessed 10/25/2023 REVIEW OF SYSTEMS Expanded ROS: GENERAL: + hot flashes, night sweats, brain fog Allergies and current medication updated:Yes SENSITIVE EXAM: Sensitive exam not performed. EXAM: BP 120/74 Wt 136 lb 9.6 oz (62.0kg) LMP 09/12/2019 GENERAL: pleasant, female in no apparent distress HEENT: Normocephalic, atraumatic, mucus membranes moist, and no lesions CHEST: Normal inspiratory effort NEURO: alert and oriented x3,exam grossly non-focal EXTREMITIES: normal ASSESSMENT AND PLAN: 1. Menopausal symptoms - ICD9: 627.2, ICD10: N95.1 - Would like to start HRT - Reviewed risks and benefits. Reviewed increased risks of blood clots, heart attack, stroke and possible breast cancer. Recommend patch again due to hyperlipidemia. Reviewed how to use. Rx for progesterone sent. Reviewed importance of taking nightly to avoid risk of uterine hyperplasia. - Reviewed recommendation of most effective lowest dose for shortest amount of time - COMPREHENSIVE METABOLIC PANEL - LIPID PANEL BASIC - COMPLETE BLOOD COUNT - VITAMIN D 25 HYDROXY - HEMOGLOBIN A1C RTO in 4 weeks or sooner as needed. Norma Lerma APRN.CNP Medical Decision Making: Problems: Low: Stable chronic illness Data: Unique test(s) ordered: 3+ Risk: Low: Low risk from testing/treatment Moderate: Drug management Medical Decision Making Level: 4 - Moderate documented in this encounter [facility] 05-12-2024 Telephone encounter Note Patient notified and voiced understanding, appointment scheduled. Prisca Marin RN [facility] 05-12-2024 Miscellaneous Notes Patient notified and voiced understanding, appointment scheduled. Prisca Marin RN Left message for patient to call office. Carolina Menendez RN Needs appointment to discuss this Norma Lerma APRN.CNP Patient calling asking if she can be prescribed HRT. Patient was last seen in the office on 10/25/23 for menopausal symptoms and then started Bonafide at that time. Patient states she has been taking Bonafide for 6 months and has not had any improvement in her symptoms. Patient complaining of Hot flashes, night sweats and brain fog. Patient states she did use the patch in the past with success. Please address. Prisca Marin RN documented in this encounter [facility] 05-12-2024 Telephone encounter Note Left message for patient to call office. Carolina Menendez RN [facility] 05-12-2024 Telephone encounter Note Needs appointment to discuss this Norma Lerma APRN.CNP [facility] 05-12-2024 Telephone encounter Note Patient calling asking if she can be prescribed HRT. Patient was last seen in the office on 10/25/23 for menopausal symptoms and then started Bonafide at that time. Patient states she has been taking Bonafide for 6 months and has not had any improvement in her symptoms. Patient complaining of Hot flashes, night sweats and brain fog. Patient states she did use the patch in the past with success. Please address. Prisca Marin RN [facility] 10-25-2023 Instructions Maria Guadalupe NormaJAVI ledezma.[facility] - 10/25/2023 7:49 AM EDT Images from the original note were not included. Menopause Resources: [employer]Menopause https://[employer]/help-in-a -obykj-jcsiu-vqc-kpzto-ssy-pekh gw-ehsliyxsxz-tqgrrqhe/ [facility] [facility] www.hormone.org [place] [employer] [phone] www.menopause.org Menopause and Me https://www.menopauseandme.co.u k/en-gb Red Hot Mamas https://redhotmamas.org/ Not all WOMEN experience menopause in the same way. For some, menopause can bring on an array of uncomfortable symptoms. Others may experience few if any discomforts. This information has been prepared to help you manage the most common changes associated with the midlife transition. RELIEVING HOT FLASHES * Identify and avoid your hot flash triggers. Common triggers may include stress, caffeine, alcohol, spicy foods, tight clothing, heat and cigarette smoke. * Keep the bedroom cool. Use fans during the day. Wear light layers of clothes with natural fibers. * Try deep, slow abdominal paced breathing (6 to 8 breaths per minute). Practice deep breathing for 15 minutes in the morning, 15 minutes in the evening and at the onset of hot flashes. * Exercise daily. Walking, swimming, dancing and bicycling with helmet are good choices along with yoga. * Add soy protein in the form of foodstuffs NOT supplements(40-60 mg) to your diet daily in place of animal protein. Promensil and isoflavone tablets have NOT been shown to significantly help menopausal symptoms * Black cohosh (in the form of Remifemin) can be used for hot flashes and has been approved by [place] [employer] [place] for only 6 months of use, however has NOT been well studied in the [place] for exterminator helper termite effects AND THERE HAVE BEEN REPORTS OF LIVER TOXICITY WITH BLACK COHOSH USE. (Avoid kava kava, valerian root and beware that most herbal products are NOT regulated in the [place] and some have been associated with liver toxicity) NOTE: HORMONE THERAPY (HT) is the MOST EFFECTIVE treatment and the only FDA approved treatment for menopausal symptoms. Any form of hormones, including 'bioidentical' hormones have risks as well as benefits. * Antidepressants like effexor (venlaflaxine) a NSRI or Pristiq (desvenlafaxine) another agent, neurontin (gabapentin) may help block hot flashes and all have risks and benefits like any prescription or off the shelf medicine. * Use of bellergal is discouraged as it contains an addictive barbiturate. RELIEVING INSOMNIA * Keep the bedroom cool to prevent night sweats. Special chill pillows that are cool are available. * Avoid using sleeping pills. * Exercise daily but not right before bedtime. * Avoid caffeine and alcohol at night. * Take a warm shower at bedtime. * Wear socks to bed (lowers central body temperature) COPING :WITH MOOD SWINGS, FEARS AND DEPRESSION * Find a self-calming skill to practice, such as yoga, meditation or slow deep breathing. * Avoid tranquilizers, if possible, however prescription anti-depressants can be very effective. * Engage in a creative outlet that fosters a sense of achievement. * Stay connected with your family and community; nurture your friendships. RELIEVING PAINFUL INTERCOURSE * Try using a vaginal water-based moisturizing lotion 3 times a week (like replens or SILK-E) or lubricant during intercourse like KY jelly or lubrin or astroglide. *Local estrogen treatments for the vagina/bladder like estring vaginal ring can be used and estring can be used in breast cancer survivors as only a local therapy PREVENTING OSTEOPOROSIS * Calcium and vitamin D can slow bone loss and may decrease fractures. Consume1,500 milligrams of calcium a day in divided doses. Calcium is necessary but not always sufficient. Good sources of calcium are calcium supplements, like Tums, fruit juices and breads; lowfat dairy products; green leafy vegetables such as broccoli, kale and spinach greens, almonds; and soy milk. Calcium CITRATE like Citracal D is well absorbed with or without food/stomach acid and is the preferred calcium supplement in women on stomach acid blockers and women with a history of kidney stones. * Vitamin D aids in the absorption of calcium and stimulates bone formation. Consume at least OF SEPARATE 1,000 iu international units of vitamin D a day and 2,000 iu daily if you have been found to be low * Eat foods low in sodium, low in animal protein and low in caffeine. * Bone mass is built before menopause as a result of exercising, diet, and genetics. Exercises that increase bone mass are the ones that make the muscles work against gravity. Walking and muscle-building exercise may reduce bone loss and fractures and improve balance. Visit www.nof.org, the National Osteoporosis Foundation web site for more bone tips. PREVENTING HEART DISEASE * Eat a variety of vegetables, fruits and whole grains, including soy foods (NOT supplements). Limit salt, cholesterol and fat, especially animal fat. Consider ingesting 25 grams of soy a day. Avoid Transfats the 'partially hydrogenated oils.' Consume the omega 3 fats in flaxseed, fish, tuna, salmon, and walnuts and almonds at least twice a week. * Get a least 30-60 minutes of moderate exercise over the course of each day. Many activities increase the heart rate, including gardening, walking, dancing and aerobic exercises. The activity period does not need to be continuous. Consider getting a pedometer to monitor your activity and strive to walk at least 10,000 steps a day. * Do NOT smoke.Even 1-2 cigarrettes a day increases risk. * Maintain a healthy weight. Know your BMI (body mass index) * Follow your physician's instructions for controlling high blood pressure-note new guidelines indicate that BP of over 115/75 are associated with potential organ damage. Diabetes prevention and control is very important as diabetes is a 'heart diease equivalent'. Cholesterol lowering with diet and statin agents have been shown to reduce the risk of heart disease. Consider having an [facility] [place] test for further cardiac risk assessment if you have borderline elevations in the blood lipids/fats. * Take a vitamin supplement under physician guidance. Choose one that contains the antioxidants including vitamins E and C and B complex like centrum silver. Avoid taking B-carotene supplements. * Take one aspirin daily, ONLY if approved by your physician based on your risk for heart disease. (Women at LOW risk for heart disease should NOT take daily aspirin-however women by age 65 should consider a baby aspirin daily as it has been associated with a 30% stroke risk reduction). *Revaree is a NAMS recommended, leading selling vaginal insert for the relief of symptoms of vaginal atrophy and the faith of the vagina's epithelial lining and pH -- hormone free. In [id number] clinical trials, Revaree performed as well as estrogen creams in reducing symptoms of vaginal atrophy (dryness, itching, painful intercourse, and burning). The Revaree insert is convenient and not messy and should be used 2 to 3 times a week. Revaree is professionally recommended, easily ordered by the patient, costs about $40 per month, and shipped directly to the patient's home. Revaree is a perfect choice for women who need relief and either cannot or do not want to use hormonal therapy for their vaginal atrophy symptoms. *Clairvee is the only oral probiotic that has been proven to target the vagina's microbiome, restoring lactobacilli, and thus reducing the recurrence of BV and yeast. Rigorous clinical trials show that Clairvee significantly reduces these annoying recurrences while balancing the vagina's microbiome and pH. Clairvee should be taken orally each day for 15 days of the month; 15 days off; then resumed for 15 days and so forth. Clairvee begins to balance the microbiome in as little as 15 days with best results at 6 months. Clairvee is professionally recommended, easily ordered by the patient, costs about $35 per month, and directly shipped to the patient's home. Clairvee is a great option for patients who struggle with recurring BV and yeast who have had no other prevention strategies in the past. It is also a great choice for women who have GSM symptoms of odor, itching, and discharge with an intermediate rommel score, but have not had any other means to eliminate the embarrassing symptoms. *Relizen is a clinically validated, hormone free, safe, and effective therapy that significantly reduces the intensity and frequency of hot flashes. Relizen works by expressing a mild seratenurgic effect on the hypothalamus. Relizen is professionally recommended, easily ordered by the patient, costs $35 per month, and directly shipped to the patient's home. Relizen is a great choice for women who struggle with hot flashes and either cannot or do not want to use hormone therapy. Vaginal atrophy is caused by a decreased amount of estrogen, which can occur after menopause. Decreased estrogen results in the following: reduced blood flow to the vaginal tissues, thin/dry vaginal lining, decreased vaginal wall elasticity, and vaginal narrowing. Vaginal hernandez are flexible with a thick lining and have a healthy blood flow to the vaginal tissue in premenopausal patients. This can cause pain with intercourse, dryness, irritation, itching, and even recurrent UTIs in some patients. Lubricants and moisturizers list The [id number] vaginal moisturizer and lubricant products can be confusing to sort through, especially since there are no FDA requirements for how they can be marketed or labeled. In general there are 3 categories of products: Vaginal lubricants should be used at the time of intercourse to decrease friction. Long acting vaginal moisturizers are used at least twice weekly to increase vaginal (internal) lubrication and elasticity. Vulvar moisturizers are for external use for vulvar comfort and do not impact vaginal lubrication or elasticity. Vaseline petroleum products and oils (baby oil, coconut, olive oil,) can make condoms break, so should not be used with condoms. In many women, these can cause infections. However, if you have sore spots on the vulva (outer lips), then petroleum jelly can sometimes be helpful. All of the products listed below are over the counter. Many can be bought in any drugstore or online. Also, many [employer] stores do carry high-quality lubricant products. VAGINAL LUBRICANTS: (For use during sexual activity) Lubricants should be applied to the outside and opening of the vagina at the time of sexual activity. The lubricant can also be applied to the penis or a device. Silicone based lubricants should not be used on silicone vibrators or toys. Both silicone and water based lubricants are condom compatible. If you use a water based lubricant, it is also important to choose a lubricant with low osmolality since lubricants with high osmolality increase the chance of irritation and infection. Osmolality information can be hard to find. All of the following lubricants have a low osmolality, are pH balanced, and are preservative free. WATER BASED LUBRICANTS Good Clean Love (made of organic ingredients) Pulse H2Oh! Sylk Natural System Radha PreSeed (Does not impact sperm motility and can be used if trying to conceive, also good for those with multiple sensitivities, though may not work as well) SILICONE BASED LUBRICANTS Uber lube Replens Silky Smooth Pulse Aloe-ahh Wet [place] RADHA Premium Personal Lubricant PINK Silicone Lubricant SLIQUID Organics silk Pulse is a hands free personal lubricant warming dispenser and is sold with water or silicone based lubricant pods that some women prefer for travel. LONG ACTING VAGINAL MOISTURIZERS: (For regular use inside vagina to maintain moisture) Long acting vaginal moisturizers should be used at least twice weekly on a regular basis. Many women find they need to use a moisturizer 3-5 times/week. In addition, it is important to not only apply the moisturizer inside the vagina, but also to apply to the vestibule (the external area surrounding the opening of the vagina). Women who are not sexually active often find that the regular use of a long acting vaginal moisturizer makes them feel more comfortable. Steam Plant Control Room Operator beware: many lubricants are labeled as moisturizers to make them more appealing to consumers (even though they don t function as a true moisturizer). Replens Long Acting Vaginal Moisturizer (Available in all drugstores) HyaloGyn Vaginal Hydrating Gel (hybrid moisturizer, but can function as lubricant too) Revaree (hyaluronic acid) VULVAR MOISTURIZERS: (For external use) Replens Moisture Restore Comfort Gel is to be used externally for dry vulvar skin. Aquaphor can also be applied externally for comfort. [place] Aloe [place]: Many people are allergic to aloe, so keep this in mind with products like this that have aloe in it. Medicine Mama s V magic: Not much medical studies on this, but many patients swear by it, has oil, beeswax and honey in it- best used externally only. documented in this encounter [facility] 10-25-2023 History of Presen t illness Narrative Arelis is a 58 year old No obstetric history on file. who presents for an annual gynecologic exam with complaints, menopausal symptoms, with the most bothersome symptoms being hot flashes and night sweats. Has been caring for parents/in laws. She works at [employer]. Postmenopausal: Yes since age 55 HRT use: Not currently, patch use a few years ago Last Pap: normal HPV: unknown History of abnormal pap: No Last mammogram: never History of abnormal mammogram: No Sexually active: Yes Patient concerns for STD exposure: No. Pain with intercourse: No Postcoital bleeding: No Hot flashes: Yes 3-4 per day Night sweats: Yes, 1-2 per night Vaginal dryness: Rarely Exercise: walking, gardening OB History No obstetric history on file. 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 No bloating, early satiety, indigestion, or increased flatulence. Bladder: No dysuria, gross hematuria, urinary frequency, urinary urgency, or incontinence Breast: No breast lumps, nipple d/c, overlying skin changes, redness or skin retraction Allergies and current medication updated:Yes EXAM: BP 116/78 Ht 5' 4 (1.63m) Wt 140 lb (63.5kg) LMP 09/12/2019 BMI 24.02 kg/(m^2). GENERAL: pleasant, female in no apparent distress HEENT: Normocephalic, atraumatic, mucus membranes moist, and no lesions NECK: Supple, full range of motion, no adenopathy, and thyroid normal DERMATOLOGY: Normal, without lesions, non-icteric, and non-hirsute BREAST: soft, non-tender, symmetric, no dominant mass, normal nipple-areolar complex, no lymphadenopathy, and no nipple discharge CHEST: Normal inspiratory effort ABDOMEN: soft, non-tender, and no masses PELVIC: external genitalia normal, normal Bartholin's glands, urethra, Ajo's glands, no vulvar lesions, no cervical lesions, good vaginal support, physiologic discharge present, normal appearing perineal body and perianal region + atrophy to cervix BIMANUAL: uterus normal size, shape and consistency, no adnexal masses, and non-tender RECTOVAGINAL: deferred. NEURO: alert and oriented x3,exam grossly non-focal EXTREMITIES: normal ASSESSMENT/PLAN: 1) Health maintenance: Pap done with HPV. Mammogram ordered and recommended. Nutrition, exercise and routine health maintenance exams reviewed. Taking Vitamin D and Calcium supplements. 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 Reviewed nonhormonal, but not FDA approved - Reviewed hormonal options - Plans to trial Relizen. To follow up if symptoms not improving - Written information on menopause symptoms provided Norma Lerma APRN.CNP documented in this encounter [facility] Evaluation note No assessment inform ation available [facility] Work Phone: Evaluation note Diagnosis Encounter for gynecological examination (general) (routine) with abnormal findings- Primary Encounter for screening for human papillomavirus (HPV) Special screening examination for human papillomavirus (HPV) Pap smear for cervical cancer screening Screening for malignant neoplasm of the cervix Encounter for screening mammogram for breast cancer Genitourinary syndrome of menopause Hot flashes due to menopause Night sweats Generalized hyperhidrosis documented [facility] Diagnosis Menopausal symptoms- Primary Symptomatic menopausal or female climacteric states [facility] Diagnosis Hormone replacement therapy (postmenopausal)- Primary Need for prophylactic hormone replacement therapy (postmenopausal) Menopausal symptoms Symptomatic menopausal or female climacteric states Hyperlipidemia, unspecified hyperlipidemia type [facility] Diagnosis Encounter for gynecological examination (general) (routine) without abnormal findings- Primary Encounter for screening mammogram for breast cancer Hot flashes Symptomatic menopausal or female climacteric states documented [facility]ative)* Diagnostic Procedure Only (Routine) - Pending Review Specialty Diagnoses / Procedures Referred By Jakob harris Referred To Contact [facility] Diagnoses Encounter for screening mammogram for breast cancer Procedures SEAN SCREENING SCREENING MAMMOGRAPHY BI 2-VIEW BREAST INC Norma Chirinos APRN.MANAGER OF DISTRIBUTION [address] [place] [address] [facility] [address] [place] [address] Referral ID Status Reason Start Date Expiration Date Visits Requested Visits Authorized [id number] Pending Review Auto-Generat ed Referral 10/25/2023 11/23/2024 1 1 [facility] Advance Directives No Advanced Directives Records Found Advance Directive Response Recorded Date/ Time Living Will No February 21 11:05am Power of Medical Records Specialist No February 21, 2017 11:05am Summary Purpose Family History No Family History Records FoundNo Family History Records Found Additional Source Comments Goals (unrecognized section and content) Goals may be documented in a n alternate section Source Comments (unrecognize d section and content) In the event this informatio n is protected by the Federal Confidentiality of Alcohol and Drug Abuse Patient Records regulations: The Federal rules restrict any use of the information to criminally investigate or prosecute any alcohol or drug abuse patient.[facility] the event this information is protected by the Federal Confidentiality of Alcohol and Drug Abuse Patient Records regulations: The Federal rules restrict any use of the information to criminally investigate or prosecute any alcohol or drug abuse patient.[facility] the event this information is protected by the Federal Confidentiality of Alcohol and Drug Abuse Patient Records regulations: The Federal rules restrict any use of the information to criminally investigate or prosecute any alcohol or drug abuse patient.[facility] the event this information is protected by the Federal Confidentiality of Alcohol and Drug Abuse Patient Records regulations: The Federal rules restrict any use of the information to criminally investigate or prosecute any alcohol or drug abuse patient.[facility] the event this information is protected by the Federal Confidentiality of Alcohol and Drug Abuse Patient Records regulations: The Federal rules restrict any use of the information to criminally investigate or prosecute any alcohol or drug abuse patient.[facility] the event this information is protected by the Federal Confidentiality of Alcohol and Drug Abuse Patient Records regulations: The Federal rules restrict any use of the information to criminally investigate or prosecute any alcohol or drug abuse patient.[facility] the event this information is protected by the Federal Confidentiality of Alcohol and Drug Abuse Patient Records regulations: The Federal rules restrict any use of the information to criminally investigate or prosecute any alcohol or drug abuse patient.[facility] the event this information is protected by the Federal Confidentiality of Alcohol and Drug Abuse Patient Records regulations: The Federal rules restrict any use of the information to criminally investigate or prosecute any alcohol or drug abuse patient.[facility] Reason for Visit (unrecogniz ed section and content) Reason Comments Well Woman Reason Comments hot flashes Reason Comments Discussion HRT Reason Comments Results Reason Comments Symptomatic Menopause Reason Comments Patient Update Reason Comments Patient Question Care Teams (unrecognized sec tion and content) Inward Toll Operator Relationship Specialty Start Date End Date Steven Gillette MD [address] [place] [address] [address] [place] [address] PCP - General Family Medicine 11/19/24 INFORMATION SOURCE (unrecogn ized section and content) DATE CREATED AUTHOR 11/23/2024 [facility] DATE CREATED AUTHOR AUTHOR'S ORGANIZ ATION 03/12/2025 [facility] FOR RECORDS PERTAINING TO PATIENTS WHO ARE OR HAVE BEEN ENROLLED IN A CHEMICAL DEPENDENCY/SUBSTANCEABUSE PROGRAM, SOME INFORMATION MAY BE OMITTED. This clinical summary was aggregated from multiple sources. Caution should be exercised in using it in the provision of clinical care. This summary normalizes information from multiple sources, and as a consequence, information in this document may materially change the coding, format and clinical context of patient data. In addition, data may be omitted in some cases. CLINICAL DECISIONS SHOULD BE BASED ON THE PRIMARY CLINICAL RECORDS. [facility]. provides no warranty or guarantee of the accuracy or completeness of information in this document.
[2025-03-25 21:48] LABS: Squamous Epithelial Cells - UA 0-5 SEEN /hpf (5-10)
[2025-03-25 21:49] LABS: Calcium Oxalate Crystals Ur 1+ /hpf (<or=2+); Red Blood Cells-Urine 0-5 SEEN /hpf (0-5)
[2025-03-26] MEDS: 0.9% Saline Lock 10 ML Syringe IV (00:04)
[2025-03-26] MEDS: 0.9% Normal Saline (1000mL) 1,000 ML 100 ML IV (00:05)
[2025-03-26] MEDS: Ceftriaxone 2 GM in 0.9% Normal Saline (50mL MB+) 50 ML IV (00:20)
[2025-03-26 02:42] VITALS: BMI 22.3
[2025-03-26 05:24] LABS: Hematocrit 33.7 % (37-47); Hemoglobin 10.9 g/dL (12.0-15.0); Immature Granulocytes Count 0.050 X10^3/uL (0.0-0.0); Mean Corp Hgb Conc 32.3 g/dL (32-36); Mean Corpuscular Volume 93.4 fL (81-99); Mean Platelet Vol. 8.6 fl (6.2-12.0); NRBC Flagged by Analyzer 0 % (0-5); Platelet Count 428 K/mm3 (150-450); RBC Distribution Width CV 12.0 % (11.6-14.6); RBC Distribution Width SD 41.5 fl (35.1-43.9); Red Blood Count 3.61 M/mm3 (4.2-5.4); White Blood Count 8.0 K/mm3 (4.4-11.0)
[2025-03-26 05:48] VITALS: BP 137/88; PULSE 107; RESP 18; TEMP 37.3; O2SAT 98
--- NOTE | 2025-03-26 06:00 | US_ITS ---
PROCEDURE: THORACENTESIS W US N/A REASON FOR EXAM: LEFT SIDED PLEURAL EFFUSION, CONSIDER BX LUNG MASS TECHNIQUE: THORACENTESIS W US. The procedure as well as the benefits and possible complications including infection, bleeding and pneumothorax were explained to the patient. Informed consent was obtained. The overlying skin was prepped and draped in the usual sterile fashion. Following local anesthetic application, a 5 Serbian catheter was placed into the left pleural cavity. 1280 cc of lor colored fluid was aspirated. A 100 mL sample was sent to the laboratory for analysis. COMPARISON: CT scan dated March 25, 2025. FINDINGS: Successful ultrasound-guided left thoracentesis. The patient tolerated the procedure well. US/Thoracentesis W US IMPRESSION: Successful ultrasound-guided left thoracentesis. The patient tolerated the pro cedure well. No immediate complication noted. Reading Location: [place] [address]
[2025-03-26 06:06] LABS: LDH 293 U/L (84-246)
[2025-03-26 06:09] LABS: AST(SGOT) 24 U/L (<=31); Alanine Aminotransfer ALT/SGPT 14 U/L (<=34); Albumin, Serum 3.0 g/dL (3.5-5.0); Alkaline Phosphatase 65 U/L (35-104); Anion Gap 11 (5-15); BUN 16 mg/dL (4-19); BUN/Creat Ratio 30.0 RATIO (10-20); Calcium,Total 8.9 mg/dL (7.6-11.0); Carbon Dioxide 20.0 mmol/L (21.0-32.0); Chloride 109 mmol/L (98-108); Estimated Creatinine Clearance 99.26 ml/min (50-250); Globulin 3.7 g/dL (2.2-4.2); Glucose 88 mg/dL (70-99); Potassium 4.1 mmol/L (3.3-5.1)
[2025-03-26] MEDS: Budesonide Respules 0.5 MG/2 ML AMPUL.NEB. INHALATION (07:51)
[2025-03-26 07:56] VITALS: PULSE 112; RESP 20; O2SAT 93
[2025-03-26 08:39] VITALS: BP 125/85; PULSE 116; RESP 16; TEMP 36.8; O2SAT 95
[2025-03-26] MEDS: Lidocaine 2% (20 ml mdv) 20 ML Vial INFILT (09:35)
--- NOTE | 2025-03-26 09:45 | FLU_PTH ---
PATIENT: PAYAM ADAN LOC: [facility] U#:[id number] AGE/SX: 59/F ROOM: [facility] RE03/25/[address]: Dr. Pal Newman MD : [id number] BED: 1 DIS: 03/26/2025 SPEC #: [id number] RECD: 03/26/25 10:00 STATUS: TIFFANIE STEWART #: [id number] ANA MARIA: 03/26/25 09:[address]: Pal Newman DEPT: CYTOLOGY RECD BY: Jarad Bhatti ENTERED: 03/26/25 13:17 SP TYPE: Fluid OTHR DR: MD Dr. Steven Dangelo MD Tissues: A - Pleural fluid, NOS Procedures: Special Stain Group II Surgery Specimen Level IV Cytospin Fluid HEADER OPERATION: Thoracentesis - left chest PRE-OP DIAGNOSIS: Pleural effusion TISSUE SUBMITTED: A- Thoracentesis fluid for cytology DIAGNOSIS CYTOLOGY A. Left pleural effusion, thoracentesis (cytospin, cellblock): - No malignant cells identified. - Reactive mesothelial cells, acute inflammation. CYTOLOGY STUDY Slides are reviewed. CYTOLOGY GROSS A. Received is 80 ml of red-cloudy fluid labeled with the patient's name and and designated per the requisition as Thoracentesis fluid. Submitted for cytology and cell block preparation. 03/26/2025 CPT: 55672,[id number]
--- NOTE | 2025-03-26 09:45 | RAD_ITS ---
PROCEDURE: CHEST INSP/EXP 2 VIEW 03/26/2025 REASON FOR EXAM: POST THORACENTESIS TECHNIQUE: Procedure Code: RADCXRINSPEXP Modality: DX Procedure: CHEST INSP/EXP 2 VIEW AP inspiration expiration views were obtained following the left thoracentesis. COMPARISON: March 11, 2025. FINDINGS: The patient is status post left thoracentesis. Residual pleural-parenchymal changes on the left side. No evidence of pneumothorax. RAD/Chest Insp/Exp 2 View IMPRESSION: Status post left thoracentesis. No evidence of pneumothorax. Residual pleural-parenchymal changes seen. Reading Location: [facility]
[2025-03-26 10:05] VITALS: BP 133/78; PULSE 129; RESP 18; O2SAT 95
[2025-03-26 10:06] VITALS: BP 129/88; PULSE 112; RESP 18; O2SAT 97
[2025-03-26 10:12] LABS: Cytology, Body Fluid / CSF SEE PATHOLOGY REPORT
[2025-03-26 10:53] LABS: Glucose, Body Fluid 91 mg/dL (Not Establ.)
[2025-03-26 11:02] LABS: Body Fluid Mononuclear WBC # 1.030 10^3/uL; Body Fluid Mononuclear WBC % 79.3 %; Body Fluid Polynuclear WBC # 0.269 10^3/uL; Body Fluid Polynuclear WBC % 20.7 %; Red Cell Count/Body Fluid 0.010 10^6/ul; White Blood Count/Body Fluid 1.299 10^3/uL
[2025-03-26 12:17] LABS: Appearance/Body Fluid SL CLDY; Auto B Fluid Analyzer BKGD Ct COUNTS W/IN LIMITS (W/IN LIMITS); Color/Body Fluid SLIGHTLY PINK; Source- Body Fluid THORACENTESIS
[2025-03-26 12:18] LABS: Neutrophil (Segs) 37 %
[2025-03-26 12:19] LABS: Body Fluid QC Type(s) BFQ2
[2025-03-26 14:10] VITALS: BP 108/68; PULSE 98; RESP 18; TEMP 36.8; O2SAT 96
--- NOTE | 2025-03-26 15:08 | DCINST_ITS ---
Discharge Instructions DC O2, CPAP, BIPAP needs Home O2 Discharge instructions: No Dressing / Incision Discharge Activity: Return to Normal Activity Dressing / Incision Call your doctor if you observe: Fever of 101 or Higher, Shortness of breath, Dizziness, Fainting spells, Swelling in the ankles, Chest pain and Increased palpitations (irregular heartbeat) Follow Up Care Test Results: Test results from this visit will be discussed in further detail at your follow- up appointment, if applicable. Discharge Plan Admission Admit Date/Time: 03/25/25 21:03 Attending Provider: Pal Newman Primary Care Provider: Steven Redman Consulting Providers: Darlin Garner Instructions Patient Instructions: KONSTANTIN RN Thoracentesis Dc Discharge Orders/Prescriptions Prescriptions: New levofloxacin 750 mg Tablet 750 mg PO DAILY 7 Days Qty: 7 0RF Continued estradiol 0.025 mg/24 hr patch weekly 1 patch topical QWEEK progesterone micronized 100 mg capsule 100 mg PO QHS Referrals / Follow Up: Yoni Moore DO [Med Staff - Active Staff, Pulmonary Medicine] - Within 1 Week Referral Note: Discussed with Dr. Moore, sean an KARENUS Steven Redman MD [Primary Care Provider, Family Practice] - Within 1 Week Disposition Disposition (needs filled in before D/C Order can be placed): Home, Self Care
--- NOTE | 2025-03-26 15:53 | CASEMGMT ---
Patient has order for discharge. RN CM in to discuss needs at discharge. Patient denies needs or help at discharge. Patient had no further questions or concerns.
--- NOTE | 2025-03-26 16:06 | PHA.DC.COU.R ---
Pharmacy [facility] has performed discharge medication counseling for this patient. The patient was counseled on the following discharge medications and changes in medications for homegoing review. - Levofloxacin 750 mg tablet The Reason for Use, instructions for use, and potential side effects were reviewed for all new medications. The patient's questions regarding all of their medications were answered. The patient was able to verbally demonstrate an understanding of their discharge medications. Medications at Discharge Home Medications estradiol 0.025 mg/24 hr weekly transdermal patch 1 patch topical QWEEK hormes 03/25/25 progesterone micronized 100 mg capsule 100 mg PO QHS hormones 03/25/25 levofloxacin 750 mg tablet 750 mg PO DAILY 7 days #7 tabs 03/26/25
--- NOTE | 2025-03-26 16:58 | PCM.DC.SUM ---
Providers Date of Admission: 03/25/25 Primary Care Physician: Dr. Steven Redman MD Reason For Visit: HILAR MASS, LARGE L PLEURAL EFFUSION, ? UTI Diagnosis Discharge Diagnosis (1) Pleural effusion on left: Status: Acute Code(s): J90 - Pleural effusion, not elsewhere classified Medications at Discharge Home Medications estradiol 0.025 mg/24 hr weekly transdermal patch 1 patch topical QWEEK hormes 03/25/25 progesterone micronized 100 mg capsule 100 mg PO QHS hormones 03/25/25 levofloxacin 750 mg tablet 750 mg PO DAILY 7 days #7 tabs 03/26/25 Hospital Course Operations None Procedures Thoracentesis Summary of Care Provided Minutes Spent on Discharge: 40 Hospital Course: Per HPI: The patient is a 59 y/o F w/ PMHx: Chronic normocytic anemia/iron deficiency anemia with history of menorrhagia who presents to the [facility] ED on 03/25/2025 with recent outpatient PCP evaluation secondary to ongoing decreased appetite with associated weight loss over the last several weeks as well as dyspnea with imaging obtained outpatient including 03/25/2025 CTPA with a left hilar mass with postobstructive pneumonitis and atelectasis of the left lower lobe due to a large left pleural effusion with previous to this chest CT 03/24/2025 performed without contrast with a moderate left pleural effusion with subtotal compressive atelectasis and or consolidation of the left lower lobe read as nonspecific but probably reactive mildly prominent mediastinal lymph nodes, underlying left lower lobe or left perihilar mass lesion cannot be excluded at that time with recommended follow-up with IV contrast. Patient now presenting to the ED per primary care recommendation to facilitate a more emergent IR biopsy/thoracentesis versus pulmonary bronch/biopsy. Patient reportedly has also been on 2 weeks of antibiotic therapy with no improvement in symptoms. She has a started approximately 1 month prior and she initially was treated with a Z-Blade and felt some improvement however her symptoms quickly returned with fever, night sweats, decreased appetite as well as dyspnea. She recently notes that she has been afebrile but still continues to have night sweats and dyspnea worse with exertion. She also has notable orthopnea and has to sleep on a specific side to be comfortable as well as a certain elevation. She denies any nausea or vomiting. Patient denies any tobacco use history herself but notes that up into her middle youth she was a secondhand tobacco exposure individual as her parents both smoked. Workup in the ED included T97.5, heart rate initially 141, BP 122/85, respiratory rate 24, 100% on room air with most recent repeat vitals T98.4, heart rate 108, BP 124/89, respiratory rate 26, 98% on room air, CBC with WBC 10.2, hemoglobin 0.7, MCV 94, platelet 475 with left shift, unremarkable coags besides PT 15.5, CMP with anion gap 16, BUN/creatinine 19/0.65, GFR 103, lactic acid 1.4, hepatic profile unremarkable, troponin less than 6, urinalysis with cloudy appearing urine, specific gravity 1.020, protein 30, ketone 150, occult blood 50, positive nitrite, leukocyte esterase 100 with finalization of UA pending including urine RBC/WBC/bacteria thus still uncertain if UTI however given current markers some concern as noted, urine culture pending per ED, blood culture x 2 pending per ED. In the ED patient ministered 1 L normal saline as well as Rocephin 2 g IV x 1. Hospital Course: 1. Dyspnea secondary to large left pleural effusion in the setting of a hilar mass?59-year-old female with no significant past medical history presents to the hospital with increasing shortness of breath and dyspnea on exertion. She was found to have a large pleural effusion on the left with a hilar mass. Unfortunately IR biopsy was not possible but they were able to drain over 1200 cc from her left lung, this is an exudative effusion and cultures are pending as is other lab work including cytology. I did discuss the case with pulmonology who is happy to see her in the outpatient setting to schedule an EBUS for biopsy of this hilar mass. In the meantime she is feeling better and breathing much better though she does have a little bit of pain after her thoracentesis though no pneumothorax on chest x-ray. I transitioned her to Levaquin for better lung coverage as her urine was negative for infection as she only had less than 25,000 CFU's of E. coli and she did have 2 courses of recent antibiotic treatment though neither appear to have been sufficient individually for pneumonia. Will continue with Levaquin for 7 days and have her follow-up with pulmonology as an outpatient. I discussed with her the possibility for discharge today versus staying 1 more day and she expressed understanding of the risks and benefits of going home and would like to go home today. We did discuss indications to return to the hospital including worsening chest pain and fevers and chills. I recommend she follow-up with her PCP in 3 to 5 days. Physical Exam Narrative General: Alert, Oriented x3, Cooperative, No apparent distress HEENT: Atraumatic, PERRLA, EOMI, Normocephalic Oral: Moist Mucosa Neck: Supple, No JVD Lungs: Diminished left greater than right, Normal air movement, No rhonchi, No wheeze, No rales Cardiovascular: Regular rate, Regular Rhythm, Normal S1, Normal S2, No murmurs Abdomen: Soft, Non Tender, Non-Distended, No Hepato-splenomegaly Extremities: No edema, Capillary Refill Less than 3 Seconds Skin: No rashes, No breakdown Musculoskeletal: No Tenderness to Palpation of Joints or Extremities Neurological: No focal neurological deficits, Motor Exam 5/5 strength throughout, Sensory exam intact to light touch and pain Psych/Mental Status: Normal Affect, Appropriate Weight / BMI Weight Weight: 130 lb 1.164 oz Body Mass Index (BMI) 22.3 ABG / Lab / Microbiology Data 03/26/25 05:14 03/26/25 05:14 Laboratory: Laboratory Results - last 24 hr 03/25/25 18:00: WBC 10.2, RBC 3.85 L, Hgb 11.7 L, Hct 36.2 L, MCV 94.0, MCH 30.4, MCHC 32.3, RDW Std Deviation 41.7, RDW Coeff of Prashant 12.0, Plt Count 475 H, MPV 8.9, Immature Gran % (Auto) 0.600, Neut % (Auto) 79.8 H, Lymph % (Auto) 10.3 L, [place] % (Auto) 8.4, Eos % (Auto) 0.6, Baso % (Auto) 0.3, Absolute Neuts (auto) 8.2 H, Absolute Lymphs (auto) 1.05, Nucleated RBC % 0, PT 15.5 H, INR 1.2, APTT 35.0, Sodium 139, Potassium 3.7, Chloride 101, Carbon Dioxide 22.2, Anion Gap 16 H, BUN 19, Creatinine 0.65 L, Estim Creat Clear Calc 82.46, Est GFR (MDRD) Non-Af 103, BUN/Creatinine Ratio 29.7 H, Glucose 94, Lactic Acid 1.4, Calcium 9.5, Total Bilirubin 0.33, AST 27, ALT 17, Alkaline Phosphatase 73, Troponin T High Sens < 6, Total Protein 7.9, Albumin 3.6, Globulin 4.3 H, Albumin/Globulin Ratio 0.8 L 03/25/25 18:13: Urine Color Yellow, Urine Clarity Cloudy, Urine pH 6.0, Ur Specific [place] 1.020, Urine Protein 30 H, Urine Glucose (UA) Normal, Urine Ketones 150 A*, Urine Occult Blood 50 H, Urine Nitrite Positive H, Urine Bilirubin Negative, Urine Urobilinogen Normal, Ur Leukocyte Esterase 100 H, Urine RBC 0-5 SEEN, Urine WBC 10-25 SEEN, Ur Squamous Epith Cells 0-5 SEEN, Calcium Oxalate Crystal 1+, Urine Bacteria 2+, Urine Mucus 0 SEEN 03/26/25 05:14: WBC 8.0, RBC 3.61 L, Hgb 10.9 L, Hct 33.7 L, MCV 93.4, MCH 30.2, MCHC 32.3, RDW Std Deviation 41.5, RDW Coeff of Prashant 12.0, Plt Count 428, MPV 8.6, Immature Gran % (Auto) 0.600, Neut % (Auto) 72.9 H, Lymph % (Auto) 14.0 L, [place] % (Auto) 10.5 H, Eos % (Auto) 1.6, Baso % (Auto) 0.4, Absolute Neuts (auto) 5.9, Absolute Lymphs (auto) 1.12, Nucleated RBC % 0, Sodium 141, Potassium 4.1, Chloride 109 H, Carbon Dioxide 20.0 L, Anion Gap 11, BUN 16, Creatinine 0.54 L, Estim Creat Clear Calc 99.26, Est GFR (MDRD) Non-Af 107, BUN/Creatinine Ratio 30.0 H, Glucose 88, Calcium 8.9, Total Bilirubin 0.24, AST 24, ALT 14, Alkaline Phosphatase 65, Lactate Dehydrogenase 293 H, Total Protein 6.7, Albumin 3.0 L, Globulin 3.7, Albumin/Globulin Ratio 0.8 L 03/26/25 09:40: Fluid Source THORACENTESIS, Fluid Color SLIGHTLY PINK, Fluid Appearance SL CLDY, Fluid WBC 1.299, Fluid RBC 0.010, Fluid Tot Cell Count 1.386 H, Fld Polynuclear WBCs # 0.269, Fld Polynuclear WBCs % 20.7, Fluid Mononuclear WBCs 1.030, Fld Mononuclear WBCs % 79.3, Fluid Neutrophils 37, Fluid Lymphocytes 47, Fluid Monocytes 3, Fld Mesothelial Cells 13, Fl Pathologist Comment May follow, Fluid Glucose 91, Fluid Total Protein 4.5, Fluid LDH 447, Fluid Comment 2 SEE COMMENT Microbiology: Microbiology 03/25/25 18:13 Urine, Clean Catch Urine Culture - Preliminary Presumptive E. coli 03/26/25 00:22 Sputum, Expectorated/Coughed Gram Stain - Final 03/26/25 00:03 Mucosa - Nasopharyngeal Respiratory Panel (PCR) - Final 03/25/25 23:57 Urine, Random Legionella Antigen - Final 03/25/25 23:57 Urine, Random Streptococcus pneumoniae Antigen (M - Final Radiography Diagnostic Testing: Radiology Impression Thoracentesis Ultrasound 03/26/25 06:00 IMPRESSION: Successful ultrasound-guided left thoracentesis. The patient tolerated the procedure well. No immediate complication noted. Reading Location: [facility]- Chest X-Ray 03/26/25 09:45 IMPRESSION: Status post left thoracentesis. No evidence of pneumothorax. Residual pleural-parenchymal changes seen. Reading Location: [facility]- D/C Instructions Call your doctor if you observe: Fever of 101 or Higher, Shortness of breath, Dizziness, Fainting spells, Swelling in the ankles, Chest pain and Increased palpitations (irregular heartbeat) DC O2, CPAP, BIPAP Needs Home O2 Discharge instructions: No Meaningful Use Info Meaningful Use Meaningful Use Diagnoses (Choose all that apply): None applicable Discharge Plan Admission Admit Date/Time: 03/25/25 21:03 Attending Provider: Pal Newman Primary Care Provider: Steven Redman Consulting Providers: Darlin Garner Instructions Patient Instructions: KONSTANTIN RN Thoracentesis Dc Discharge Orders/Prescriptions Prescriptions: New levofloxacin 750 mg Tablet 750 mg PO DAILY 7 Days Qty: 7 0RF Continued estradiol 0.025 mg/24 hr patch weekly 1 patch topical QWEEK progesterone micronized 100 mg capsule 100 mg PO QHS Referrals / Follow Up: Yoni Moore DO [Med Staff - Active Staff, Pulmonary Medicine] - Within 1 Week Referral Note: Discussed with sean [place], MD [Primary Care Provider, [facility]] - Within 1 Week Disposition Disposition (needs filled in before D/C Order can be placed): Home, Self Care Charges/Coding Visit Charges Inpatient E&M: 86517 Disch Hosp >30min
[2025-04-01 09:03] LABS: Pathologist Comment/Body Fluid Reviewed
[2025-04-01 11:08] LABS: pH, Body Fluid 11254 7.6 (Not Estab.)
== END 2025-03-26 16:32 | disposition home or self-care (01) ==
LOC: ED 18:22 → PCU 21:29
PROVIDERS: Admitting Provider Family Medicine; Emergency Provider Specialist/Technologist Athletic Trainer; PCP Family Medicine; Visit Provider Family Medicine
DX: J90 Pleural effusion, not elsewhere classified (principal); J98.11 Atelectasis; R06.02 Shortness of breath; D64.9 Anemia, unspecified; R53.83 Other fatigue; R91.8 Other nonspecific abnormal finding of lung field
CPT/HCPCS: 32555; 36415; 71046; 80053; 81001; 82150; 82945; 83605; 83615; 83986; 84155; 84157; 84484; 85025; 85610; 85730; 87040; 87070; 87075; 87086; 87088; 87186; 87205; 87449; 87633; 88108; 88305; 88313; 89050; 93005; 94640; 94668; 96361; 96365; 97802; 99221; 99285; A4216; G0378; J0696

== ENCOUNTER → 2025-03-25 | Outpatient (CLI) | payer OTHER, SELFPAY ==
--- NOTE | 2025-03-25 09:24 | CT_ITS ---
PROCEDURE: CTA CHEST W/WO CONTRAST 03/25/2025 REASON FOR EXAM: L PLEURAL EFFUSION AND+ D-DIMER TECHNIQUE: Procedure Code: [id number] Modality: CT Procedure: CTA CHEST W/WO CONTRAST Multiplanar Sagittal and Coronal images were obtained. 3D post processing was performed CONTRAST: Isovue 370 VOLUME: 75 mL One or more dose reduction techniques were used (e.g., Automated exposure control, adjustment of the mA and/or kV according to patient size, use of iterative reconstruction technique). RADIATION DOSE SUMMARY: CTDlvol: 5 mGy DLP: 186.01 mGycm COMPARISON: Prior study dated March 24, 2025. FINDINGS: Hardware: EKG electrodes. Lymph nodes: There is evidence of a left hilar mass measuring 2.4 cm by 2.5 cm. Large left pleural effusion with compressive atelectasis and postobstructive pneumonitis of the left lower lobe. A central left hilar carcinoma with postobstructive pneumonitis should be ruled out. The right lung is clear. The left upper lobe is well aerated. Heart: The heart is nonenlarged. No coronary artery calcification is seen. Thoracic Aorta: No thoracic aortic aneurysm or dissection. Pulmonary Vessels: The vessels are well opacified. No intraluminal filling defect is seen. Pleura: Large left pleural effusion. Upper Abdomen: Unremarkable Bones: Degenerative changes of the thoracic spine. CT/CTA Chest W/WO Contrast IMPRESSION: Findings in keeping with a left hilar mass with postobstructive pneumonitis and atelectasis of the left lower lobe due to a large left pleural effusion. Reading Location: [place] [id number]
== END | disposition home or self-care (01) ==
LOC: CT 09:16
PROVIDERS: PCP Family Medicine; Referring Provider Family Medicine; Visit Provider Family Medicine
DX: R79.89 Other specified abnormal findings of blood chemistry (principal)
CPT/HCPCS: 71275; Q9967

== ENCOUNTER → 2025-04-02 | Outpatient (CLI) | payer OTHER, SELFPAY ==
--- NOTE | 2025-04-02 16:47 | RAD_ITS ---
PROCEDURE: CHEST PA AND LATERAL 04/02/2025 REASON FOR EXAM: FLUID REMOVED FROM LEFT SIDE 1 WEEK AGO, PLEURAL EFFUSION TECHNIQUE: Procedure Code: RADCXR Modality: DX Procedure: CHEST PA AND LATERAL COMPARISON: Chest x-ray of 03/26/2025. RAD/Chest PA and Lateral IMPRESSION: A moderately large left pleural effusion is seen, increased since the prior sanam dy of 03/26/2025. Consider left thoracentesis if and as clinically appropriate. No significant right pleural effusion is seen. No pneumothorax is noted. Lungs otherwise appear clear of acute disease. The cardiomediastinal silhouette is likely unchanged; no cardiomegaly is identi fied. Mild thoracic spine degenerative changes are noted. Asymmetric right acromiocl avicular joint degenerative changes are again present. No acute osseous change is seen. Reading Location: [place] [id number]
== END | disposition home or self-care (01) ==
LOC: MTRAD 16:45
PROVIDERS: PCP Family Medicine; Referring Provider Family Medicine; Visit Provider Family Medicine
DX: J90 Pleural effusion, not elsewhere classified (principal)
CPT/HCPCS: 71046

== ENCOUNTER → 2025-04-06 | Outpatient (CLI) | payer OTHER, SELFPAY ==
--- NOTE | 2025-04-06 07:56 | US_ITS ---
PROCEDURE: THORACENTESIS W US 04/06/2025 REASON FOR EXAM: NODULE, PE Recurrent left pleural effusion. TECHNIQUE: THORACENTESIS W US. The procedure as well as the benefits and possible complications including infection, bleeding and pneumothorax were explained to the patient. Informed consent was obtained. The overlying skin was prepped and draped in the usual sterile fashion. Following local anesthetic application, a 5 [place] catheter was placed into the left pleural space. 1300 mL of dark lor colored fluid was aspirated. A 100 mL sample was sent to the laboratory. COMPARISON: March 26, 2025. FINDINGS: Successful left thoracentesis without immediate complication. The patient tolerated the procedure well. US/Thoracentesis W US IMPRESSION: Successful ultrasound-guided left thoracentesis. The patient tolerated the pro cedure well. No immediate complication is noted. Reading Location: [place] [address]
--- NOTE | 2025-04-06 08:45 | FLU_PTH ---
PATIENT: PAYAM ADAN LOC: [facility]#:[id number] AGE/SX: 59/F ROOM: RE04/06/[address]: Dr. Luis Kiser MD : 1965 BED: DIS: 04/06/2025 SPEC #: [id number] RECD: 04/06/25 10:18 STATUS: TIFFANIE REQ #: [id number] ANA MARIA: 04/06/25 08:[address]: Luis Kiser V DEPT: CYTOLOGY RECD BY: Caryn Gonzalez ENTERED: 04/06/25 13:56 SP TYPE: Fluid OTHR DR: MD Dr. Steven Lisa MD Tissues: THORACIC FLUID Procedures: Immunohistochemical Stains Special Stain Group II Surgery Specimen Level IV Cytospin Fluid IHC Stain ADDITIONAL HEADER OPERATION: Ultrasound guided left thoracentesis PRE-OP DIAGNOSIS: Pleural effusion TISSUE SUBMITTED: A- Thoracentesis fluid for cytology DIAGNOSIS CYTOLOGY A. Left pleural effusion, thoracentesis (cytospin, cellblock): - Few atypical cells present - see note. Note: IHCs performed. There is a single cluster of atypical cells in the cellblock which is positive for pankeratin, CK5/6, and p40, supporting a squamous origin. IHCs for CK7, CK20, Napsin A, TTF-1, Chromogranin and Synaptophysin are negative. Although the cytology is suspicious for malignancy, a definitive diagnosis cannot be rendered on the limited amount of atypical cells in this specimen. Recommend obtaining additional diagnostic material for further evaluation if feasible and clinically indicated. CYTOLOGY STUDY Slides are reviewed. All matched controls reacted appropriately. These tests were developed and their performance characteristics determined by [facility]. They may not have been cleared or approved by the U.S. Food and Drug Administration. The FDA has determined that such clearance or approval is not necessary. The above immunohistochemical markers and/or special?stains?have been reviewed by the Pathologist. CYTOLOGY GROSS A. Received is 75 ml of red-cloudy fluid labeled with the patient's name and and designated per the requisition as Thoracentesis fluid. Submitted for cytology and cell block preparation. Mr 04/06/2025 CPT: 77766,[id number],[id number]
[2025-04-06] MEDS: Lidocaine 2% (20 ml mdv) 20 ML Vial INFILT (08:50)
--- NOTE | 2025-04-06 08:53 | RAD_ITS ---
PROCEDURE: CHEST INSP/EXP 2 VIEW 04/06/2025 REASON FOR EXAM: POST THORA TECHNIQUE: Procedure Code: RADCXRINSPEXP Modality: DX Procedure: CHEST INSP/EXP 2 VIEW COMPARISON: April 02, 2025 FINDINGS: Right lung is clear. No pneumothorax or pleural effusion on the right. Pleural fluid volume on the left has decreased. Atelectasis and/or airspace disease in the lingula and left lower lobe is present along with a small volume of pleural fluid on the left. No pneumothorax is seen on the left. Heart is normal size. Mediastinal structures are unremarkable. Mild curvature thoracolumbar spine. RAD/Chest Insp/Exp 2 View IMPRESSION: Decreased pleural fluid volume on the left. No pneumothorax. Reading Location: [id number]
[2025-04-06 09:21] VITALS: BP 155/84; PULSE 122; RESP 18; O2SAT 98
[2025-04-06 09:22] VITALS: BP 135/78; PULSE 115; RESP 18; O2SAT 100
== END | disposition home or self-care (01) ==
PROVIDERS: PCP Family Medicine; Referring Provider Internal Medicine Pulmonary Disease; Visit Provider Internal Medicine Pulmonary Disease
DX: J90 Pleural effusion, not elsewhere classified (principal); R91.1 Solitary pulmonary nodule
CPT/HCPCS: 32555; 71046; 88108; 88305; 88313; 88341; 88342

== ENCOUNTER 2025-04-08 12:52 | Day surgery (SDC) | payer OTHER, SELFPAY ==
[2025-04-08] VITALS (12 sets, daily range): BP systolic 82–115; BP diastolic 66–93; PULSE 99–120; RESP 16–20; TEMP 36.2–37.2; O2SAT 92–100; BMI 21.2
--- NOTE | 2025-04-08 | FLU_PTH ---
PATIENT: PAYAM ADAN LOC: [facility] U#:[id number] AGE/SX: 59/F ROOM: RE04/08/[address]: Dr. Luis Kiser MD : 1965 BED: DIS: 04/08/2025 SPEC #: [id number] RECD: 04/08/25 16:06 STATUS: TIFFANIE PAT #: [id number] ANA MARIA: 04/08/25 00:[address]: Luis Kiser V DEPT: CYTOLOGY RECD BY: Caryn Gonzalez ENTERED: 04/10/25 12:03 SP TYPE: Fluid OTHR DR: Dr. Steven Redman MD Tissues: A - Bronchus of left lower lobe B - Bronchus of left lower lobe Procedures: Immunohistochemical Stains Special Stain Group II Special Stain Group I Surgery Specimen Level IV AFB Stain (control) GMS Stain (control) Cytospin Fluid Cytology Other IHC Stain ADDITIONAL HEADER OPERATION: Bronchoscopy biopsy, brushings PRE-OP DIAGNOSIS: Non-specific abnormal finding of lung field, pleural effusion, dyspnea TISSUE SUBMITTED: A- Left lower lobe, B- Left lower lobe DIAGNOSIS CYTOLOGY A. Left lower lobe, bronchoscopy (cytospin, cellblock, smear x3): - Malignant neoplasm consistent with poorly-differentiated squamous cell carcinoma - see Comment. - IHC positive for pankeratin (focal), CK5/6, p40; and negative for CK7, CK20, TTF-1, Synaptophysin, Chromogranin, and Napsin A support the diagnosis. - AFB and GMS special stains are negative for acid fast bacilli and fungal organisms, respectively. B. Left lower lobe, bronchoscopy (cytospin, cellblock): - No malignant cells identified. - AFB and GMS special stains are negative for acid fast bacilli and fungal organisms, respectively. COMMENT Corresponding case: [id number] CYTOLOGY STUDY Slides are reviewed. All matched controls reacted appropriately. These tests were developed and their performance characteristics determined by [facility]. They may not have been cleared or approved by the U.S. Food and Drug Administration. The FDA has determined that such clearance or approval is not necessary. The above immunohistochemical markers and/or special?stains have been reviewed by the Pathologist. CYTOLOGY GROSS A. Received is 1 brush with 3 ml of red-cloudy fluid and 3 smears labeled with the patient's name and and designated per the requisition as Left lower lobe fluid. Submitted for cytology and cell block preparation. B. Received is 40 ml of red-cloudy fluid labeled with the patient's name and and designated per the requisition as Left lower lobe. Submitted for cytology and cell block preparation. [place] 04/10/2025 CPT: 62481y2,[id number],[id number]
--- NOTE | 2025-04-08 | LUNB_PTH ---
PATIENT: PAYAM ADAN LOC: [facility] U#:[id number] AGE/SX: 59/F ROOM: RE04/08/[address]: Dr. Luis Kiser MD : 1965 BED: DIS: 04/08/2025 SPEC #: [id number] RECD: 04/08/25 16:06 STATUS: TIFFANIE JAMESIrene #: [id number] ANA MARIA: 04/08/25 00:[address]: Luis Kiser V DEPT: SURGICAL PATHOLOGY RECD BY: Jarad Bhatti ENTERED: 04/13/25 08:51 SP TYPE: LUNG BX OTHR DR: Dr. Steven Redman MD Tissues: A - Lung, NOS Procedures: Immunohistochemical Stains Surgery Specimen Level V IHC Stain ADDITIONAL HEADER OPERATION: Bronchoscopy (MAC), biopsy, brushings, BAL PRE-OP DIAGNOSIS: Non-specific abnormal finding of lung field, pleural effusion, dyspnea TISSUE SUBMITTED: A- Left lower lobe biopsy MICROSCOPIC DIAGNOSIS A. 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 - IHC positive for: pankeratin (patchy), CK5/6 (patchy), p40 (diffuse), CK7 (focal), Synaptophysin (patchy). - IHC negative for: CK20, TTF-1, Chromogranin, Napsin A. COMMENT Selected slides/images were reviewed in intradepartmental consultation with Dr Maikol Rodríguez (thoracic pathology division, [facility]). MICROSCOPIC DESCRIPTION Slides are reviewed. GROSS DESCRIPTION A. Received in formalin labeled with the patient's name and date of . Designated as left lower lobe BX is a 0.9 x 0.5 x 0.1 cm aggregate of hutson to red wispy tissue fragments. Entirely submitted in 2 cassettes. Note: This case corresponds with cytology case [id number]. [place] 04/10/2025 CPT:33997,[id number]
[2025-04-08] MEDS: Lactated Ringers 1,000 ML 15 ML IV (13:15)
--- OUTSIDE RECORDS SUMMARY | 2025-04-08 13:17 | XMS RPT_ITS | CCD ---
Author Organization [facility] Care Team Providers Care Scrap Preparer Name Role Phone Unavailable Primary Care Provider UnavailSteven Nagy MD Primary Care Provider STEVEN GILLETTE Primary Care Unavailable NORMA LERMA Attending Unavailable SIDNEY, NORMA Attending Unavailable NORMA LERMA Referring Unavailable NORMA LERMA Attending Unavailable Gilson Cisneros Referring Unavailable Gilson Cisneros Attending Unavailable Steven Gillette Primary Care Unavailable Bernard NUTRITION AIDES TEACHER, Skylar Referring Unavailable Bernard NUTRITION AIDES TEACHER, Skylar Attending Unavailable Steven Gillette Primary Care Unavailable Steven Gillette Primary Care Unavailable Darlin Garner Attending Unavailable Darlin Garner Admitting Unavailable Darlin Garner Consulting Unavailable Steven Gillette Referring Unavailable Steven Gillette Attending Unavailable Steven Gillette Primary Care Unavailable Medications Current Medications Medication Drug Class(es) Dates Sig (Normalized) Sig (Original) cholecalciferol 0.025 mg oral capsule (8 sources) Vitamin D Cholecalciferol, Vitamin D3, (VITAMIN D) 25 mcg (1,000 unit) cap Take 1,000 Units by mouth once daily. Active 168 hr estradiol 0.94910 mg/hr transdermal system (7 sources) Estrogen Start: [...] Night sweats; Translations: [Generalized hyperhidrosis] 10-25-2023 Episodic Pleurisy; pneumothorax; pulmonary collapse (1 source) Pleural effusion, not elsewhere classified; Translations: [Pleural effusion, not elsewhere classified] Onset: 03-25-2025 Episodic Residual codes; unclassified (1 source) Flushing; Translations: [Flushing] 11-19-2024 Episodic Residual codes; unclassified (1 source) Flushing; Translations: [Hot flashes] Onset: 11-19-2024 Episodic Unclassified (1 source) Cough, unspecified; Translations: [Cough, unspecified] Onset: 03-24-2025 Past or Other Problems Problem Classification Problem Date Documented Da te Episodic/Chronic Unclassified (1 source) Patient encounter status 11-19-2024 Results Test Name Value Interpretation Reference Range Facility CBC W/Diff, Automatedon 03-14 Absolute Lymph 1.12 X10 3/uL Normal 0.83-4.51 [facility] Comment on above: Performed By: #### M 100.638 #### [facility] [address] [place], [address] Absolute Neut 5.9 X10 3/uL Normal 2.0-7.7 [facility] Comment on above: Performed By: #### M 100.638 #### [facility] [address] [place], [address] Basophils/100 WBC (Bld) 0.4 % Normal 0-1 [facility] Comment on above: Performed By: #### M 100.638 #### [facility] [address] [place], [address] Eosinophils/100 WBC (Bld) 1.6 % Normal 0-5 [facility] Comment on above: Performed By: #### M 100.638 #### [facility] [address] [place], [address] Erythrocyte distribution width (RBC) [Ratio] 12.0 % Normal 11.6-14.6 [facility] Comment on above: Performed By: #### M 100.638 #### [facility] [address] [place], [address] Hematocrit (Bld) [Volume fraction] 33.7 % Low 37-47 [facility] Comment on above: Performed By: #### M 100.638 #### [facility] [address] [place], [address] Hemoglobin (Bld) [Mass/Vol] 10.9 g/dL Low 12.0-15.0 [facility] Comment on above: Performed By: #### M 100.638 #### [facility] [address] [place], [address] IG% 0.600 Normal 0.0-0.9 [facility] Comment on above: Result Comment: IG% - Immature Granulocytes (promyelocytes, myelocytes and metamyelocytes) > 1% indicates that a LEFT SHIFT is Present. Performed By: #### M 100.638 #### [facility] [address] [place], [address] Lymphocytes/100 WBC (Bld) 14.0 % Low 19-41 [facility] Comment on above: Performed By: #### M 100.638 #### [facility] [address] [place], [address] MCH (RBC) [Entitic mass] 30.2 pg Normal 27.0-32.0 [facility] Comment on above: Performed By: #### M 100.638 #### [facility] [address] [place], [address] MCHC (RBC) [Mass/Vol] 32.3 g/dL Normal 32-36 [facility] Comment on above: Performed By: #### M 100.638 #### [facility] [address] [place], [address] MCV (RBC) [Entitic vol] 93.4 fL Normal 81-99 [facility] Comment on above: Performed By: #### M 100.638 #### [facility] [address] [place], [address] Monocytes/100 WBC (Bld) 10.5 % High 0-10 [facility] Comment on above: Performed By: #### M 100.638 #### [facility] [address] [place], [address] Neutrophils/100 WBC (Bld) 72.9 % High 47-70 [facility] Comment on above: Performed By: #### M 100.638 #### [facility] [address] [place], [address] Nucleated RBC (Bld) [#/Vol] 0 10*3/uL Normal 0-5 [facility] Comment on above: Performed By: #### M 100.638 #### [facility] [address] [place], [address] Platelet mean volume (Bld) [Entitic vol] 8.6 fL Normal 6.2-12.0 [facility] Comment on above: Performed By: #### M 100.638 #### [facility] [address] [place], [address] Platelets (Bld) [#/Vol] 428 10*3/uL Normal 150-450 [facility] Comment on above: Performed By: #### M 100.638 #### [facility] [address] [place], [address] RBC (Bld) [#/Vol] 3.61 10*6/uL Low 4.2-5.4 [facility] Comment on above: Performed By: #### M 100.638 #### [facility] [address] [place], [address] RDW SD 41.5 fl Normal 35.1-43.9 [facility] Comment on above: Performed By: #### M 100.638 #### [facility] [address] [place], [address] WBC (Bld) [#/Vol] 8.0 10*3/uL Normal 4.4-11.0 [facility] Comment on above: Performed By: #### M 100.638 #### [facility] [address] [place], [address] LDHon 03-26-2025 LDH 293 U/L High 84-246 [facility] Comment on above: Performed By: #### M 100.638 #### [facility] [address] [place], [address] Legionella Antigen Urineon 05-26-2024 LEGU URINE, RANDOM Legionella Antigen result interpretation: L pneumo Ag Ur Ql Negative Presumptive negative for Legionella pneumophila serogroup 1 antigen in urine, suggesting no recent or current infection. Legionella Ag, Urine Negative (See interpretation below) Normal [facility] Comment on above: Performed By: #### M 300.4500, M300.4600 #### [facility] [address] [place], [address] RESPIRATORY PANEL MOLECULARo n 03-26-2025 RP PANEL Normal Reference Ran ge = Not Detected Resp path DNA+RNA Pnl Resp JACQUELINE+probe Nucleic acid amplification test method ADENOVIRUS Not Detected INFLUENZA A Not Detected INFLUENZA A (SUBTYPE H1) Not Detected INFLUENZA A (SUBTYPE H3) Not Detected INFLUENZA B Not Detected HUMAN METAPHNEUMO Not Detected PARAINFLUENZA 1 Not Detected PARAINFLUENZA 2 Not Detected PARAINFLUENZA 3 Not Detected PARAINFLUENZA 4 Not Detected RHINOVIRUS Not Detected RSV A Not Detected RSV B Not Detected Normal [facility] Comment on above: Performed By: #### M 100.638 #### [facility] [address] [place], [address] Strep pneumoniae Antig(UR,CS F)on 03-26-2025 STPAG URINE INTERPRETATION Strep pneumoniae Antig(UR,CSF) Negative Urine Presumptive negative for pneumococcal pneumonia, suggesting no current or recent pneumococcal infection. Infection due to S pneumoniae cannot be ruled out since the antigen present in the sample may be below the detection limit of the test. Strep pneumo Test Negative URINE (See interpretation below) Normal [facility] Comment on above: Performed By: #### M 300.4500, M300.4600 #### [facility] [address] [place], [address] CBC W/Diff, Automatedon 03-14 Absolute Lymph 1.05 X10 3/uL Normal 0.83-4.51 [facility] Comment on above: Performed By: #### M 300.4500, M300.4600 #### [facility] [address] [facility] [place], [address] Absolute Neut 8.2 X10 3/uL High 2.0-7.7 [facility] Comment on above: Performed By: #### M 300.4500, M300.4600 #### [facility] [address] [place], [address] Basophils/100 WBC (Bld) 0.3 % Normal 0-1 [facility] Comment on above: Performed By: #### M 300.4500, M300.4600 #### [facility] [address] [facility] [place], [address] Eosinophils/100 WBC (Bld) 0.6 % Normal 0-5 [facility] Comment on above: Performed By: #### M 300.4500, M300.4600 #### [place] [facility] [address] [place], [address] Erythrocyte distribution width (RBC) [Ratio] 12.0 % Normal 11.6-14.6 [facility] Comment on above: Performed By: #### M 300.4500, M300.4600 #### [facility] [address] [place], [address] Hematocrit (Bld) [Volume fraction] 36.2 % Low 37-47 [facility] Comment on above: Performed By: #### M 300.4500, M300.4600 #### [facility] [address] [place], [address] Hemoglobin (Bld) [Mass/Vol] 11.7 g/dL Low 12.0-15.0 [facility] Comment on above: Performed By: #### M 300.4500, M300.4600 #### [facility] [address] [place], [address] IG% 0.600 Normal 0.0-0.9 [facility] Comment on above: Result Comment: IG% - Immature Granulocytes (promyelocytes, myelocytes and metamyelocytes) > 1% indicates that a LEFT SHIFT is Present. Performed By: #### M 300.4500, M300.4600 #### [facility] [address] [place], [address] Lymphocytes/100 WBC (Bld) 10.3 % Low 19-41 [facility] Comment on above: Performed By: #### M 300.4500, M300.4600 #### [facility] [address] [place], [address] MCH (RBC) [Entitic mass] 30.4 pg Normal 27.0-32.0 [facility] Comment on above: Performed By: #### M 300.4500, M300.4600 #### [facility] [address] [place], [address] MCHC (RBC) [Mass/Vol] 32.3 g/dL Normal 32-36 [facility] Comment on above: Performed By: #### M 300.4500, M300.4600 #### [facility] [address] [place], [address] MCV (RBC) [Entitic vol] 94.0 fL Normal 81-99 [facility] Comment on above: Performed By: #### M 300.4500, M300.4600 #### [facility] [address] [place], [address] Monocytes/100 WBC (Bld) 8.4 % Normal 0-10 [facility] Comment on above: Performed By: #### M 300.4500, M300.4600 #### [facility] [address] [place], [address] Neutrophils/100 WBC (Bld) 79.8 % High 47-70 [facility] Comment on above: Performed By: #### M 300.4500, M300.4600 #### [facility] [address] [place], [address] Nucleated RBC (Bld) [#/Vol] 0 10*3/uL Normal 0-5 [facility] Comment on above: Performed By: #### M 300.4500, M300.4600 #### [facility] [address] [place], [address] Platelet mean volume (Bld) [Entitic vol] 8.9 fL Normal 6.2-12.0 [facility] Comment on above: Performed By: #### M 300.4500, M300.4600 #### [facility] [address] [place], [address] Platelets (Bld) [#/Vol] 475 10*3/uL High 150-450 [facility] Comment on above: Performed By: #### M 300.4500, M300.4600 #### [facility] [address] [place], [address] RBC (Bld) [#/Vol] 3.85 10*6/uL Low 4.2-5.4 [facility] Comment on above: Performed By: #### M 300.4500, M300.4600 #### [facility] [address] [place], [address] RDW SD 41.7 fl Normal 35.1-43.9 [facility] Comment on above: Performed By: #### M 300.4500, M300.4600 #### [facility] [address] [place], [address] WBC (Bld) [#/Vol] 10.2 10*3/uL Normal 4.4-11.0 [facility] Comment on above: Performed By: #### M 300.4500, M300.4600 #### [facility] [address] [place], [address] CTA Chest W/WO Contraston CTA Chest W/WO Contrast [facility] Imaging Services [address] [place] [address] CTA Chest W/WO Contrast MR#: [id number] Acct: [id number] Name: ARELIS ADAN Rep #: [id number] : 1965 F 59 From: Antwon garcia MD PCP: Dr. Steven Gillette MD Status: REG CLI Study: CTA Chest W/WO Contrast Date of Exam: 03/25/25 Exam# [id number] Ordering Dr: Gilson Cisneros MD PROCEDURE: CTA CHEST W/WO CONTRAST 03/25/2025 REASON FOR EXAM: L PLEURAL EFFUSION AND+ D-DIMER TECHNIQUE: Procedure Code: [id number] Modality: CT Procedure: CTA CHEST W/WO CONTRAST Multiplanar Sagittal and Coronal images were obtained. 3D post processing was performed CONTRAST: Isovue 370 VOLUME: 75 mL One or more dose reduction techniques were used (e.g., Automated exposure control, adjustment of the mA and/or kV according to patient size, use of iterative reconstruction technique). RADIATION DOSE SUMMARY: CTDlvol: 5 mGy DLP: 186.01 mGycm COMPARISON: Prior study dated March 24, 2025. FINDINGS: Hardware: EKG electrodes. Lymph nodes: There is evidence of a left hilar mass measuring 2.4 cm by 2.5 cm. Large left pleural effusion with compressive atelectasis and postobstructive pneumonitis of the left lower lobe. A central left hilar carcinoma with postobstructive pneumonitis should be ruled out. The right lung is clear. The left upper lobe is well aerated. Heart: The heart is nonenlarged. No coronary artery calcification is seen. Thoracic Aorta: No thoracic aortic aneurysm or dissection. Pulmonary Vessels: The vessels are well opacified. No intraluminal filling defect is seen. Pleura: Large left pleural effusion. Upper Abdomen: Unremarkable Bones: Degenerative changes of the thoracic spine. CT/CTA Chest W/WO Contrast IMPRESSION: Findings in keeping with a left hilar mass with postobstructive pneumonitis and atelectasis of the left lower lobe due to a large left pleural effusion. Reading Location: [place] [address] CC: Dr. Gilson Cisneros MD; Dr. Steven Gillette MD Production Control Analyst: Signed Normal [facility] Comprehensive Metabolic Prof laon 03-25-2025 Albumin [Mass/Vol] 3.6 g/dL Normal 3.5-5.0 [facility] Comment on above: Performed By: #### M 300.4500, M300.4600 #### [facility] [address] [place], [place], [address] Albumin/Globulin [Mass ratio] 0.8 {ratio} Low 0.9-2.4 [facility] Comment on above: Performed By: #### M 300.4500, M300.4600 #### [facility] [address] [place], [address] ALK PHOS 73 U/L Normal 35-104 [facility] Comment on above: Performed By: #### M 300.4500, M300.4600 #### [facility] [address] [place], [address] ALT [Catalytic activity/Vol] 17 U/L Normal <=34 [facility] Comment on above: Performed By: #### M 300.4500, M300.4600 #### [facility] [address] [place], [address] AST [Catalytic activity/Vol] 27 U/L Normal <=31 [facility] Comment on above: Performed By: #### M 300.4500, M300.4600 #### [facility] [address] [place], [address] Bilirubin [Mass/Vol] 0.33 mg/dL Normal 0.00-1.30 [facility] Comment on above: Performed By: #### M 300.4500, M300.4600 #### [facility] [address] [place], [address] BUN/CRE 29.7 RATIO High 10-20 [facility] Comment on above: Performed By: #### M 300.4500, M300.4600 #### [facility] [address] [place], [address] Calcium [Mass/Vol] 9.5 mg/dL Normal 7.6-11.0 [facility] Comment on above: Performed By: #### M 300.4500, M300.4600 #### [facility] [address] [place], [address] Chloride [Moles/Vol] 101 mmol/L Normal 98-108 [facility] Comment on above: Performed By: #### M 300.4500, M300.4600 #### [facility] [address] [place], [address] CO2 [Moles/Vol] 22.2 mmol/L Normal 21.0-32.0 [facility] Comment on above: Performed By: #### M 300.4500, M300.4600 #### [facility] [address] [place], [address] Creatinine [Mass/Vol] 0.65 mg/dL Low 0.70-1.20 [facility] Comment on above: Performed By: #### M 300.4500, M300.4600 #### [facility] [address] [place], [address] ECRCL 82.46 ml/min Normal 50-250 [facility] Comment on above: Performed By: #### M 300.4500, M300.4600 #### [facility] [address] [place], [address] GAP 16 High 5-15 [facility] Comment on above: Performed By: #### M 300.4500, M300.4600 #### [facility] [address] [place], [address] GFR/1.73 sq M.predicted among non-blacks MDRD (S/P/Bld) [Vol rate/Area] 103 mL/min/{1.73_m2} Normal >60 [facility] Comment on above: Result Comment: mL/m in/1.73m2 CKD-EPI Creatinine Equation (2020) Performed By: #### M 300.4500, M300.4600 #### [facility] [address] [place], [address] Globulin (S) [Mass/Vol] 4.3 g/dL High 2.2-4.2 [facility] Comment on above: Performed By: #### M 300.4500, M300.4600 #### [facility] [address] [place], [address] Glucose [Mass/Vol] 94 mg/dL Normal 70-99 [facility] Comment on above: Performed By: #### M 300.4500, M300.4600 #### [facility] [address] [place], [address] Potassium [Moles/Vol] 3.7 mmol/L Normal 3.3-5.1 [facility] Comment on above: Performed By: #### M 300.4500, M300.4600 #### [facility] [address] [place], [address] Sodium [Moles/Vol] 139 mmol/L Normal 133-145 [facility] Comment on above: Performed By: #### M 300.4500, M300.4600 #### [facility] [address] [place], [address] T PROT 7.9 g/dL Normal 5.9-8.4 [facility] Comment on above: Performed By: #### M 300.4500, M300.4600 #### [facility] [address] [place], [address] Urea nitrogen [Mass/Vol] 19 mg/dL Normal 4-19 [facility] Comment on above: Performed By: #### M 300.4500, M300.4600 #### [facility] [address] [place], [address] Emergency Department Summary on 03-25-2025 Emergency Department Summary [facility] Medical Records Department [address] [place] [address] Emergency Department Summary 03/25/25 MR#: [id number] Acct: [id number] Name: ARELIS ADAN Rep #: [id number] : 1965 59 From: Cherise Lala DO PCP: Dr. Steven Gillette MD Status:REG ER Location: ED HPI History of Present Illness Chief Complaint: Shortness of Breath Narrative Narrative: Patient was seen and examined after presenting to ED for admission as she has a new hilar mass. I received a phone call from her PCP who saw her today get a CT angio of her chest concern for PE turn s out she has pleural effusion with a hilar mass that is positive with no postobstructive issue and complication patient states that she has not had an appetite for few weeks now has been losing weight because of it. Of note her PCP has been treating her for pneumonia for a couple weeks as well. PFSH PFS Medical History Iron deficiency anemia Chronic anemia Medical History no medical history Home Medications ???Medication ???Instructions ???Recorded ???Last Taken ???Type estradiol 0.025 mg/24 hr weekly 1 patch topical QWEEK 03/25/25 Unk nown History transdermal patch progesterone micronized 100 mg 100 mg PO QHS 03/25/25 Unknown His tory capsule Allergy/AdvReac Type Severity Reaction Status Date / Time No Known Allergies Allergy Verified 03/25/25 17:45 Family History Father CAD (coronary artery disease) Heart disease Hypertension Myocardial infarction Family History no significant family his Surgical History S/P S/P breast lumpectomy Surgical History no surgical history Social History household members: spouse Smoking Status: Never smoker alcohol intake: never substance use type: does not use ROS ROS ED ROS Narrative Pertinent Positives: Shortness of breath decreased appetite weight loss fevers Pertinent Negatives: Chest pain pressure history of DVT or PE vomiting diarrhea The remainder of review of systems negative unless otherwise stated in the HPI above. Systems reviewed including constitutional, psychiatric, cardiovascular, respiratory, integument, HENT, gastrointestinal. EXAM Physical Exam Narrative Exam Narrative: Patient is afebrile but she is tachycardic and tachypneic. She is oxygenating well on room air however her blood pressure is otherwise appropriate her abdomen is soft nontender nondistended she has intact and equal MSPs in her extremities no lower extremity edema or calf tenderness no palpable pulsatile abdominal mass Const Vital Signs: 03/25/25 17:44 03/25/25 17:45 03/25/25 17:47 Temperature 97.5 F L 97.5 F L Temperature Source Oral Oral Pulse Rate 141 H 139 H Respiratory Rate 24 H 24 H Respiratory Effort Respiratory Depth Respiratory Pattern Blood Pressure 122/85 H 124/85 H 122/85 H Blood Pressure Mean 97 98 97 Pulse Ox 99 100 98 Oxygen Delivery Method Room Air Room Air Fraction of Inspired Oxygen (FIO2) 03/25/25 17:54 03/25/25 18:02 03/25/25 18:35 Temperature 98.1 F Temperature Source Oral Pulse Rate 113 H Respiratory Rate 24 H Respiratory Effort Short of Breath Respiratory Depth Normal Respiratory Pattern Normal Blood Pressure 122/78 H Blood Pressure Mean 92 Pulse Ox 98 Oxygen Delivery Method Room Air Room Air Room Air Fraction of Inspired Oxygen (FIO2) 99 03/25/25 19:24 03/25/25 20:29 Temperature 97.5 F L 98.4 F Temperature Source Oral Pulse Rate 112 H 108 H Respiratory Rate 24 H 26 H Respiratory Effort Respiratory Depth Respiratory Pattern Blood Pressure 116/80 124/89 H Blood Pressure Mean 92 100 Pulse Ox 97 98 Oxygen Delivery Method Room Air Fraction of Inspired Oxygen (FIO2) MDM MDM MDM Narrative Medical decision making narrative: Nursing notes, triage notes, available previous documentation, and vital signs were reviewed. Any discrepancies noted were addressed. Differential Diagnoses: Patient does not have a PE considering her CT angio of the chest earlier today seems like this is most likely malignancy causing a pleural effusion requiring biopsy of some sort Interventions: Antibiotics given: Ceftriaxone Fluids Given: 1 L normal saline Labs Reviewed: No leukocytosis leukopenia or significant anemia does have a slight thrombocytosis of 475 no coagulopathy no electrolyte abnormality or renal insufficiency lactic acid is only 1.4 no transaminitis troponin was less than 6. Urine is showing 100 leukocyte esterase (more content not included)... Normal [facility] H AND P Exam - [facility] 03-25-2025 H&P Exam - Hospitalist [facility] Medical Records Department [address] [place] [address] H P Exam - Hospitalist 03/25/252057 MR#: [id number] Acct: [id number] Name: ARELIS ADAN Rep #: [id number] : 1965 59 From: Darlin Garner MD PCP: Dr. Steven Gillette MD Status:ADM TOMMY Location: [place] [id number] HPI - General General Date of Admission: 03/25/25 Date of Service: 03/25/25 Chief Complaint: Dyspnea, recent hilar mass dx w/ pleural effusion. HPI Narrative The patient is a 59 y/o F w/ PMHx: Chronic normocytic anemia/iron deficiency anemia with history of menorrhagia who presents to the [facility] ED on 03/25/2025 with recent outpatient PCP evaluation secondary to ongoing decreased appetite with associated weight loss over the last several weeks as well as dyspnea with imaging obtained outpatient including 03/25/2025 CTPA with a left hilar mass with postobstructive pneumonitis and atelectasis of the left lower lobe due to a large left pleural effusion with previous to this chest CT 03/24/2025 performed without contrast with a moderate left pleural effusion with subtotal compressive atelectasis and or consolidation of the left lower lobe read as nonspecific but probably reactive mildly prominent mediastinal lymph nodes, underlying left lower lobe or left perihilar mass lesion cannot be excluded at that time with recommended follow-up with IV contrast. Patient now presenting to the ED per primary care recommendation to facilitate a more emergent IR biopsy/thoracentesis versus pulmonary bronch/biopsy. Patient reportedly has also been on 2 weeks of antibiotic therapy with no improvement in symptoms. She has a started approximately 1 month prior and she initially was treated with a Z-Blade and felt some improvement however her symptoms quickly returned with fever, night sweats, decreased appetite as well as dyspnea. She recently notes that she has been afebrile but still continues to have night sweats and dyspnea worse with exertion. She also has notable orthopnea and has to sleep on a specific side to be comfortable as well as a certain elevation. She denies any nausea or vomiting. Patient denies any tobacco use history herself but notes that up into her middle youth she was a secondhand tobacco exposure individual as her parents both smoked. Workup in the ED included T97.5, heart rate initially 141, BP 122/85, respiratory rate 24, 100% on room air with most recent repeat vitals T98.4, heart rate 108, BP 124/89, respiratory rate 26, 98% on room air, CBC with WBC 10.2, hemoglobin 0.7, MCV 94, platelet 475 with left shift, unremarkable coags besides PT 15.5, CMP with anion gap 16, BUN/creatinine 19/0.65, GFR 103, lactic acid 1.4, hepatic profile unremarkable, troponin less than 6, urinalysis with cloudy appearing urine, specific gravity 1.020, protein 30, ketone 150, occult blood 50, positive nitrite, leukocyte esterase 100 with finalization of UA pending including urine RBC/WBC/bacteria thus still uncertain if UTI however given current markers some concern as noted, urine culture pending per ED, blood culture x 2 pending per ED. In the ED patient ministered 1 L normal saline as well as Rocephin 2 g IV x 1. PFSH Medical History Iron deficiency anemia Chronic anemia Medical History no medical history Home Medications ???Medication ???Instructions ???Recorded ???Last Taken ???Type estradiol 0.025 mg/24 hr weekly 1 patch topical QWEEK 03/25/25 Unk nown History transdermal patch progesterone micronized 100 mg 100 mg PO QHS 03/25/25 Unknown His tory capsule Allergy/AdvReac Type Severity Reaction Status Date / Time No Known Allergies Allergy Verified 03/25/25 17:45 Family History Father CAD (coronary artery disease) Heart disease Hypertension Myocardial infarction Mother PAF (paroxysmal atrial fibrillation) Family History no significant family his Surgical History S/P S/P breast lumpectomy Surgical History no surgical history Social History (Updated 03/25/25 @ 21:[address] Darlin Garner MD) household members: spouse Smoking Status: Never smoker second hand exposure: Yes alcohol intake: never substance use type: does not use ROS ROS Narrative Admission Review of Systems: CONSTITUTIONAL: No fever, chills, + weight loss, weakness or fatigue. Previously had fevers when started 1 month prior, since has resolved but ongoing night sweats as noted. HEENT: Eyes: No visual loss, blurred vision, double vision or yellow sclerae. Ears, Nose, Throat: No hearing loss, sneezing, congestion, runny nose or sore throat. SKIN: No rash or itching, lesions, wounds. CARDIOVASCULAR: + Tachycardia/racing (more content not included)... Normal [facility] L501.4021on 03-25-2025 Trop T High Sen < 6 Normal <=14 [facility] Comment on above: Performed By: #### L 501.4021 #### [facility] [address] [place], [address] Lactic Acidon 03-25-2025 Lactate [Moles/Vol] 1.4 mmol/L Normal 0.0-2.0 [facility] Comment on above: Order Comment: Y Performed By: #### M 300.4500, M300.4600 #### [facility] [address] [place], [address] Partial Thromboplast Timeon 03-25-2025 aPTT Coag (Bld) [Time] 35.0 s Normal 24.1-36.2 [facility] Comment on above: Performed By: #### M 300.4500, M300.4600 #### [facility] [address] [place], [address] Prothrombin Time w/INRon INR Coag (PPP) [Relative time] 1.2 {INR} Normal [facility] Comment on above: Performed By: #### M 300.4500, M300.4600 #### [facility] [address] [place], [address] PT Coag (PPP) [Time] 15.5 s High 11.7-14.9 [facility] Comment on above: Performed By: #### M 300.4500, M300.4600 #### [facility] [address] [place], [address] Urinalysis, Completeon 03-25 BACTERIA 2+ /hpf Normal None Seen [facility] Comment on above: Order Comment: CLEAN CATCH Performed By: #### M 100.638 #### [facility] [address] [place], [address] CA OX CRYSTAL 1+ /hpf Normal [facility] Comment on above: Order Comment: CLEAN CATCH Performed By: #### M 100.638 #### [facility] [address] [place], [address] RBC 0-5 SEEN Normal 0-5 [facility] Comment on above: Order Comment: CLEAN CATCH Performed By: #### M 100.638 #### [facility] [address] [place], [address] EPI,SQUAMOUS 0-5 SEEN Normal 5-10 [facility] Comment on above: Order Comment: CLEAN CATCH Performed By: #### M 100.638 #### [facility] [address] [place], [address] WBC 10-25 SEEN Normal 0-5 [facility] Comment on above: Order Comment: CLEAN CATCH Performed By: #### M 100.638 #### [facility] [address] [place], [address] Mucus Ql (Urine sed) 0 SEEN Normal [facility] Comment on above: Order Comment: CLEAN CATCH Performed By: #### M 100.638 #### [facility] [address] [place], [address] CBC W/Diff, Automated03-14 Absolute Lymph 1.13 X10 3/uL Normal 0.83-4.51 [facility] Comment on above: Order Comment: PER I NTERFACONRAD COMMENT-FIBRIN DDIMOrder Date: 03/24/25Order Info: 0184-1 - CBCD Performed By: #### M 300.4300, M300.1550 #### [facility] [address] [place], [address] Absolute Neut 8.0 X10 3/uL High 2.0-7.7 [facility] Comment on above: Order Comment: PER I NTERFACE COMMENT-FIBRIN DDIMOrder Date: 03/24/25Order Info: 183- - CBCD Performed By: #### M 300.4500, M300.4600 #### [facility] [address] [place], [address] Basophils/100 WBC (Bld) 0.3 % Normal 0-1 [facility] Comment on above: Order Comment: PER I NTERFACE COMMENT-FIBRIN DDIMOrder Date: 03/24/25Order Info: 183- - CBCD Performed By: #### M 300.4500, M300.4600 #### [facility] [address] [place], [address] Eosinophils/100 WBC (Bld) 0.7 % Normal 0-5 [facility] Comment on above: Order Comment: [facility] COM[facility]-FIBRIN DDIMOrder Date: 03/24/25Order Info: 183- - CBCD Performed By: #### M 300.4500, M300.4600 #### [facility] [address] [place], [address] Erythrocyte distribution width (RBC) [Ratio] 11.9 % Normal 11.6-14.6 [facility] Comment on above: Order Comment: PER NTERCONRAD COMMENT-FIBRIN DDIMOrder Date: 03/24/25Order Info: 183- - CBCD Performed By: #### M 300.4500, M300.4600 #### [facility] [address] [place], [address] Hematocrit (Bld) [Volume fraction] 36.6 % Low 37-47 [facility] Comment on above: Order Comment: PER NTERCE COMMENT-FIBRIN DDIMOrder Date: 03/24/25Order Info: 183- - CBCD Performed By: #### M 300.4500, M300.4600 #### [facility] [address] [place], [address] Hemoglobin (Bld) [Mass/Vol] 11.9 g/dL Low 12.0-15.0 [facility] Comment on above: Order Comment: PER Emily WATSON COMMENT-FIBRIN DDIMOrder Date: 03/24/25Order Info: 018- - CBCD Performed By: #### M 300.4500, M300.4600 #### [facility] [address] [place], [address] IG% 0.400 Normal 0.0-0.9 [facility] Comment on above: Order Comment: PER Emily RUSHERRUSLAN COMMENT-FIBRIN DDIMOrder Date: 03/24/25Order Info: 018- - CBCD Result Comment: IG% - Immature Granulocytes (promyelocytes, myelocytes and metamyelocytes) > 1% indicates that a LEFT SHIFT is Present. Performed By: #### M 300.4500, M300.4600 #### [facility] [address] [place], [address] Lymphocytes/100 WBC (Bld) 11.2 % Low 19-41 [facility] Comment on above: Order Comment: PER Emily WATSON COMMENT-FIBRIN DDIMOrder Date: 03/24/25Order Info: 018- - CBCD Performed By: #### M 300.4500, M300.4600 #### [facility] [address] [place], [address] MCH (RBC) [Entitic mass] 30.3 pg Normal 27.0-32.0 [facility] Comment on above: Order Comment: PER Emily WATSON COMMENT-FIBRIN DDIMOrder Date: 03/24/25Order Info: 018- - CBCD Performed By: #### M 300.4500, M300.4600 #### [facility] [address] [place], [address] MCHC (RBC) [Mass/Vol] 32.5 g/dL Normal 32-36 [facility] Comment on above: Order Comment: PER I NTERRUSLAN COMMENT-FIBRIN DDIMOrder Date: 03/24/25Order Info: 183- - CBCD Performed By: #### M 300.4500, M300.4600 #### [facility] [address] [place], [address] MCV (RBC) [Entitic vol] 93.1 fL Normal 81-99 [facility] Comment on above: Order Comment: PER Emily NTERRUSLAN COMMENT-FIBRIN DDIMOrder Date: 03/24/25Order Info: 183- - CBCD Performed By: #### M 300.4500, M300.4600 #### [facility] [address] [place], [address] Monocytes/100 WBC (Bld) 8.7 % Normal 0-10 [facility] Comment on above: Order Comment: PER Emily NTERRUSLAN COMMENT-FIBRIN DDIMOrder Date: 03/24/25Order Info: 183- - CBCD Performed By: #### M 300.4500, M300.4600 #### [facility] [address] [place], [address] Neutrophils/100 WBC (Bld) 78.7 % High 47-70 [facility] Comment on above: Order Comment: PER Emily WATSON COMMENT-FIBRIN DDIMOrder Date: 03/24/25Order Info: 018- - CBCD Performed By: #### M 300.4500, M300.4600 #### [facility] [address] [place], [address] Nucleated RBC (Bld) [#/Vol] 0 10*3/uL Normal 0-5 [facility] Comment on above: Order Comment: PER Emily WATSON COMMENT-FIBRIN DDIMOrder Date: 03/24/25Order Info: 018- - CBCD Performed By: #### M 300.4500, M300.4600 #### [facility] [address] [place], [address] Platelet mean volume (Bld) [Entitic vol] 8.7 fL Normal 6.2-12.0 [facility] Comment on above: Order Comment: PER Emily WATSON COMMENT-FIBRIN DDIMOrder Date: 03/24/25Order Info: 183- - CBCD Performed By: #### M 300.4500, M300.4600 #### [facility] [address] [place], [address] Platelets (Bld) [#/Vol] 462 10*3/uL High 150-450 [facility] Comment on above: Order Comment: PER Emily RUSHERCONRAD COMMENT-FIBRIN DDIMOrder Date: 03/24/25Order Info: 183- - CBCD Performed By: #### M 300.4500, M300.4600 #### [facility] [address] [place], [address] RBC (Bld) [#/Vol] 3.93 10*6/uL Low 4.2-5.4 [facility] Comment on above: Order Comment: PER Emily WATSON COMMENT-FIBRIN DDIMOrder Date: 03/24/25Order Info: 183- - CBCD Performed By: #### M 300.4500, M300.4600 #### [facility] [address] [place], [address] RDW SD 41.1 fl Normal 35.1-43.9 [facility] Comment on above: Order Comment: PER Emily WATSON COMMENT-FIBRIN DDIMOrder Date: 03/24/25Order Info: 018- - CBCD Performed By: #### M 300.4500, M300.4600 #### [facility] [address] [place], [address] WBC (Bld) [#/Vol] 10.1 10*3/uL Normal 4.4-11.0 [facility] Comment on above: Order Comment: PER Emily WATSON COMMENT-FIBRIN DDIMOrder Date: 03/24/25Order Info: 018-1 - CBCD Performed By: #### M 300.4500, M300.4600 #### [facility] [address] [place], [address] CRPon 03-24-2025 C-REACTIVE PROT 125.00 mg/L High 0.0-3.0 [facility] Comment on above: Order Comment: PER I NTERFACE COMMENT-FIBRIN DDIMOrder Date: 03/24/25Order Info: 0786-1 - CMPOrder Info: [id number] - CRPOrder Info: [id number] - RA Performed By: #### M 300.4500, M300.4600 #### [facility] [address] [place], [address] Chest without Contraston Chest without Contrast [facility] Imaging Services [address], [place] [address] Chest without Contrast MR#: [id number] Acct: [id number] Name: ARELIS ADAN Rep #: [id number] : 1965 F 59 From: Abrahan Fernandez MD PCP: Dr. Steven Gillette MD Status: REG CLI Study: Chest without Contrast Date of Exam: 03/24/25 Exam# [id number] Ordering Dr: Skylar Wagner NUTRITION AIDES TEACHER NUTRITION AIDES TEACHER-C PROCEDURE: CT CHEST WITHOUT CONTRAST 03/24/2025 REASON FOR EXAM: EFFUSION TECHNIQUE: Chest CT without contrast. Coronal and Sagittal reconstruction series were provided. One or more dose reduction techniques were used (e.g., Automated exposure control, adjustment of the mA and/or kV according to patient size, use of iterative reconstruction technique RADIATION DOSE SUMMARY: CTDlvol: 7.27 mGy DLP: 268.85 mGycm COMPARISON: Chest x-ray 03/11/2025. FINDINGS: Moderate left pleural effusion with associated subtotal compressive atelectasis and/or consolidation of the left lower lobe. Underlying mass lesion can not be excluded on this exam. The aerated left upper lobe and the right lung are clear. No pneumothorax. Opacified the left lower lobe bronchial airways. Increased number of mildly prominent mediastinal lymph nodes, nonspecific but may be reactive. Evaluation of the may is limited without IV contrast. No enlarged axillary lymph nodes. Normal heart size. No significant pericardial effusion. No coronary artery calcifications. Normal caliber of the central pulmonary arterial vessels and the thoracic aorta. No significant abnormality visualized in the partially included upper abdomen. Simple appearing periportal hepatic cyst in the caudate lobe of the liver. No acute or aggressive osseous abnormality. Minimal degenerative changes of the spine. CT/Chest without Contrast IMPRESSION: Moderate left pleural effusion with subtotal compressive atelectasis and/or consolidation of the left lower lobe. Nonspecific but probable reactive mildly prominent mediastinal lymph nodes. An underlying left lower lobe or left perihilar mass lesion cannot be excluded on this exam. Any follow-up CTs are recommended to be performed with intravenous contrast. Reading Location: [facility] [place] CC: MICHAEL Wagner; Dr. Steven Gillette MD Production Control Analyst: Signed Normal [facility] Comprehensive Metabolic Prof ilon 03-24-2025 Albumin [Mass/Vol] 3.6 g/dL Normal 3.5-5.0 [facility] Comment on above: Order Comment: PER I NTERFACE COMMENT-FIBRIN DDIMOrder Date: 03/24/25Order Info: 0786-1 - CMPOrder Info: [id number] - CRPOrder Info: [id number] - RA Performed By: #### M 300.4500, M300.4600 #### [facility] [address] [place], [address] Albumin/Globulin [Mass ratio] 0.9 {ratio} Normal 0.9-2.4 [facility] Comment on above: Order Comment: PER I NTERFACE COMMENT-FIBRIN DDIMOrder Date: 03/24/25Order Info: 0786-1 - CMPOrder Info: [id number] - CRPOrder Info: [id number] - RA Performed By: #### M 300.4500, M300.4600 #### [facility] [address] [place], [address] ALK PHOS 69 U/L Normal 35-104 [facility] Comment on above: Order Comment: PER I NTERFACE COMMENT-FIBRIN DDIMOrder Date: 03/24/25Order Info: 86-1 - CMPOrder Info: [id number] - CRPOrder Info: [id number] - RA Performed By: #### M 300.4500, M300.4600 #### [facility] [address] [place], [address] ALT [Catalytic activity/Vol] 18 U/L Normal <=34 [facility] Comment on above: Order Comment: PER I NTERFACONRAD COMMENT-FIBRIN DDIMOrder Date: 03/24/25Order Info: 785- - CMPOrder Info: [id number] - CRPOrder Info: [id number] - RA Performed By: #### M 300.4500, M300.4600 #### [facility] [address] [place], [place], [address] AST [Catalytic activity/Vol] 29 U/L Normal <=31 [facility] Comment on above: Order Comment: PER I NTERRUSLAN COMMENT-FIBRIN DDIMOrder Date: 03/24/25Order Info: 07- - CMPOrder Info: [id number] - CRPOrder Info: [id number] - RA Performed By: #### M 300.4500, M300.4600 #### [facility] [address] [place], [address] Bilirubin [Mass/Vol] 0.31 mg/dL Normal 0.00-1.30 [facility] Comment on above: Order Comment: PER I NTERRUSLAN COMMENT-FIBRIN DDIMOrder Date: 03/24/25Order Info: 0786-1 - CMPOrder Info: [id number] - CRPOrder Info: [id number] - RA Performed By: #### M 300.4500, M300.4600 #### [facility] [address] [place], [address] BUN/CRE 28.4 RATIO High 10-20 [facility] Comment on above: Order Comment: PER I NTERFACE COMMENT-FIBRIN DDIMOrder Date: 03/24/25Order Info: 0786-1 - CMPOrder Info: [id number] - CRPOrder Info: [id number] - RA Performed By: #### M 300.4500, M300.4600 #### [facility] [address] [place], [address] Calcium [Mass/Vol] 9.2 mg/dL Normal 7.6-11.0 [facility] Comment on above: Order Comment: PER I NTERFACE COMMENT-FIBRIN DDIMOrder Date: 03/24/25Order Info: 0786-1 - CMPOrder Info: [id number] - CRPOrder Info: [id number] - RA Performed By: #### M 300.4500, M300.4600 #### [facility] [address] [place], [address] Chloride [Moles/Vol] 103 mmol/L Normal 98-108 [facility] Comment on above: Order Comment: PER I NTERFACE COMMENT-FIBRIN DDIMOrder Date: 03/24/25Order Info: 0786-1 - CMPOrder Info: [id number] - CRPOrder Info: [id number] - RA Performed By: #### M 300.4500, M300.4600 #### [facility] [address] [place], [address] CO2 [Moles/Vol] 24.0 mmol/L Normal 21.0-32.0 [facility] Comment on above: Order Comment: PER I NTERFACE COMMENT-FIBRIN DDIMOrder Date: 03/24/25Order Info: 0786-1 - CMPOrder Info: [id number] - CRPOrder Info: [id number] - RA Performed By: #### M 300.4500, M300.4600 #### [facility] [address] [place], [address] Creatinine [Mass/Vol] 0.76 mg/dL Normal 0.70-1.20 [facility] Comment on above: Order Comment: PER I NTERFACE COMMENT-FIBRIN DDIMOrder Date: 03/24/25Order Info: 0786-1 - CMPOrder Info: [id number] - CRPOrder Info: [id number] - RA Performed By: #### M 300.4500, M300.4600 #### [facility] [address] [place], [address] GAP 13 Normal 5-15 [facility] Comment on above: Order Comment: PER Emily NTERRUSLAN COMMENT-FIBRIN DDIMOrder Date: 03/24/25Order Info: 86-1 - CMPOrder Info: [id number] - CRPOrder Info: [id number] - RA Performed By: #### M 300.4500, M300.4600 #### [facility] [address] [place], [address] GFR/1.73 sq M.predicted among non-blacks MDRD (S/P/Bld) [Vol rate/Area] 91 mL/min/{1.73_m2} Normal >60 [facility] Comment on above: Order Comment: PER Emily WATSON COMMENT-FIBRIN DDIMOrder Date: 03/24/25Order Info: 86-1 - CMPOrder Info: [id number] - CRPOrder Info: [id number] - RA Result Comment: mL/m in/1.73m2 CKD-EPI Creatinine Equation (2020) Performed By: #### M 300.4500, M300.4600 #### [facility] [address] [place], [address] Globulin (S) [Mass/Vol] 4.2 g/dL Normal 2.2-4.2 [facility] Comment on above: Order Comment: PER Emily WATSON COMMENT-FIBRIN DDIMOrder Date: 03/24/25Order Info: 0786-1 - CMPOrder Info: [id number] - CRPOrder Info: [id number] - RA Performed By: #### M 300.4500, M300.4600 #### [facility] [address] [place], [address] Glucose [Mass/Vol] 110 mg/dL High 70-99 [facility] Comment on above: Order Comment: PER Emily RUSHERRUSLAN COMMENT-FIBRIN DDIMOrder Date: 03/24/25Order Info: 785-1 - CMPOrder Info: [id number] - CRPOrder Info: [id number] - RA Performed By: #### M 300.4500, M300.4600 #### [facility] [address] [place], [address] Potassium [Moles/Vol] 4.0 mmol/L Normal 3.3-5.1 [facility] Comment on above: Order Comment: PER Emily RUSHERRUSLAN COMMENT-FIBRIN DDIMOrder Date: 03/24/25Order Info: 785-05 - CMPOrder Info: [id number] - CRPOrder Info: [id number] - RA Performed By: #### M 300.4500, M300.4600 #### [facility] [address] [place], [address] Sodium [Moles/Vol] 139 mmol/L Normal 133-145 [facility] Comment on above: Order Comment: PER Emily WATSON COMMENT-FIBRIN DDIMOrder Date: 03/24/25Order Info: 785-05 - CMPOrder Info: [id number] - CRPOrder Info: [id number] - RA Performed By: #### M 300.4500, M300.4600 #### [facility] [address] [place], [address] T PROT 7.8 g/dL Normal 5.9-8.4 [facility] Comment on above: Order Comment: PER Emily WATSON COMMENT-FIBRIN DDIMOrder Date: 03/24/25Order Info: 785- - CMPOrder Info: [id number] - CRPOrder Info: [id number] - RA Performed By: #### M 300.4500, M300.4600 #### [facility] [address] [place], [address] Urea nitrogen [Mass/Vol] 22 mg/dL High 4-19 [facility] Comment on above: Order Comment: PER Emily WATSON COMMENT-FIBRIN DDIMOrder Date: 03/24/25Order Info: 0786-1 - CMPOrder Info: [id number] - CRPOrder Info: [id number] - RA Performed By: #### M 300.4500, M300.4600 #### [facility] [address] [place], [address] D-Dimer Quantitative (DVT/PE )on 03-24-2025 D-DIMER QUANT 6.02 FEU/ug/m Invalid Interpretation Code 0.27-0.49 [facility] Comment on above: Order Comment: PER Emily WATSON COMMENT-FIBRIN DDIM Result Comment: D-Di oneyda ELEVATED (>0.49): Additional studies and clinical assessments are indicated to conclude diagnosis of: Deep Vein Thrombosis (DVT) or Pulmonary Embolism (PE) CRITICAL VALUE CALLED TO DR GILSON CISNEROS 03/24/25 1835 Bernadette Marin. RESULTS READ BACK BY SAME. Performed By: #### M 300.4500, M300.4600 #### [facility] [address] [place], [address] Fibrinogenon 03-24-2025 FIBRINOGEN 872 mg/dl High 203-444 [facility] Comment on above: Order Comment: PER Emily WATSON COMMENT-FIBRIN DDIM Performed By: #### L 300.8000, L300.4700 #### [facility] [address] [place], [address] Rheumatoid Factoron 03-24-20 25 RHEUMATOID FAC 12.1 IU/mL Normal <15 [facility] Comment on above: Order Comment: PER Emily WATSON COMMENT-FIBRIN DDIMOrder Date: 03/24/25Order Info: 0786-1 - CMPOrder Info: [id number] - CRPOrder Info: [id number] - RA Performed By: #### M 300.4500, M300.4600 #### [facility] [address] [place], [place], [address] CBC W/Diff, Automatedon 10-2 PLT EST ADEQUATE Normal ADEQ [facility] Comment on above: Order Comment: Order Date: 03/11/25 Order Info: [id number] - CBCD Performed By: #### L 100.0100, L500.4050 #### [facility] [address] [place], [place], [address] Chest PA and Lateralon 03-11 Chest PA and Lateral [facility] Imaging Services [address] [place], [place] [address] Chest PA and Lateral MR#: [id number] Acct: [id number] Name: ARELIS ADAN Rep #: [id number] : 1965 F 59 From: Ronald Nolan PCP: Dr. Steven Gillette MD Status: REG CLI Study: Chest PA and Lateral Date of Exam: 03/11/25 Exam# [id number] Ordering Dr: Steven Gillette MD PROCEDURE: CHEST [...] noted, right worse than left. Reading Location: [place] [address] CC: Dr. Steven Gillette MD Production Control Analyst: Signed Normal [facility] Comprehensive Metabolic Prof ilon 03-11-2025 Albumin [Mass/Vol] 3.8 g/dL Normal 3.5-5.0 [facility] Comment on above: Order Comment: Order Date: 03/11/25 Order Info: 0786-1 - CMP Performed By: #### L 100.0100, L500.4050 #### [facility] [address] [place], [address] Albumin/Globulin [Mass ratio] 1.0 {ratio} Normal 0.9-2.4 [facility] Comment on above: Order Comment: Order Date: 03/11/25 Order Info: 0786-1 - CMP Performed By: #### L 100.0100, L500.4050 #### [facility] [address] [place], [address] ALK PHOS 70 U/L Normal 35-104 [facility] Comment on above: Order Comment: Order Date: 03/11/25 Order Info: 0786-1 - CMP Performed By: #### L 100.0100, L500.4050 #### [facility] [address] [place], [address] ALT [Catalytic activity/Vol] 19 U/L Normal <=34 [facility] Comment on above: Order Comment: Order Date: 03/11/25 Order Info: 0786-1 - CMP Performed By: #### L 100.0100, L500.4050 #### [facility] [address] [place], [address] AST [Catalytic activity/Vol] 32 U/L Normal <=31 [facility] Comment on above: Order Comment: Order Date: 03/11/25 Order Info: 0786-1 - CMP Performed By: #### L 100.0100, L500.4050 #### [facility] [address] [place], [address] Bilirubin [Mass/Vol] 0.52 mg/dL Normal 0.00-1.30 [facility] Comment on above: Order Comment: Order Date: 03/11/25 Order Info: 0786-1 - CMP Performed By: #### L 100.0100, L500.4050 #### [facility] [address] [place], [address] BUN/CRE 22.7 RATIO High 10-20 [facility] Comment on above: Order Comment: Order Date: 03/11/25 Order Info: 0786-1 - CMP Performed By: #### L 100.0100, L500.4050 #### [facility] [address] [place], [address] Calcium [Mass/Vol] 9.2 mg/dL Normal 7.6-11.0 [facility] Comment on above: Order Comment: Order Date: 03/11/25 Order Info: 0786-1 - CMP Performed By: #### L 100.0100, L500.4050 #### [facility] [address] [place], [address] Chloride [Moles/Vol] 102 mmol/L Normal 98-108 [facility] Comment on above: Order Comment: Order Date: 03/11/25 Order Info: 0786-1 - CMP Performed By: #### L 100.0100, L500.4050 #### [facility] [address] [place], [address] CO2 [Moles/Vol] 24.5 mmol/L Normal 21.0-32.0 [facility] Comment on above: Order Comment: Order Date: 03/11/25 Order Info: 0786-1 - CMP Performed By: #### L 100.0100, L500.4050 #### [facility] [address] [place], [address] Creatinine [Mass/Vol] 0.85 mg/dL Normal 0.70-1.20 [facility] Comment on above: Order Comment: Order Date: 03/11/25 Order Info: 0786-1 - CMP Performed By: #### L 100.0100, L500.4050 #### [facility] [address] [place], [address] GAP 12 Normal 5-15 [facility] Comment on above: Order Comment: Order Date: 03/11/25 Order Info: 0786-1 - CMP Performed By: #### L 100.0100, L500.4050 #### [facility] [address] [place], [address] GFR/1.73 sq M.predicted among non-blacks MDRD (S/P/Bld) [Vol rate/Area] 80 mL/min/{1.73_m2} Normal >60 [facility] Comment on above: Order Comment: Order Date: 03/11/25 Order Info: 0786-1 - CMP Result Comment: mL/m in/1.73m2 CKD-EPI Creatinine Equation (2020) Performed By: #### L 100.0100, L500.4050 #### [facility] [address] [place], [address] Globulin (S) [Mass/Vol] 4.0 g/dL Normal 2.2-4.2 [facility] Comment on above: Order Comment: Order Date: 03/11/25 Order Info: 0786-1 - CMP Performed By: #### L 100.0100, L500.4050 #### [facility] [address] [place], [address] Glucose [Mass/Vol] 173 mg/dL High 70-99 [facility] Comment on above: Order Comment: Order Date: 03/11/25 Order Info: 0786-1 - CMP Performed By: #### L 100.0100, L500.4050 #### [facility] [address] [place], [address] Potassium [Moles/Vol] 3.9 mmol/L Normal 3.3-5.1 [facility] Comment on above: Order Comment: Order Date: 03/11/25 Order Info: 0786-1 - CMP Performed By: #### L 100.0100, L500.4050 #### [facility] [address] [place], [address] Sodium [Moles/Vol] 139 mmol/L Normal 133-145 [facility] Comment on above: Order Comment: Order Date: 03/11/25 Order Info: 0786-1 - CMP Performed By: #### L 100.0100, L500.4050 #### [facility] [address] [place], [place], [address] T PROT 7.7 g/dL Normal 5.9-8.4 [facility] Comment on above: Order Comment: Order Date: 03/11/25 Order Info: 0786-1 - CMP Performed By: #### L 100.0100, L500.4050 #### [facility] [address] [place], [place], [address] Urea nitrogen [Mass/Vol] 19 mg/dL Normal 4-19 [facility] Comment on above: Order Comment: Order Date: 03/11/25 Order Info: 0786-1 - CMP Performed By: #### L 100.0100, L500.4050 #### [facility] [address] [place], [place], [address] CNOVon 11-19-2024 CNOV Office Visit (OBGYWM ) ARELIS ADAN I ([id number]) 1965 F Date Time Provider Department 11/19/24 8:15 AM NORMA LERMA During your visit today, we recorded the following information about you: Blood pressure Weight Height 124/70 59 kg 1.626 m Norma Lerma APRN.CNP 11/19/2024 8:21 AM Signed [employer] offered: Patient declinesMarley Infante is a 59 year old No obstetric [...] OB History No obstetric history on file. Brush Head Maker History LMP: 09/12/2019, Postmenopausal Age at Menarche: 16 Age at First : Age at Menopause: Brush Head Maker History Comments: Sexual Activity: Yes; Male Contraception: [...] discussed with the Patient or Patient's Authorized Firestop/Containment Worker. As applicable, any other physician, advance practice provider, medical student, or other health professional student that will be observing or involved in the sensitive examination for educational or training purposes was discussed with the Patient or Authorized Firestop/Containment Worker. The Patient or Authorized Firestop/Containment Worker has agreed to proceed with the sensitive [...] external genitalia normal, normal Bartholin's glands, urethra, [place]'s glands, no vulvar lesions, no cervical lesions, [...] MG CAPSULE (more content not included)... Normal [facility] Michel 08-12-2024 LANNY Telephone (OBGYWM) ARELIS ADAN I ([id number]) 1965 F Date Time Provider Department 08/12/24 [...] returns to the office. DENNIS Walker Emily, APRN.[employer] PANEL[employer] FABRICATOR 08/13/2024 7:23 AM Signed Not a common side effect with HRT. However, HRT can cause increased risk of blood clots so needs to be evaluated by PCP or go to ER. Norma Lerma APRN.Tierra Servin RN 08/13/2024 8:35 AM Signed Patient notified. Tierra Grimaldo RN Allergies As of Date: 08/12/2024 (No Known Allergies) Date Reviewed: 06/20/2024 Reviewed by: Norma Lerma APRN.ZEE - Fully Assessed Reason for Visit: Patient Question [0257] Prescriptions as of 08/13/2024 - estradiol (CLIMARA) 0.025 mg/24 hr patch Apply 1 Patch as directed one time a week. - progesterone micronized (PROMETRIUM) 100 mg capsule Take 1 capsule by mouth daily at bedtime. - rosuvastatin (CRESTOR) 10 mg tablet Take 10 mg by mouth once daily. - multivit,thx,calcium,i jt,mins (MULTIVITAMIN AND MINERAL ORAL) Take 1 tablet by mouth once daily. - Cholecalciferol, Vitamin D3, (VITAMIN D) 25 mcg (1,000 unit) cap Take 1,000 Units by mouth once daily. - mecobalamin (B12 ACTIVE ORAL) Take by mouth once daily. Problem List As Of Date: 08/12/2024 (None) Encounter Status:Closed by TIERRA GRIMALDO on 08/13/24 [facility] 08-04-2024 LANNY Telephone (OBGYWM) ANTIONETTEARELIS Emily ([id number]) 1965 F Date Time Provider Department 08/04/24 NORMA LERMA OBGYWM During your visit today, we recorded the following information about you: Marii Nagy LPN 08/04/2024 9:41 AM Signed Patient called stating that she was prescribed the estradiol patch 05/2024 and is having itching in area where adhesive is. Patient tried removing the adhesive and using tape but this is not practical for [facility]cc use. Patient asking if there is another patch available? Or recommendations for people sensitive to the adhesive? Respond to patient by mychart message Norma Lerma APRN.[employer]EL[employer] FABRICATOR 08/04/2024 9:53 AM Signed I recommend rotating application site if she isn't already. Unfortunately, this is a common side effect of patch. I recommend appointment to discuss. Norma Lerma APRN.Prisca Lockwood RN 08/04/2024 9:57 AM Signed Patient notified and voiced understanding. Patient states she will call and schedule and appointment if she feels is needed. Prisca Marin RN Allergies As of Date: 08/04/2024 (No Known Allergies) Date Reviewed: 06/20/2024 Reviewed by: Norma Lerma APRN.[employer] PANEL[employer] FABRICATOR - Fully Assessed Reason for Visit: Patient Update [1234] Prescriptions as of 08/04/2024 - estradiol (CLIMARA) 0.025 mg/24 hr patch Apply 1 Patch as directed one time a week. - progesterone micronized (PROMETRIUM) 100 mg capsule Take 1 capsule by mouth daily at bedtime. - rosuvastatin (CRESTOR) 10 mg tablet Take 10 mg by mouth once daily. - multivit,thx,calcium,i jt,mins (MULTIVITAMIN AND MINERAL ORAL) Take 1 tablet by mouth once daily. - Cholecalciferol, Vitamin D3, (VITAMIN D) 25 mcg (1,000 unit) cap Take 1,000 Units by mouth once daily. - mecobalamin (B12 ACTIVE ORAL) Take by mouth once daily. Problem List As Of Date: 08/04/2024 (None) Encounter Status:Closed by PRISCA MARIN on 08/04/24 [facility] Michel 05-23-2024 LANNY Telephone (OBGYWM) ARELIS ADAN I ([id number]) 1965 F Date Time Provider Department 05/23/24 NORMA LERMA During your visit today, we recorded the following information about you: Norma Lerma APRN.CNP 05/23/2024 7:13 AM Signed Please notify patient: [...] Date Reviewed: 05/21/2024 Reviewed by: Norma Lerma APRN.CNP - Fully Assessed Reason for Visit: Results [95] Prescriptions as of 05/23/2024 - estradiol (CLIMARA) 0.025 mg/24 hr patch Apply 1 Patch as directed one time a week. - progesterone micronized (PROMETRIUM) 100 mg capsule Take 1 capsule by mouth daily at bedtime. - rosuvastatin (CRESTOR) 10 mg tablet Take 10 mg by mouth once daily. - multivit,thx,calcium,i jt,mins (MULTIVITAMIN AND MINERAL ORAL) Take 1 tablet by mouth once daily. - Cholecalciferol, Vitamin D3, (VITAMIN D) 25 mcg (1,000 unit) cap Take 1,000 Units by mouth once daily. - mecobalamin (B12 ACTIVE ORAL) Take by mouth once daily. Problem List As Of Date: 05/23/2024 (None) Encounter Status:Closed by SPEEDY SOARES on 05/23/24 Normal [facility] 25(OH)D3 SerPl-mCncon 2024 25-hydroxyvitamin D3 [Mass/Vol] 58.3 ng/mL Normal 31.0-80.0 [facility] Comment on above: Order Comment: Holly tompkins Type: BLOOD SPECIMEN Ordering Facility: [facility] Address: [address] [place] [address] Result Comment: Clas sification of 25 [place] Vitamin D status: Deficiency/Insufficiency: < or = 30 ng/ml. Sufficiency/Optimal Levels: 31-80 ng/mL Toxicity: > 100 ng/mL. Test performed by chemiluminescent immunoassay. Performed By: #### 1 989-3 #### [facility] CLIA [id number] [address] [place] [address] [place] CBC panel Auto (Bld)on 05-22 Erythrocyte distribution width (RBC) [Ratio] 11.9 % Normal 11.5-15.0 [facility] Comment on above: Order Comment: Holly tompkins Type: BLOOD SPECIMEN Ordering Facility: [facility] Address: [address] [place] [address] Performed By: #### 5 8410-2 #### [facility] CLIA [id number] [address] [place] [address] [place] Hematocrit (Bld) [Volume fraction] 41.4 % Normal 36.0-46.0 [facility] Comment on above: Order Comment: Holly tompkins Type: BLOOD SPECIMEN Ordering Facility: [facility] Address: [address] [place] [address] Performed By: #### 5 8410-2 #### [facility] CLIA [id number] [address] [place] [address] [place] Hemoglobin (Bld) [Mass/Vol] 13.6 g/dL Normal 11.5-15.5 [facility] Comment on above: Order Comment: Speci men Type: BLOOD SPECIMEN Ordering Facility: [facility] Address: [address] [place] [address] Performed By: #### 5 8410-2 #### [facility] CLIA [id number] [address] [place] [address] [place] MCH (RBC) [Entitic mass] 31.0 pg Normal 26.0-34.0 [facility] Comment on above: Order Comment: Speci men Type: BLOOD SPECIMEN Ordering Facility: [facility] Address: [address] [place] [address] Performed By: #### 5 8410-2 #### [id number] [address] [place] [address] [place] MCHC (RBC) [Mass/Vol] 32.9 g/dL Normal 30.5-36.0 [facility] Comment on above: Order Comment: Speci men Type: BLOOD SPECIMEN Ordering Facility: [facility] Address: [address] [place] [address] Performed By: #### 5 8410-2 #### [id number] [address] [place] [address] [place] MCV (RBC) [Entitic vol] 94.3 fL Normal 80.0-100.0 [facility] Comment on above: Order Comment: Speci men Type: BLOOD SPECIMEN Ordering Facility: [facility] Address: [address] [place] [address] Performed By: #### 5 8410-2 #### [id number] [address] [place] [address] [place] Nucleated RBC (Bld) [#/Vol] 10*3/uL Normal <0.01 [facility] Comment on above: Order Comment: Speci men Type: BLOOD SPECIMEN Ordering Facility: [facility] Address: [address] [place] [address] Performed By: #### 5 8410-2 #### [facility] CLIA [id number] [address] [place] [address] [place] Platelet mean volume (Bld) [Entitic vol] 9.6 fL Normal 9.0-12.7 [facility] Comment on above: Order Comment: Speci men Type: BLOOD SPECIMEN Ordering Facility: [facility] Address: [address] [place] [address] Performed By: #### 5 8410-2 #### [facility] CLIA [id number] [address] [place] [address] [place] Platelets (Bld) [#/Vol] 206 10*3/uL Normal 150-400 [facility] Comment on above: Order Comment: Speci men Type: BLOOD SPECIMEN Ordering Facility: [facility] Address: [address] [place] [address] Performed By: #### 5 8410-2 #### [facility] CLIA [id number] [address] [place] [address] [place] RBC (Bld) [#/Vol] 4.39 10*6/uL Normal 3.90-5.20 [facility] Comment on above: Order Comment: Speci men Type: BLOOD SPECIMEN Ordering Facility: [facility] Address: [address] [place] [address] Performed By: #### 5 8410-2 #### [facility] CLIA [id number] [address] [place] [address] [place] WBC (Bld) [#/Vol] 6.59 10*3/uL Normal 3.70-11.00 [facility] Comment on above: Order Comment: Speci men Type: BLOOD SPECIMEN Ordering Facility: [facility] Address: [address] [place] [address] Performed By: #### 5 8410-2 #### [facility] CLIA [id number] [address] [place] [address] [place] Comprehensive metabolic 2000 panelon 05-22-2024 Albumin [Mass/Vol] 4.4 g/dL Normal 3.9-4.9 [facility] Comment on above: Order Comment: Speci men Type: BLOOD SPECIMEN Ordering Facility: [facility] Address: [address] [place] [address] Performed By: #### 5 5454-3 #### [facility] CLIA [id number] [address] [place] [address] [place] ALP [Catalytic activity/Vol] 79 U/L Normal 34-123 [facility] Comment on above: Order Comment: Speci men Type: BLOOD SPECIMEN Ordering Facility: [facility] Address: [address] [place] [address] Performed By: #### 5 5454-3 #### [facility] CLIA [id number] [address] [place] [address] [place] ALT [Catalytic activity/Vol] 15 U/L Normal 7-38 [facility] Comment on above: Order Comment: Speci men Type: BLOOD SPECIMEN Ordering Facility: [facility] Address: [address] [place] [address] Performed By: #### 5 5454-3 #### [facility] CLIA [id number] [address] [place] [address] [place] Anion gap [Moles/Vol] 9 mmol/L Normal 8-15 [facility] Comment on above: Order Comment: Speci men Type: BLOOD SPECIMEN Ordering Facility: [facility] Address: [address] [place] [address] Performed By: #### 5 5454-3 #### [facility] CLIA [id number] [address] [place] [address] [place] AST [Catalytic activity/Vol] 22 U/L Normal 13-35 [facility] Comment on above: Order Comment: Speci men Type: BLOOD SPECIMEN Ordering Facility: [facility] Address: [address] [place] [address] Performed By: #### 5 5454-3 #### [facility] CLIA [id number] [address] [place] [address] [place] Bilirubin [Mass/Vol] 0.4 mg/dL Normal 0.2-1.3 [facility] Comment on above: Order Comment: Speci men Type: BLOOD SPECIMEN Ordering Facility: [facility] Address: [address] [place] [address] Performed By: #### 5 5454-3 #### [facility] CLIA [id number] [address] [place] [address] [place] Calcium [Mass/Vol] 9.9 mg/dL Normal 8.5-10.2 [facility] Comment on above: Order Comment: Speci men Type: BLOOD SPECIMEN Ordering Facility: [facility] Address: [address] [place] [address] Performed By: #### 5 5454-3 #### [facility] CLIA [id number] [address] [place] [address] [place] Chloride [Moles/Vol] 104 mmol/L Normal 98-107 [facility] Comment on above: Order Comment: Speci men Type: BLOOD SPECIMEN Ordering Facility: [facility] Address: [address] [place] [address] Performed By: #### 5 5454-3 #### [facility] CLIA [id number] [address] [place] [address] [place] CO2 [Moles/Vol] 26 mmol/L Normal 22-30 [facility] Comment on above: Order Comment: Speci men Type: BLOOD SPECIMEN Ordering Facility: [facility] Address: [address] [place] [address] Performed By: #### 5 5454-3 #### [facility] CLIA [id number] [address] [place] [address] [place] Creatinine [Mass/Vol] 0.73 mg/dL Normal 0.58-0.96 [facility] Comment on above: Order Comment: Holly tompkins Type: BLOOD SPECIMEN Ordering Facility: [facility] Address: [address] [place] [address] Performed By: #### 5 5454-3 #### [facility] CLIA [id number] [address] [place] [address] [place] Creatinine and Glomerular filtration rate.predicted panel (S/P/Bld) 96 mL/min/1.73m??? Normal >=60 [facility] Comment on above: Order Comment: Holly tompkins Type: BLOOD SPECIMEN Ordering Facility: [facility] Address: [address] [place] [address] Result Comment: Ashlee mated Glomerular Filtration Rate [...] GFR. Performed By: #### 5 5454-3 #### [facility] CLIA [id number] [address] [place] [address] [place] Glucose [Mass/Vol] 109 mg/dL High 74-99 [facility] Comment on above: Order Comment: Holly tompkins Type: BLOOD SPECIMEN Ordering Facility: [facility] Address: [address] [place] [address] Result Comment: The [place] Diabetes Association (ADA) provides guidance for cutoff [...] Standards of Medical Care in Diabetes 2016, [place] Diabetes Association. Diabetes Care. 2016.39(Suppl 1). Performed By: #### 5 5454-3 #### [facility] CLIA [id number] [address] [place] [address] [place] Potassium [Moles/Vol] 3.8 mmol/L Normal 3.7-5.1 [facility] Comment on above: Order Comment: Holly tompkins Type: BLOOD SPECIMEN Ordering Facility: [facility] Address: [address] [place] [address] Performed By: #### 5 5454-3 #### [facility] CLIA [id number] [address] [place] [address] [place] Protein [Mass/Vol] 7.6 g/dL Normal 6.3-8.0 [facility] Comment on above: Order Comment: Holly tompkins Type: BLOOD SPECIMEN Ordering Facility: [facility] Address: [address] [place] [address] Performed By: #### 5 5454-3 #### [facility] CLIA [id number] [address] [place] [address] [place] Sodium [Moles/Vol] 139 mmol/L Normal 136-144 [facility] Comment on above: Order Comment: Holly tompkins Type: BLOOD SPECIMEN Ordering Facility: [facility] Address: [address] [place] [address] Performed By: #### 5 5454-3 #### [facility] CLIA [id number] [address] [place] [address] [place] Urea nitrogen [Mass/Vol] 23 mg/dL High 7-21 [facility] Comment on above: Order Comment: Holly tompkins Type: BLOOD SPECIMEN Ordering Facility: [facility] Address: [address] [place] [address] Performed By: #### 5 5454-3 #### [facility] CLIA [id number] [address] [place] [address] OF NO[place] HbA1c (Bld)on 05-22-2024 Average glucose Estimated from glycated hemoglobin (Bld) [Mass/Vol] 105 mg/dL Normal [facility] Comment on above: Order Comment: Holly tompkins Type: BLOOD SPECIMEN Ordering Facility: [facility] Address: [address] [place] [address] Result Comment: eAG: (Estimated average glucose) is a calculated value from HgbA1c and is customer field representative of the average blood glucose level in the last 2-3 month period. Performed By: #### 5 5454-3 #### [facility] CLIA [id number] [address] [place] [address] [place] HbA1c (Bld) [Mass fraction] 5.3 % Normal 4.3-5.6 [facility] Comment on above: Order Comment: Holly tompkins Type: BLOOD SPECIMEN Ordering Facility: [facility] Address: [address] [place] [address] Result Comment: [place] Diabetes Association guidelines indicate that patients with HgbA1c in the range 5.7-6.4% are at increased risk for development of diabetes, and intervention by lifestyle modification may be beneficial. HgbA1c greater or equal to 6.5% is considered diagnostic of diabetes. Performed By: #### 5 5454-3 #### [facility] CLIA [id number] [address] [place] [address] [place] Lipid 1996 panelon Cholesterol [Mass/Vol] 257 mg/dL High <200 [facility] Comment on above: Order Comment: Holly tompkins Type: BLOOD SPECIMEN Ordering Facility: [facility] Address: [address] [place] [address] Result Comment: <200 mg/dL, Desirable 200-239 mg/dL, Borderline high >239 mg/dL, High Performed By: #### 5 5454-3 #### [facility] CLIA [id number] [address] [place] [address] [place] Cholesterol in HDL [Mass/Vol] 61 mg/dL Normal >39 [facility] Comment on above: Order Comment: Holly tompkins Type: BLOOD SPECIMEN Ordering Facility: [facility] Address: [address] [place] [address] Result Comment: 40-5 9 mg/dL, Acceptable >59 mg/dL, High: Negative risk factor for coronary heart disease <40 mg/dL, Low: Positive risk factor for coronary heart disease Performed By: #### 5 5454-3 #### [facility] CLIA [id number] [address] [place] [address] [place] [facility] Cholesterol in LDL [Mass/Vol] 176 mg/dL High <100 [facility] Comment on above: Order Comment: Holly tompkins Type: BLOOD SPECIMEN Ordering Facility: [facility] Address: [address] [place] [address] Result Comment: <100 mg/dL, Optimal 100-129 mg/dL, Near optimal/above optimal 130-159 mg/dL, Borderline high 160-189 mg/dL, High >189 mg/dL, Very high Secondary prevention optimal LDL Cholesterol levels are recommended to be < 70 mg/dL Performed By: #### 5 5454-3 #### [facility] CLIA [id number] [address] [place] [address] [place] Cholesterol in LDL/Cholesterol in HDL [Mass ratio] 2.89 {ratio} High <2.54 [facility] Comment on above: Order Comment: Holly tompkins Type: BLOOD SPECIMEN Ordering Facility: [facility] Address: [address] [place] [address] Result Comment: Refe rence: 1. National Cholesterol Education Program ATP III Guideline At-A-Glance Quick Desk Reference: National Heart, Lung, and Blood [place]. National Institutes of Health. 2001: NIH Publication No. 01-3305. 2. An International Atherosclerosis Society position paper: global recommendations for the management of dyslipidemia: executive summary, Atherosclerosis. 2014: 232(2):410-413. Performed By: #### 5 5454-3 #### [facility] CLIA [id number] [facility] [place] [address] [place] Cholesterol in VLDL [Mass/Vol] 20 mg/dL Normal <30 [facility] Comment on above: Order Comment: Holly tompkins Type: BLOOD SPECIMEN Ordering Facility: [facility] Address: [address] [place] [address] Performed By: #### 5 5454-3 #### [facility] CLIA [id number] [address] [place] [address] [place] Cholesterol non HDL [Mass/Vol] 196 mg/dL High <130 [facility] Comment on above: Order Comment: Holly tompkins Type: BLOOD SPECIMEN Ordering Facility: [facility] Address: [address] [place] [address] Result Comment: <130 mg/dL, Optimal 130-159 mg/dL, Near optimal/above optimal 160-189 mg/dL, Borderline high 190-219 mg/dL, High >219 mg/dL, Very high Secondary prevention optimal non HDL Cholesterol levels are recommended to be <100 mg/dL Performed By: #### 5 5454-3 #### [facility] CLIA [id number] [address] [place] [address] [place] Cholesterol.total/ Cholesterol in HDL [Mass ratio] 4.21 {ratio} Normal <5.10 [facility] Comment on above: Order Comment: Holly tompkins Type: BLOOD SPECIMEN Ordering Facility: [facility] Address: [address] [place] [address] Performed By: #### 5 5454-3 #### [facility] CLIA [id number] [address] [place] [address] [place] FASTING TIME 12 hrs Normal [facility] Comment on above: Order Comment: Speci men Type: BLOOD SPECIMEN Ordering Facility: [facility] Address: [address] [place] [address] Performed By: #### 5 5454-3 #### [facility] CLIA [id number] [address] [place] [address] [place] Triglyceride [Mass/Vol] 98 mg/dL Normal <150 [facility] Comment on above: Order Comment: Speci men Type: BLOOD SPECIMEN Ordering Facility: [facility] Address: [address] [place] [address] Result Comment: <150 mg/dL, Normal 150-199 mg/dL, Borderline high 200-499 mg/dL, High >499 mg/dL, Very high Performed By: #### 5 5454-3 #### [facility] CLIA [id number] [address] [place] [address] [place] CNOVon 05-21-2024 CNOV Office Visit (OBGYWM ) ARELIS ADAN I ([id number]) 1965 F Date Time Provider Department 05/21/24 9:15 AM NORMA LERMA During your visit today, we recorded the following information about you: Blood pressure Weight 120/74 62 kg Norma Lerma APRN.[employer] FABRICATOR 05/21/2024 9:31 AM Signed Arelis Emily Adan is a 59 year old female [...] OB History No obstetric history on file. Brush Head Maker History LMP: 09/12/2019, Postmenopausal Age at Menarche: Age at First : Age at Menopause: Brush Head Maker History Comments: Sexual Activity: Yes; Male Contraception: [...] Take 10 mg by mouth once daily. multivit,thx,calcium,i jt,mins (MULTIVITAMIN AND MINERAL ORAL) Take 1 tablet [...] 9:21 AM Signed This is from the [employer] website: Placing the patch on your skin [...] original appl (more content not included)... Normal [facility] Michel 05-12-2024 LANNY Telephone (OBGYWM) ARELIS ADAN I ([id number]) 1965 F Date Time Provider Department 12/30/24 NORMA LERMA During your visit today, we [...] notified and voiced understanding, appointment scheduled. Prisca Marni RN Allergies As of Date: 05/12/2024 (No Known Allergies) Date Reviewed: 10/25/2023 Reviewed by: Norma Lerma APRN.ZEE - Fully Assessed Reason for Visit: hot flashes [Other] Prescriptions as of 05/12/2024 - rosuvastatin (CRESTOR) 10 mg tablet Take 10 mg by mouth once daily. - multivit,thx,calcium,i jt,mins (MULTIVITAMIN AND MINERAL ORAL) Take 1 tablet by mouth once daily. - Cholecalciferol, Vitamin D3, (VITAMIN D) 25 mcg (1,000 unit) cap Take 1,000 Units by mouth once daily. - mecobalamin (B12 ACTIVE ORAL) Take by mouth once daily. Problem List As Of Date: 05/12/2024 (None) Encounter Status:Closed by PRISCA MARIN on 05/12/24 Normal [facility] Basophil percentageon 2021 Bilirubin [Mass/Vol] 0.40 mg/dL 0.20-1.00 [facility] Work Phone: Comment on above: For patients on eltr ombopag therapy, use of Dimension [place] TBIL is not recommended. Chloride [Moles/Vol] 108 mmol/L 98-107 [facility] Work Phone: Cholesterol [Mass/Vol] 148 mg/dL <200 [facility] Work Phone: [phone] Comment on above: <200 mg/dL Desirable 200-240 mg/dL Borderline >240 mg/dL High Risk Glucose [Mass/Vol] 97 mg/dL 74-106 [facility] Work Phone: [phone] Potassium [Moles/Vol] 3.8 mmol/L 3.5-5.1 [facility] Work Phone: Protein [Mass/Vol] 7.8 g/dL 6.4-8.2 [facility] Work Phone: Sodium [Moles/Vol] 141 mmol/L 136-145 [facility] Work Phone: Triglyceride [Mass/Vol] 53 mg/dL <199 [facility] Work Phone: Comment on above: The drugs N-Acetylcy steine and Metamizole may falsely depress this assay.Serum Triglycerides Reference Interval Normal <150 mg/dL Borderline high 150 - 199 mg/dL High 200 - 499 mg/dL Very High > or = 500 mg/dL Laboratory - Chemistry and C hemistry - challengeon 02-14-2022 ALP [Catalytic activity/Vol] 77 U/L 45-117 [facility] Work Phone: ALT [Catalytic activity/Vol] 27 U/L 13-56 [facility] Work Phone: CO2 [Moles/Vol] 27.0 mmol/L 21.0-32.0 [facility] Work Phone: Globulin (S) [Mass/Vol] 3.9 g/dL 2.2-4.2 [facility] Work Phone: Urea nitrogen/Creatinin e [Mass ratio] 16.3 mg/mg 10-20 [facility] Work Phone: No Panel Informationon 02-14 Estimated GFR (MDRD) Amer 82 mL/min >60 [facility] Work Phone: Comment on above: GFR Calc Estimated GFR (MDRD) Non-Af Amer 68 mL/min >60 [facility] Work Phone: Comment on above: Non- GFR Calc Serum or plasma albumin chepe urement (mass/volume)on 02-14-2022 Albumin [Mass/Vol] 3.9 g/dL 3.2-5.0 [facility] Work Phone: Serum or plasma albumin/glob ulin mass ratioon 02-14-2022 Albumin/Globulin [Mass ratio] 1.0 {ratio} 0.9-2.4 [facility] Work Phone: Serum or plasma calcium chepe urement (mass/volume)on 02-14-2022 Calcium [Mass/Vol] 9.4 mg/dL 8.5-10.1 [facility] Work Phone: Serum or plasma cholesterol in HDL measurement (mass/volume)on 02-14-2022 Cholesterol in HDL [Mass/Vol] 69 mg/dL >40 [facility] Work Phone: Comment on above: The drugs N-Acetylcy steine and Metamizole may falsely depress this assay. Reference Range HDL <40 mg/dL Low HDL Cholesterol HDL >or= 60 mg/dL High HDL Cholesterol Serum or plasma cholesterol in VLDL measurement (mass/volume)on 02-14-2022 Cholesterol in VLDL [Mass/Vol] 11 mg/dL 5-40 [facility] Work Phone: Serum or plasma creatinine m easurement (mass/volume)on 02-14-2022 Creatinine [Mass/Vol] 0.92 mg/dL 0.55-1.02 [facility] Work Phone: Comment on above: The validity of the calculated GFR & GFRAA in patients over 70 years has not been determined. Clinical correlation is essential. Serum or plasma low density lipoprotein (LDL) cholesterol measurement (mass/volume)on 02-14-2022 Cholesterol in LDL [Mass/Vol] 68 mg/dL 0-130 [facility] Work Phone: Serum or plasma urea nitroge n measurement (mass/volume)on 02-14-2022 Urea nitrogen [Mass/Vol] 15 mg/dL 7-18 [facility] Work Phone: Thin prep Papanicolaou smear with manual screeningon 02-14-2022 Thin prep Papanicolaou smear with manual screening 21 U/L 15-37 [facility] Work Phone: Thin prep Papanicolaou smear with manual screening 6 5-15 [facility] Work Phone: Culture, urine Bacteria identified Cx Nom (U) Staphylococcus epidermidis [facility] Work Phone: Vital Signs Date Time Vital Sign Value Performing Clinician An latham 11-19-2024 08:06-0400 Body height 162.6 cm Norma Lerma APRN.[employer] FABRICATOR Work Phone: [facility] 11-19-2024 08:06-0400 Body mass index (BMI) [Ratio] 22.31 kg/m2 Norma Lerma APRN.[employer] FABRICATOR Work Phone: [facility] 11-19-2024 08:06-0400 Body weight 58.97 kg Norma Lerma APRN.[employer] FABRICATOR Work Phone: [facility] 11-19-2024 08:06-0400 Diastolic blood pressure 70 mm[Hg] Norma Lerma BILINGUAL STUDENT TUTOR.[employer] FABRICATOR Work Phone: [facility] 11-19-2024 08:06-0400 Systolic blood pressure 124 mm[Hg] Norma Havince BILINGUAL STUDENT TUTOR.[employer] FABRICATOR Work Phone: [facility] 05-21-2024 09:07-0500 Body mass index (BMI) [Ratio] 23.45 kg/m2 Normadarien Lerma BILINGUAL STUDENT TUTOR.[employer] FABRICATOR Work Phone: [facility] 05-21-2024 09:07-0500 Body weight 61.96 kg Norma Lerma APRN.[employer] FABRICATOR Work Phone: [facility] 05-21-2024 09:07-0500 Diastolic blood pressure 74 mm[Hg] Norma Havince BILINGUAL STUDENT TUTOR.[employer] FABRICATOR Work Phone: [facility] 05-21-2024 09:07-0500 Systolic blood pressure 120 mm[Hg] Norma Havince BILINGUAL STUDENT TUTOR.[employer] FABRICATOR Work Phone: [facility] 10-25-2023 07:23-0400 Body height 162.6 cm Norma Lerma APRN.[employer] FABRICATOR Work Phone: [facility] 10-25-2023 07:23-0400 Body mass index (BMI) [Ratio] 24.03 kg/m2 Norma Lerma APRN.[employer] FABRICATOR Work Phone: [facility] 10-25-2023 07:23-0400 Body weight 63.5 kg Norma Lerma APRN.[employer] FABRICATOR Work Phone: [facility] 10-25-2023 07:23-0400 Diastolic blood pressure 78 mm[Hg] Norma Haury BILINGUAL STUDENT TUTOR.[employer] FABRICATOR Work Phone: [facility] 10-25-2023 07:23-0400 Systolic blood pressure 116 mm[Hg] Norma Havince BILINGUAL STUDENT TUTOR.[employer] FABRICATOR Work Phone: [facility] Encounters Encounter Date Encounter Type Care Provider Facility Start: 03-25-2025 ambulatory Steven Gillette Facility:[facility] Start: 03-25-2025 ambulatory Gilson Cisneros Facility:[facility] Start: 03-24-2025 ambulatory Skylar Wagner NP Facility :[facility] Start: 03-11-2025 End: 03-11-2025 ambulatory Steven Gillette Facility:[facility] Start: 11-19-2024 End: 11-19-2024 Patient encounter procedure Norma Lerma APRN.[employer] FABRICATOR Work Phone: OB/Gynecology Comment on above: Encounter for gyneco logical examination (general) (routine) without abnormal findings (Primary Dx); Encounter for screening mammogram for breast cancer; Hot flashes Start: 11-19-2024 End: 11-19-2024 Patient encounter status Norma Lerma APRN.[employer] FABRICATOR Work Phone: [facility] Start: 11-19-2024 End: 11-19-2024 ambulatory STEVEN GILLETTE Facility:[facility] Start: 11-19-2024 Encounter for gynecological examination (general) (routine) without abnormal findings NORMA LERMA [facility] Start: 08-12-2024 End: 08-13-2024 Telephone encounter Norma Lerma APRN.[employer] FABRICATOR Work Phone: OB/Gynecology Comment on above: Patient Question Start: 08-04-2024 End: 08-04-2024 Telephone encounter Norma Lerma APRN.[employer] FABRICATOR Work Phone: OB/Gynecology Comment on above: Patient Update Start: 06-20-2024 End: 06-20-2024 ambulatory Norma Lerma APRN.[employer] FABRICATOR Work Phone: OB/Gynecology Comment on above: Hormone replacement therapy (postmenopausal) (Primary Dx); Menopausal symptoms; Hyperlipidemia, unspecified hyperlipidemia type Start: 06-20-2024 End: 06-20-2024 Telemedicine consultation with patient Normadarien Torresvince WILCOXSHOWER DOORS AND PANELS FABRICATOR Work Phone: OB/Gynecology Start: 05-23-2024 End: 05-23-2024 Telephone encounter Norma Lerma APRN.[employer] FABRICATOR Work Phone: OB/Gynecology Comment on above: Results Start: 05-22-2024 End: 05-22-2024 ambulatory NORMA ELRMA Facility:[facility] Start: 05-21-2024 End: 05-21-2024 ambulatory NORMA LERMA Facility:[facility] Start: 05-21-2024 End: 05-21-2024 Patient encounter procedure Norma Lerma APRN.[employer] FABRICATOR Work Phone: OB/Gynecology Comment on above: Menopausal symptoms (Primary Dx) Start: 05-12-2024 End: 05-12-2024 Telephone encounter Norma Lerma APRN.[employer] PANEL[employer] FABRICATOR Work Phone: OB/Gynecology Comment on above: hot flashes Start: 10-25-2023 End: 10-25-2023 Patient encounter procedure Norma Lerma APRN.[employer] PANELS FABRICATOR Work Phone: OB/Gynecology Comment on above: Encounter for gyneco logical examination (general) (routine) with abnormal findings (Primary Dx); Encounter for screening for human papillomavirus (HPV); Pap smear for cervical cancer screening; Encounter for screening mammogram for breast cancer; Genitourinary syndrome of menopause; Hot flashes due to menopause; Night sweats Start: 10-25-2023 End: 10-25-2023 Patient encounter status Norma Lerma APRN.CNP Work Phone: [facility] Work Phone: Start: 02-14-2022 Patient encounter procedure [facility] Start: 02-13-2022 End: 02-13-2022 ambulatory [facility] Work Phone: Start: 02-13-2022 End: 02-13-2022 Patient encounter procedure [facility], Specimen Procedures Date Procedure Procedure Detail Performing Clinician Start: 05-22-2024 Lipid 1996 panel - S mitch or Plasma Norma Lerma APRN.CNP Work Phone: Bacteria identified in Urine by Culture Urine culture Plan of Treatment Date Care Activity Detail Author Start: 05-22-2029 Lipid panel Lipid Screening [facility] Start: 10-24-2028 Screening for malign ant neoplasm of cervix Cervical Cancer Screening [facility] Start: 05-22-2027 Diabetes Screening Diabetes Screenin g [facility] Start: 12-03-2025 End: 12-03-2025 Patient encounter procedure 12/03/2025 8:15 AM EDT Office Visit OB/Gynecology [address] [place] [place] [id number] Norma Lerma APRN.CNP [address] [place] [id number] Annual OB/Gynecology Comment on above: Annual Start: 01-12-2025 Influenza vaccination Influenza Vacc ine (#1) [facility] Start: 10-24-2024 End: 10-24-2024 Patient encounter procedure 10/24/2024 8:15 AM EDT Office Visit OB/Gynecology [address] [place] [address] Norma Lerma APRN.[employer]EL[employer] FABRICATOR [address] [place] [address] Annual OB/Gynecology Comment on above: Annual Start: 06-20-2024 End: 06-20-2024 ambulatory 06/20/2024 9:00 AM [facility] OB/Gynecology [address] [place] [address] Norma Lerma APRN.[employer]EL[employer] FABRICATOR [address] [place] [address] HRT f/u OB/Gynecology Comment on above: HRT f/u Start: 05-21-2024 End: 08-20-2024 25-hydroxyvitamin D3 [Mass/volume] in Serum or Plasma VITAMIN D 25 HYDROXY Lab Routine Menopausal symptoms Expected: 05/21/2024, Expires: 08/20/2024 [facility] Comment on above: Expected: 05/21/2024 , Expires: 08/20/2024 Start: 05-21-2024 End: 08-20-2024 CBC panel - Blood by Automated count COMPLETE BLOOD COUNT Lab Routine Menopausal symptoms Expected: 05/21/2024, Expires: 08/20/2024 [facility] Comment on above: Expected: 05/21/2024 [...] Routine Menopausal symptoms Expected: 05/21/2024, Expires: 08/20/2024 [facility] Comment on above: Expected: 05/21/2024 , Expires: 08/20/2024 Start: 05-21-2024 End: 08-20-2024 Lipid 1996 panel - Serum or Plasma LIPID PANEL BASIC Lab Routine Menopausal symptoms Expected: 05/21/2024, Expires: 08/20/2024 [facility] Comment on above: Expected: 05/21/2024 , Expires: 08/20/2024 Start: 05-21-2024 End: 05-21-2024 Patient encounter procedure 05/21/2024 9:15 AM EST Office Visit OB/Gynecology [address] [place] [address] Norma Lerma APRN.[employer]EL[employer] FABRICATOR [address] [place] [address] Discuss HRT OB/Gynecology Comment on above: Discuss HRT Start: 01-13-2024 Covid-19 Vaccine ( season) Covid-19 Vaccine () [facility] Start: 01-13-2024 Influenza vaccination [facility] Start: 05-14-2023 Behavioral Health Screening Behavioral Health Screening [facility] Start: 01-12-2023 Covid-19 Vaccine ( season) Covid-19 Vaccine ( season) [facility] Start: 05-15-2022 Screening for malign ant neoplasm of colon [facility] Start: 2017 Pneumococcal Vaccine : 50+ (1 of 1 - PCV) Pneumococcal Vaccine: 50+ (1 of 1 - PCV) [facility] Start: 2017 Shingrix Vaccine (1 of 2) Shingrix Vaccine (1 of 2) [facility] Start: 2012 Diabetes Screening Diabetes Screenin g [facility] Start: 2012 Lipid panel Lipid Screening [facility] Start: 2012 Screening for malign ant neoplasm of colon [facility] Start: 2007 Screening for malign ant neoplasm of breast Mammogram Screening [facility] Start: 1988 Screening for malign ant neoplasm of cervix Cervical Cancer Screening [facility] Start: 1986 Hepatitis B Vaccine (1 of 3 - 19+ 3-dose series) Hepatitis B Vaccine (1 of 3 - 19+ 3-dose series) [facility] Start: 1986 Urine microalbumin profile DTaP,Tdap,Td Vaccine (1 - Tdap) [facility] Start: 1985 Anxiety Screening Anxiety Screening [facility] Start: 1985 Depression Screening Depression Scre mary [facility] Start: 1985 Hepatitis C screening Hepatitis C Sc haider [facility] Start: 1985 HIV screening HIV Screening [facility] End: 12-19-2025 DBT Breast - bilateral screening [...] until 11/23/2024 PAP TEST PAP TEST Lab Rou reji Encounter for screening for human papillomavirus (HPV) Pap smear for cervical cancer screening 10/25/2023 11:08 AM EDT [facility] Payers Date Payer Category Payer Unknown [id number] 2025 Self-pay [id number] 2021 Private Health Insurance [facility] GENER[facility] [id number] 2021 Unknown [id number] 2021 Unknown [id number] 2021 Unknown SELF 2016 Unknown [employer] [id number] Unknown [id number] Unknown [id number] Unknown [id number] Unknown [id number] Unknown [id number] Social History Date Type Detail Facility [facility] Work Phone: Start: 1965 Sex Assigned At Female [facility] Work Phone: Start: 01-29-2014 [facility] Start: 10-25-2023 End: 11-19-2024 Alcohol intake Ex-drinker (finding) [facility] Start: 10-25-2023 End: 11-19-2024 History of Social function [facility] Start: 10-25-2023 End: 11-19-2024 Tobacco use panel [facility] National Score (1-10 0), lower number is lower risk 48 [facility] Start: 1965 Sex Assigned At Not on file [facility] Functional Status Date Assessment Result Facility 10-28-2014 Are you deaf, or do you have serious difficulty hearing No 10/28/2014 6:33 PM EDT Kaitlin Dominguez LPN No [facility] 10-28-2014 Are you blind, or do you have serious difficulty seeing, even when wearing glasses No 10/28/2014 6:33 PM EDT Kaitlin Dominguez LPN No [facility] 10-28-2014 Do you have serious difficulty walking or climbing stairs No 10/28/2014 6:33 PM EDT Kaitlin Dominguez LPN No [facility] 10-28-2014 Do you have difficul ty dressing or bathing No 10/28/2014 6:33 PM EDT Kaitlin Dominguez LPN No [facility] 10-28-2014 Because of a physica l, mental, or emotional condition, do you have difficulty doing errands alone such as visiting a physician's office or shopping No 10/28/2014 6:33 PM EDT Kaitlin Dominguez LPN No [facility] Mental Status Date Assessment Result Facility 10-28-2014 Because of a physica l, mental, or emotional condition, do you have serious difficulty concentrating, remembering, or making decisions No 10/28/2014 6:33 PM EDT Kaitlin Dominguez LPN No [facility] Clinical Notes 10-25-2023 to 11-19-2024 Patient InstructionsNorma Lerma APRN.[facility] - 11/19/2024 7:58 AM EDTTelephone Encounter - Tierra Grimaldo RN - 08/13/2024 8:35 AM Norma Nielsen APRN.[facility] - 06/20/2024 8:56 AM EST Note Date & Type Note Facility 11-19-2024 Instructions Norma Lerma APRN.[employer] FABRICATOR - 11/19/2024 8:20 AM EDT Calcium and Vitamin D Supplementation For more information:My [facility] Osteopenia Calcium Age Recommended Daily [...] physical activity (or a combination of both). [employer]ne[employer] (ACOG) and several other major osteoporosis guideline groups recommend screening for osteoporosis with Dual-energy X-ray Absorptiometry (DXA) in all postmenopausal documented in this encounter [facility] 11-19-2024 Note HNO ID: [id number] Author: NORMA LERMA APRN.ZEE Service: ? Author Type: Nurse Practitioner Type: Progress Notes Filed: 11/19/2024 08:21 Note Text: [employer] offered: Patient declines. Arelis is a 59 [...] OB History No obstetric history on file. Brush Head Maker History LMP: 09/12/2019, Postmenopausal Age at Menarche: 16 Age at First : Age at Menopause: Brush Head Maker History Comments: Sexual Activity: Yes; Male Contraception: [...] discussed with the Patient or Patient's Authorized Firestop/Containment Worker. As applicable, any other physician, advance practice provider, medical student, or other health professional student that will be observing or involved in the sensitive examination for educational or training purposes was discussed with the Patient or Authorized Firestop/Containment Worker. The Patient or Authorized Firestop/Containment Worker has agreed to proceed with the sensitive [...] external genitalia normal, normal Bartholin's glands, urethra, [place]'s glands, no vulvar lesions, no cervical lesions, [...] MG/24 HR WEEKLY TRANSDERMAL PATCH Norma Lerma APRN.[employer] PANELS FABRICATOR [facility] 11-19-2024 History of Presen t illness Narrative [employer] offered: Patient declines. Arelis is a 59 [...] OB History No obstetric history on file. Brush Head Maker History LMP: 09/12/2019, Postmenopausal Age at Menarche: 16 Age at First : Age at Menopause: Brush Head Maker History Comments: Sexual Activity: Yes; Male Contraception: [...] discussed with the Patient or Patient's Authorized Firestop/Containment Worker. As applicable, any other physician, advance practice provider, medical student, or other health professional student that will be observing or involved in the sensitive examination for educational or training purposes was discussed with the Patient or Authorized Firestop/Containment Worker. The Patient or Authorized Firestop/Containment Worker has agreed to proceed with the sensitive [...] external genitalia normal, normal Bartholin's glands, urethra, [place]'s glands, no vulvar lesions, no cervical lesions, [...] MG/24 HR WEEKLY TRANSDERMAL PATCH Norma Lerma APRN.[employer]OWER DO[employer] PANELS FABRICATOR documented in this encounter [facility] 08-13-2024 Telephone encounter Note Patient notified. Tierra Grimaldo RN [facility] 08-13-2024 Miscellaneous Notes Patient notified. Tierra Grimaldo RN Not a common side effect with HRT. However, HRT can cause increased risk of blood clots so needs to be evaluated by PCP or go to ER. Norma Lerma APRN.CNP Patient asking if HRT is causing her [...] Tierra Grimaldo RN documented in this encounter [facility] 08-13-2024 Telephone encounter Note Not a common side effect with HRT. However, HRT can cause increased risk of blood clots so needs to be evaluated by PCP or go to ER. Norma Lerma APRN.CNP [facility] 08-12-2024 Telephone encounter Note Patient [...] when she returns to the office. Tierra Grimaldo, RN [facility] 08-04-2024 Telephone encounter Note Patient notified and voiced understanding. Patient states she will call and schedule and appointment if she feels is needed. Prisca Marin RN [facility] 08-04-2024 Miscellaneous Notes Patient notified [...] tape but this is not practical for embossing machine tender use. Patient asking if there is another patch available? Or recommendations for people sensitive to the adhesive? Respond to patient by jaquan message documented in this encounter [facility] 08-04-2024 Telephone encounter Note I recommend rotating application site if she isn't already. Unfortunately, this is a common side effect of patch. I recommend appointment to discuss. Norma Lerma APRN.CNP [facility] 08-04-2024 Telephone encounter Note Patient called stating that she was prescribed the estradiol patch 05/2024 and is having itching in area where adhesive is. Patient tried removing the adhesive and using tape but this is not practical for mcc use. Patient asking if there is another patch available? Or recommendations for people sensitive to the adhesive? Respond to patient by Azteq Mobile message [facility] 06-20-2024 Note HNO ID: [id number] Author: NORMA LERMA APRN.ZEE Service: ? Author Type: Nurse Practitioner Type: Progress Notes Filed: 06/20/2024 09:10 Note Text: OGI VIRTUAL VISIT Virtual limitations reviewed with patient, as well as possible need to travel to have diagnostic services. Patient voiced understanding. Patient seen on HelloFresh Video Visit platform. Location of patient: [place] I have communicated my name and active licensure. The patient's identity and physical location were verified at the time of this visit. Either the patient or their legal customer field representative has been informed of the risks [...] Continue improving diet and exercise Norma Lerma APRN.ZEE I spent a total of 15 minutes on the date of the service which included preparing to see the patient, [id number] patient care, completing clinical documentation, obtaining and/or reviewing separately obtained history, and communicating results to the patient/family/caregiver. [facility] 06-20-2024 History of Presen t illness Narrative OGI VIRTUAL VISIT Virtual limitations reviewed with patient, as well as possible need to travel to have diagnostic services. Patient voiced understanding. Patient seen on HelloFresh Video Visit platform. Location of patient: [place] I have communicated my name and active licensure. The patient's identity and physical location were verified at the time of this visit. Either the patient or their legal customer field representative has been informed of the risks [...] which included preparing to see the patient, xqhv-oy-[id number] patient care, completing clinical documentation, obtaining and/or reviewing separately obtained history, and communicating results to the patient/family/caregiver. documented in this encounter [facility] 05-23-2024 Telephone encounter Note Patient notified. F/u appointment scheduled. Speedy Soares RN [facility] 05-23-2024 Miscellaneous Notes Patient notified. F/u appointment scheduled. Speedy Soares RN Left message to call office Please notify patient: Elevated fasting glucose and elevated cholesterol. First line therapy is improving diet and exercise. Follow up with me in 4 weeks to assess HRT or sooner as needed. Norma Lerma APRN.CNP documented in this encounter [facility] 05-23-2024 Telephone encounter Note Left message to call office [facility] 05-23-2024 Telephone encounter Note Please notify patient: Elevated fasting glucose and elevated cholesterol. First line therapy is improving diet and exercise. Follow up with me in 4 weeks to assess HRT or sooner as needed. Norma Lerma APRN.CNP [facility] 05-21-2024 Instructions Norma Lerma APRN.CNP - 05/21/2024 9:21 AM EST This is from the [facility] website: Placing the patch on your skin [...] in the toilet documented in this encounter [facility] 05-21-2024 Note HNO ID: [id number] Author: NORMA LERMA APRN.CNP Service: ? Author [...] OB History No obstetric history on file. Brush Head Maker History LMP: 09/12/2019, Postmenopausal Age at Menarche: Age at First : Age at Menopause: Brush Head Maker History Comments: Sexual Activity: Yes; Male Contraception: [...] weeks or sooner as needed. Norma Lerma APRN.ZEE Medical Decision Making: Problems: Low: Stable chronic illness Data: Unique test(s) ordered: 3+ Risk: Low: Low risk from testing/treatment Moderate: Drug management Medical Decision Making Level: 4 - Moderate [facility] 05-21-2024 History of Presen t illness Narrative [...] OB History No obstetric history on file. Brush Head Maker History LMP: 09/12/2019, Postmenopausal Age at Menarche: Age at First : Age at Menopause: Brush Head Maker History Comments: Sexual Activity: Yes; Male Contraception: [...] 4 - Moderate documented in this encounter [facility] 05-12-2024 Telephone encounter Note Patient notified and voiced understanding, appointment scheduled. Prisca Marin RN [facility] 05-12-2024 Miscellaneous Notes Patient notified [...] Prisca Marin RN documented in this encounter [facility] 05-12-2024 Telephone encounter Note Left message for patient to call office. Carolina Menendez RN [facility] 05-12-2024 Telephone encounter Note Needs appointment to discuss this Norma Lerma APRN.CNP [facility] 05-12-2024 Telephone encounter Note Patient [...] with success. Please address. Prisca Marin RN [facility] 10-25-2023 Instructions Norma Lerma APRN.[facility] - 10/25/2023 7:49 AM EDT Images from the original note were not included. Menopause Resources: Wholes[employer]areHormone/Menopause https://thredUP/help-in-a -xgbuf-hllpo-rhs-uknrz-wuc-thnv wa-splskhdacn-joakguzs/ [facility] www.hormone.org [place] [employer] 779-965-3181 www.menopause.org Menopause and Me https://www.menopauseandme.co.u k/en-gb Red [...] hot flashes and has been approved by [place] [employer] [place] for only 6 months of use, however has NOT been well studied in the [place] for embossing machine tender effects AND THERE HAVE BEEN REPORTS OF [...] risk of heart disease. Consider having an [facility] [place] test for further cardiac risk assessment [...] of symptoms of vaginal atrophy and the episcopal of the vagina's epithelial lining and pH -- hormone free. In bpcc-ev-tgjl clinical trials, Revaree performed as well as [...] some patients. Lubricants and moisturizers list The dyvz-odi-tclryaf vaginal moisturizer and lubricant products can be [...] in any drugstore or online. Also, many [employer] stores do carry high-quality lubricant products. VAGINAL [...] lube Replens Silky Smooth Pulse Aloe-ahh Wet [place] RADHA Premium Personal Lubricant PINK Silicone Lubricant [...] vaginal moisturizer makes them feel more comfortable. Dining Car Conductor beware: many lubricants are labeled as moisturizers [...] also be applied externally for comfort. [place] Aloe [place]: Many people are allergic to aloe, so keep this in mind with products like this that have aloe in it. Medicine Mama s V magic: Not much medical studies on this, but many patients swear by it, has oil, beeswax and honey in it- best used externally only. documented in this encounter [facility] 10-25-2023 History of Presen t illness Narrative Arelis is a 58 year old No obstetric history on file. who presents for an annual gynecologic exam with complaints, menopausal symptoms, with the most bothersome symptoms being hot flashes and night sweats. Has been caring for parents/in laws. She works at [employer]. Postmenopausal: Yes since age 55 HRT use: [...] OB History No obstetric history on file. Brush Head Maker History LMP: 10/14/2014, Having periods Age at Menarche: Age at First : Age at Menopause: Brush Head Maker History Comments: Sexual Activity: Not Asked; No [...] external genitalia normal, normal Bartholin's glands, urethra, [place]'s glands, no vulvar lesions, no cervical lesions, [...] information on menopause symptoms provided Norma Lerma APRN.ZEE documented in this encounter [facility] Evaluation note No assessment inform ation available [facility] Work Phone: Evaluation note Diagnosis Encounter for [...] sweats Generalized hyperhidrosis [facility] Diagnosis Menopausal symptoms- Primary Symptomatic menopausal or female climacteric states [facility] Diagnosis Hormone replacement therapy (postmenopausal)- Primary Need for prophylactic hormone replacement therapy (postmenopausal) Menopausal symptoms Symptomatic menopausal or female climacteric states Hyperlipidemia, unspecified hyperlipidemia type documented [facility] this [facility] Diagnosis Encounter for gynecological examination (general) (routine) without abnormal findings- Primary Encounter for screening mammogram for breast cancer Hot flashes Symptomatic menopausal or female climacteric states documented [facility] this [facility])* Diagnostic Procedure Only (Routine) - Pending Review Specialty Diagnoses / Procedures Referred By Jakob harris Referred To Contact [facility] Diagnoses Encounter for screening mammogram for breast cancer Procedures SEAN SCREENING SCREENING MAMMOGRAPHY BI 2-VIEW BREAST INC Norma Chirinos APRN.CNP [address] [place] [address] [facility] [address] [place] [place] [address] Referral ID Status Reason Start Date Expiration Date Visits Requested Visits Authorized [id number] Pending Review Auto-Generat ed Referral 10/25/2023 11/23/2024 1 1 [facility] Advance Directives No Advanced Directives Records Found Advance Directive Response Recorded Date/ Time Living Will No February 21 11:05am Power of Contracts Manager No February 21, 2017 11:05am Summary Purpose [...] or prosecute any alcohol or drug abuse patient.[facility] the event this information is protected by the Federal Confidentiality of Alcohol and Drug Abuse Patient Records regulations: The Federal rules restrict any use of the information to criminally investigate or prosecute any alcohol or drug abuse patient.[facility] the event this information is protected by the Federal Confidentiality of Alcohol and Drug Abuse Patient Records regulations: The Federal rules restrict any use of the information to criminally investigate or prosecute any alcohol or drug abuse patient.[facility] the event this information is protected by the Federal Confidentiality of Alcohol and Drug Abuse Patient Records regulations: The Federal rules restrict any use of the information to criminally investigate or prosecute any alcohol or drug abuse patient.[facility] the event this information is protected by the Federal Confidentiality of Alcohol and Drug Abuse Patient Records regulations: The Federal rules restrict any use of the information to criminally investigate or prosecute any alcohol or drug abuse patient.[facility] the event this information is protected by the Federal Confidentiality of Alcohol and Drug Abuse Patient Records regulations: The Federal rules restrict any use of the information to criminally investigate or prosecute any alcohol or drug abuse patient.[facility] Center[facility] the event this information is protected by the Federal Confidentiality of Alcohol and Drug Abuse Patient Records regulations: The Federal rules restrict any use of the information to criminally investigate or prosecute any alcohol or drug abuse patient.[facility] the event this information is protected by the Federal Confidentiality of Alcohol and Drug Abuse Patient Records regulations: The Federal rules restrict any use of the information to criminally investigate or prosecute any alcohol or drug abuse patient.[facility] Reason for Visit (unrecogniz ed section and content) Reason Comments Well Woman Reason Comments hot flashes Reason Comments Discussion HRT Reason Comments Results Reason Comments Symptomatic Menopause Reason Comments Patient Update Reason Comments Patient Question Care Teams (unrecognized sec tion and content) Scrap Preparer Relationship Specialty Start Date End Date Steven Gillette MD [address] [place] [id number] PCP - General Family Medicine 11/19/24 INFORMATION SOURCE (unrecogn ized section and content) DATE CREATED AUTHOR 11/23/2024 [facility] DATE CREATED AUTHOR 'S ORGANIZ ATION 03/26/2025 [facility] FOR RECORDS PERTAINING TO PATIENTS WHO ARE [...] BE BASED ON THE PRIMARY CLINICAL RECORDS. [facility]. provides no warranty or guarantee of the accuracy or completeness of information in this document.
--- NOTE | 2025-04-08 13:54 | PRE.ANES_ITS ---
ASA Classification* ASA Classification ASA Classification: 2 (Lung mass found on CT scan - bronch to biopsy ) Assessment & Plan Anesthesia* Anesthesia Assessment Anesthesia Assessment: Discussed sedation and/or anesthesia options, risks, benefits, and alternatives with patient/parents/legal guardian/POA. Questions invited. The patient/parents/legal guardian/POA seems to understand and agrees to proceed with anesthesia plan. Reviewed the physical assessment, medical history, allergy history and patient home medications list prior to surgery/procedure/anesthetic and documented any changes. Performed airway and anesthesia risk assessments. Anesthesia Type Anesthesia Type: MAC History Source History Obtained from:: Patient and Chart Anesthesia Focused Assessment* Temperature: 99 F Pulse Rate: 118 Blood Pressure: 97/69 Respiratory Rate: 16 Pulse Ox: 100 Oxygen Delivery Method: Room Air Airway Assessment Mouth opens: >3 cm Mallampati Score: II Teeth Condition: Intact Neck Range of motion (ROM): Full ROM Labs Anesthesia Preop lab: CBC WBC, (4.4-11.0) 8.0 K/mm3 03/26/25, 05:14 RBC, (4.2-5.4) 3.61 M/mm3 L 03/26/25, 05:14 Hgb, (12.0-15.0) 10.9 g/dL L 03/26/25, 05:14 Hct, (37-47) 33.7 % L 03/26/25, 05:14 Plt Count, (150-450) 428 K/mm3 03/26/25, 05:14 CHEMISTRY Potassium, (3.3-5.1) 4.1 mmol/L 03/26/25, 05:14 Sodium, (133-145) 141 mmol/L 03/26/25, 05:14 BUN, (4-19) 16 mg/dL 03/26/25, 05:14 Creatinine, (0.70-1.20) 0.54 mg/dL L 03/26/25, 05:14 Glucose, (70-99) 88 mg/dL 03/26/25, 05:14 TSH, (0.358-3.74) 1.42 uIU/mL 02/20/17, 12:31 COAG PT, (11.7-14.9) 15.5 SECONDS H 03/25/25, 18:00 HCG, Quant, (<9 non-preg) < 1 mIU/mL 07/24/16, 16:2 4 Pre-Assessment Diagnosis/Proposed Procedure Planned Operative Procedure(s): BRONCHOSCOPY Anesthesia History 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 When Was Last Pacemaker Check QUESTION #4 FULL TEXT: You/Your Family Experience fever (hyperthermia) with Anesthesia Last Oral Intake Last Oral intake: Last Oral Intake NPO since 12:30 04/08/25 13:19 Meds taken in AM with sips of Yes 04/08/25 13:19 water? Meds patient instructed to take am of surgery PONV PONV - drill setup operator: PONV - drill setup operator Female Yes 04/06/25 16:01 HX of Motion Sickness Yes 04/06/25 16:01 HX of N/V After Surgery No 04/06/25 16:01 Non-Smoker Yes 04/06/25 16:01 Duration of Surgery greater Yes 04/06/25 16:01 than 60 minutes Number of Risk Factors 4 04/06/25 16:01 PONV Score Severe Risk 04/06/25 16:01 Height & Weight Height & Weight: Anesthesia: Height & Weight Height 5 ft 4 in 04/08/25 13:19 Weight: 56 kg 04/08/25 13:19 Body Mass Index (BMI) 21.2 04/08/25 13:19 Respiratory Assessment Respiratory Assessment - drill setup operator: Respiratory Tract Infection Hx - drill setup operator Hx Respiratory Tract Infection No 04/06/25 16:01 STOP Sleep Apnea STOP Sleep Apnea - drill setup operator: STOP Sleep Apnea - drill setup operator Hx Hypertension No 04/06/25 16:01 Hx Sleep Apnea No 04/06/25 16:01 CPAP BIPAP Do you snore loudly (louder No 04/06/25 16:01 than talking or can be heard Do you often feel tired/ No 04/06/25 16:01 fatigued/ sleepy during daytime? Has anyone observed you stop No 04/06/25 16:01 breathing during sleep? STOP Results Negative 04/06/25 16:01 QUESTION #5 FULL TEXT : Do you snore loudly (louder than talking or can be heard through closed doors)? 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 Specify any problems Hx of Preganancy in last 3 No 04/06/25 16:01 Months Nurse Filling Out Transfusion JULITO 04/06/25 16:01 & Questions: Date: 04/06/25 04/06/25 16:01 Time: 16:04 04/06/25 16:01 Patient unable to answer at this time (ie. confused, unrespo /Reproduction History /Reproductive History - drill setup operator: /Reproductive Hx- drill setup operator Hx Now No 04/06/25 16:01 Gestational Age (in weeks): EDC: Hx Hx Para Hx Section SAB No 04/06/25 16:01 Does the father of the baby or his family experience fever w Father of the baby Malignant Hypertension history comment Active Medications Active Medications: Current Medications Generic Name Dose Route Start Last Admin Trade Name Freq PRN Reason Stop Dose Admin Lactated Ringer's 1,000 mls @ 15 mls/hr 04/08/25 13:00 04/08/25 13:15 IV 15 mls/hr .Q48H AARON Administration PFSH Medical History (Updated 04/06/25 @ 16:10 by Sumi Avelar) Anxiety High cholesterol Migraine headache Chronic cough Non-smoker History of irregular heartbeat Iron deficiency anemia Chronic anemia Home Medications ?Medication ?Instructions ?Recorded ?Last Taken ?Type estradiol 0.025 mg/24 hr weekly 1 patch topical QWEEK hormes 03/25/25 Unknown History transdermal patch progesterone micronized 100 mg 100 mg PO QHS hormones 03/25/25 Unknown History capsule clonazepam 0.5 mg tablet 0.5 mg PO BID PRN anxiety Unknown History multivitamin 1 tab PO DAILY 04/06/25 Unkn own History vitamin B complex (Vitamins B 1 cap PO DAILY 04/06/25 Unknown History Complex capsule) Allergy/AdvReac Type Severity Reaction Status Date / Time No Known Allergies Allergy Verified 04/08/25 13:20 Family History Father CAD (coronary artery disease) Heart disease Hypertension Myocardial infarction Mother PAF (paroxysmal atrial fibrillation) Family History no significant family his Surgical History (Updated 04/06/25 @ 16:01 by Sumi Avelar) History of wisdom tooth extraction History of dilation and curettage S/P S/P breast lumpectomy Social History (Updated 03/25/25 @ 21:[address] Darlin Garner MD) household members: spouse Smoking Status: Never smoker second hand exposure: Yes alcohol intake: never substance use type: does not use Review of Systems (Anesthesia) ROS Narrative System reviewed and no additional complaints, except as documented. Physical Exam Const alert, oriented x3 and average body habitus Resp normal respiratory effort, normal air movement and clear to auscultation bilaterally Cardio regular rate, regular rhythm and no murmurs; Negative for diaphoretic
[2025-04-08] MEDS: Phenylephrine 0.25% 15 ML NASAL.SRY 15 SPRAY NASAL (14:50)
[2025-04-08] MEDS: Lidocaine Jelly 2% 20 ML Syringe (URO-JET) 1 APPLIC (14:54)
[2025-04-08] MEDS: Lidocaine 1% (5 ml sdv) 5 ML Vial 8 ML IV (14:54)
[2025-04-08] MEDS: Lidocaine 2% (5ml sdv) 5 ML VIAL.MPF (14:54)
[2025-04-08] MEDS: Epinephrine (1 mg/ml) 1 MG/ML VIAL (15:10)
[2025-04-08] MEDS: 0.9% Normal Saline (Pres. free 10 ML Vial (15:10)
[2025-04-08] MEDS: Heparin Injection (Vial) 5,000 UNIT/ML VIAL 5000 UNIT (15:22)
--- NOTE | 2025-04-08 15:34 | PCM.POST.ANE ---
Anesthesia: Postop Eval I Current Vital Signs Temperature: 97.8 F Pulse Rate: 99 Blood Pressure: 102/81 Respiratory Rate: 18 Pulse Ox: 98 Assessment Airway patent: Yes Spontaneous unlabored respirations: Yes nausea: No Vomiting: No Anesthesia Complication: No Fluid Hydration Crystalloid volume administer (ml): 600 Total IV fluid infused: 600 Progress Note Anesthesia document: Postop Eval 1 completed: Yes
--- NOTE | 2025-04-08 15:43 | OP.BRONCH_ITS ---
Patient Name: Arelis Pearce Procedure Date: 04/08/2025 2:29 PM Date of : 1965 Age: 59 Procedure: Bronchoscopy Indications: Left lower lobe mass, Upper airway obstruction Providers: Luis Kiser MD Referring MD: Steven Redman MD Medicines: Lidocaine applied to nares and subglottic space Complications: No immediate complications Procedure: Pre-Anesthesia Assessment: - A History and Physical has been performed. The patient's medications, allergies and sensitivities have been reviewed. - The risks and benefits of the procedure and the sedation options and risks were discussed with the patient. All questions were answered and informed consent was obtained. After I obtained informed consent, the scope was passed under direct vision. Throughout the procedure, the patient's blood pressure, pulse, and oxygen saturations were monitored continuously. The bronchoscope was introduced through the left nostril and advanced to the right lung only. The procedure was accomplished without difficulty. The patient tolerated the procedure fairly well. The total duration of the procedure was 30 minutes. Moderate Sedation: An independent trained observer was present and continuously monitored the patient. Findings: The nasopharynx/oropharynx appears normal. The larynx appears normal. The vocal cords appear normal. The subglottic space is normal. The trachea is of normal caliber. The oma is sharp. The tracheobronchial tree of the right lung was examined to at least the first subsegmental level. Bronchial mucosa and anatomy in the right lung are normal; there are no endobronchial lesions, and no secretions. Left Lung Abnormalities: Extrinsic compression was found in the left lower lobe. The airway lumen is about 90% occluded. The lesion was not traversed. Transbronchial biopsies of a mass were performed in the superior segment of the left lower lobe using forceps and sent for histopathology examination. Transbronchial biopsy technique was selected because the sampling site was not visible endoscopically. Three biopsy passes were performed. Three biopsy samples were obtained. The compression was 5 cm below the main oma. The tracha was shifted left, not midlline oma. Cyto brush from same site. Not able to visualise the lesion but tissue taken just beyond closure with the forceps stopping 2-3 cm below closure. Epi used on the side, pre- bx do to blood see photo before sample. Cold saline used after. Scope held in position 5 min after all bx and wash without bleed evident. Clot over LLL opening. Impression: - Left lower lobe mass - Upper airway obstruction - The airway examination of the right lung was normal. - Extrinsic compression was found in the left lower lobe secondary to a mass. - An endobronchial biopsy was performed. Diagnosis Code(s): --- Professional --- R91.8, Other nonspecific abnormal finding of lung field J98.4, Other disorders of lung MD Luis Madrid MD 04/08/2025 3:43:21 PM This report has been signed electronically. Number of Addenda: 0 Note Initiated On: 04/08/2025 2:29 PM
[2025-04-08 16:15] LABS: Cytology, Body Fluid / CSF SEE PATHOLOGY REPORT
--- NOTE | 2025-04-08 16:57 | SUR.PHASEII ---
Patient nauseous after bronch, in phase 2. dr. black ordered 4mg zofran x 1, given.
--- NOTE | 2025-04-08 17:02 | POSTOPAN2_ITS ---
Anesthesia Postop Eval I Sum Postop Eval Completion status Anesthesia document: Postop Eval 1 completed: Yes Anesthesia Postop Eval I Summary Anesthesia Postop Eval I Summary: Anesthesia Postop Eval I: Assessment Summary Airway patent Yes 04/08/25 15:34 [email or web address] Spontaneous unlabored Yes 04/08/25 15:34 [email or web address] [email or web address] respirations Mental status nausea No 04/08/25 15:34 [email or web address] Vomiting No 04/08/25 15:34 [email or web address] [email or web address] Anesthesia Postop Eval I: Fluid Summary Crystalloid volume administer 600 04/08/25 15:34 [email or web address] (ml) Colloids volume administered ( ml) Blood Product volume administered (ml) Total IV fluid infused 600 04/08/25 15:34 [email or web address] Anesthesia Postop Eval I: Summary Notes Anesthesia Complication No 04/08/25 15:34 [email or web address] Anesthesia Complication Comment: Post-operative progress note Anesthesia: Postop Eval II Evaluation Mental status: Awake Pain Level: 0 nausea: No Vomiting: No Complications Anesthesia Complication: No
--- NOTE | 2025-04-08 17:02 | PCM.POSTANE2 ---
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 Spontaneous unlabored Yes 04/08/25 15:34 PASSENGER [email or web address] respirations Mental status nausea No 04/08/25 15:34 PASSENGER [email or web address] Vomiting No 04/08/25 15:34 PASSENGER [email or web address] Anesthesia Postop Eval I: Fluid Summary Crystalloid volume administer 600 04/08/25 15:34 PASSENGER [email or web address] (ml) Colloids volume administered ( ml) Blood Product volume administered (ml) Total IV fluid infused 600 04/08/25 15:34 PASSENGER 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
== END 2025-04-08 17:09 | disposition home or self-care (01) ==
LOC: EN 12:53 → AC 12:54
PROVIDERS: PCP Family Medicine; Referring Provider Family Medicine; Visit Provider Internal Medicine Pulmonary Disease
PROC: 0BJ08ZZ Inspection of Tracheobronchial Tree, Via Natural or Artificial Opening Endoscopic (ICD-10-PCS; CPT 31622; principal; 2025-04-08 13:45)
DX: C34.32 Malignant neoplasm of lower lobe, left bronchus or lung (principal); J98.4 Other disorders of lung; E78.00 Pure hypercholesterolemia, unspecified
CPT/HCPCS: 31628; 88108; 88161; 88305; 88307; 88312; 88313; 88341; 88342; J2405

== ENCOUNTER → 2025-04-21 | Outpatient (CLI) | payer OTHER, SELFPAY ==
--- NOTE | 2025-04-21 11:30 | PET_ITS ---
PROCEDURE: PET/CT TUMOR BASE -THIGH INIT 04/21/2025 REASON FOR EXAM: 60 y/o F with LUNG TECHNIQUE: Procedure Code: [id number] Modality: PT Procedure: PET/CT TUMOR BASE -THIGH INIT After intravenous injection of 12.5 millicuries of FDG and a standard uptake period, a noncontrast CT scan, followed by a PET scan were acquired along the length of the body from the base of the skull to the mid thighs. The noncontrast helical CT imaging was performed without breath hold, for attenuation correction of PET images and anatomic correlation, but not for primary interpretation, as it is not of the standard diagnostic quality. Images were reviewed in the axial, coronal and sagittal planes. RADIATION DOSE SUMMARY: Effective Dose: Approximately 7 mSv for a standard whole-body PET scan Organ Doses: Varies by organ, with higher doses typically to the bladder, liver, and brain CTDI: 6.2 mGy. DLP: 528.5 mGy cm. COMPARISON: COMPARISON FROM CT, PET OR OTHER PERTINENT EXAMS: CTA chest with and without contrast, 03/25/2025. FINDINGS: Physiologic uptake: There may be expected metabolic uptake within the brain, tongue and floor of the mouth and larynx/vocal cords, heart, may (many normal individuals have hilar uptake in less than 3 nodes with mildly avid hilar nodes less than 2.7 SUV), liver and spleen, system, and GI tract and symmetric muscle uptake. FDG AVID AND NON-AVID LESIONS. Reported avid SUV values (g/mL) are maximum SUV. Head and neck: There is a normal distribution of FDG activity in the visualized brain parenchyma. There is normal uptake within the soft tissues of the neck and glandular structures. There is no hypermetabolic lymphadenopathy. Chest: There is a large partially loculated left pleural effusion, max SUV 1.8. There is a central mass in the left lung extending into the lower lobe, measuring 8.8 x 6.9 x 5.3 cm, max SUV 16.2. There is mediastinal invasion with the mass abutting the left side of the descending thoracic aorta and extending between the descending thoracic aorta and the pericardium. There are multiple pleural-based hypermetabolic nodules in the left bhavana thorax, including the diaphragmatic surface, consistent with metastatic disease, max SUV 14.9. There is obstructive atelectasis of a portion of the upper lobe of the left lung, predominantly the apical posterior segment. There is an area of soft tissue density in the left bhavana thorax, corresponding to a portion of the lower lobe, demonstrating no FDG activity. This is of uncertain etiology, as atelectatic lung usually demonstrates increased activity relative to normal lung. The heart size is normal. There is no pericardial effusion. There is no calcific vascular disease of the thoracic aorta or coronary arteries evident. There is no hypermetabolic mediastinal or axillary lymphadenopathy. Abdomen and pelvis: There is a 1.6 x 1.2 cm gastrohepatic lymph node demonstrating hypermetabolic activity, max SUV 4.8. There is a 1.8 x 1.6 cm focus of hypermetabolic activity within the stomach, max SUV 9.0. There is no significant calcific vascular disease of the abdominal aorta. There is sigmoid diverticulosis without diverticulitis. Musculoskeletal: There are no suspicious hypermetabolic osteolytic or osteosclerotic lesions. Uptake time: 60 minutes. Mediastinal blood pool: Max SUV, 2.6 Blood glucose: 86 BMI: 22.0 PET/PET/CT Tumor Base -Thigh Init IMPRESSION: 1. Large central mass on the left extending predominantly into the lower lobe. The mass also invades the mediastinum as described. 2. There is a obstructive atelectasis of portions of both the upper and lower lobes of the left lung. 3. There are multiple hypermetabolic pleural-based nodules consistent with met astatic disease. There is a large partially loculated left pleural effusion. 4. There is metastatic disease inferior to the diaphragm involving the gastro hepatic lymph nodes and the stomach wall. 5. Other findings as noted. Reading Location: [place] [id number]
== END | disposition home or self-care (01) ==
LOC: ONC 10:56
PROVIDERS: PCP Family Medicine; Referring Provider Nurse Practitioner Family; Visit Provider Nurse Practitioner Family
DX: C34.32 Malignant neoplasm of lower lobe, left bronchus or lung (principal)
CPT/HCPCS: 78815; A9552

== ENCOUNTER → 2025-05-04 | Outpatient (CLI) | payer OTHER, SELFPAY ==
--- NOTE | 2025-05-04 12:42 | RAD_ITS ---
PROCEDURE: CHEST PA AND LATERAL 05/04/2025 REASON FOR EXAM: PLEURAL EFFUSION TECHNIQUE: Procedure Code: RADCXR Modality: DX Procedure: CHEST PA AND LATERAL COMPARISON: 04/06/2025 FINDINGS: Interval increased left pleural effusion now moderate in volume. No focal consolidation. No pneumothorax. Cardiac silhouette is within normal limits. No acute fractures. RAD/Chest PA and Lateral IMPRESSION: Interval increased left pleural effusion now moderate in volume. No focal conso lidation. Reading Location: [id number]
== END | disposition home or self-care (01) ==
LOC: MTRAD 12:41
PROVIDERS: PCP Family Medicine; Referring Provider Family Medicine; Visit Provider Family Medicine
DX: J90 Pleural effusion, not elsewhere classified (principal)
CPT/HCPCS: 71046

== ENCOUNTER → 2025-05-06 | Outpatient (CLI) | payer OTHER, SELFPAY ==
--- NOTE | 2025-05-06 10:20 | MRI_ITS ---
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 TECHNIQUE: Procedure Code: [id number] Modality: MR Procedure: BRAIN W/WO CONTRAST Multiplanar and multisequence images were obtained. CONTRAST: Clariscan VOLUME: 12 mL COMPARISON: None available. FINDINGS: No acute infarct or hemorrhage. Nonspecific foci of periventricular and subcortical T2/FLAIR white matter hyperintensities in the cerebral hemispheres likely reflect chronic microvascular ischemic changes. No abnormal intracranial enhancement. No extra-axial fluid collection. No significant mass effect or herniation of the brain. The ventricular system and sulci/fissures are within expected limits of size and configuration for the patient's stated age. The basal cisterns are patent. The intracranial large vessel arterial flow voids are maintained. The mastoid air cells clear. The paranasal sinuses are predominately clear. The orbits are unremarkable. The calvarial bone marrow signal is within normal limits. MRI/Brain W/WO Contrast IMPRESSION: No evidence of intracranial metastatic disease. No acute infarct, hemorrhage, or significant mass effect. Reading Location: [id number]
--- OUTSIDE RECORDS SUMMARY | 2025-05-06 10:34 | XMS RPT_ITS | CCD ---
Author Organization [facility] Care Team Providers Care Salesperson [employer] Name Role Phone Unavailable Primary Care Provider UnavailSteven Nagy MD Primary Care Provider [phone] STEVEN GILLETTE Primary Care Unavailable NORMA LERMA Attending Unavailable SIDNEY, NORMA Attending Unavailable NORMA LERMA Referring Unavailable NORMA LERMA Attending Unavailable Gilson Cisneros Referring Unavailable Gilson Cisneros Attending Unavailable Steven Gillette Primary Care Unavailable Bernard SHANK CARRIER, Skylar Referring Unavailable Bernard SHANK CARRIER, Skylar Attending Unavailable Steven Gillette Primary Care [...] mouth once daily. Active 168 hr estradiol 0.90146 mg/hr transdermal system (7 sources) Estrogen Start: [...] #### [facility] [address] [place], [address] Absolute Neut 5.9 X10 3/uL Normal 2.0-7.7 [facility] Comment on above: Performed By: #### M 100.638 #### [facility] [address] [place], [address] Basophils/100 WBC (Bld) 0.4 % Normal 0-1 [facility] Comment on above: Performed By: #### M 100.638 #### [facility] [address] [place], [address] Eosinophils/100 WBC (Bld) 1.6 % Normal 0-5 [facility] Comment on above: Performed By: #### M 100.638 #### [facility] [address] [place], [address] Erythrocyte distribution width (RBC) [Ratio] 12.0 % Normal 11.6-14.6 [facility] Comment on above: Performed By: #### M 100.638 #### [facility] [address] [place], [address] Hematocrit (Bld) [Volume fraction] 33.7 % Low 37-47 [facility] Comment on above: Performed By: #### M 100.638 #### [facility] [address] [place], [address] Hemoglobin (Bld) [Mass/Vol] 10.9 g/dL Low 12.0-15.0 [facility] Comment on above: Performed By: #### M 100.638 #### [facility] [address] [place], [address] IG% 0.600 Normal 0.0-0.9 [facility] Comment on above: Result Comment: IG% - Immature Granulocytes (promyelocytes, myelocytes and metamyelocytes) > 1% indicates that a LEFT SHIFT is Present. Performed By: #### M 100.638 #### [facility] [address] [place], [address] Lymphocytes/100 WBC (Bld) 14.0 % Low 19-41 [facility] Comment on above: Performed By: #### M 100.638 #### [facility] [address] [place], [address] MCH (RBC) [Entitic mass] 30.2 pg Normal 27.0-32.0 [facility] Comment on above: Performed By: #### M 100.638 #### [facility] [address] [place], [address] MCHC (RBC) [Mass/Vol] 32.3 g/dL Normal 32-36 [facility] Comment on above: Performed By: #### M 100.638 #### [facility] [address] [place], [address] MCV (RBC) [Entitic vol] 93.4 fL Normal 81-99 [facility] Comment on above: Performed By: #### M 100.638 #### [facility] [address] [place], [address] Monocytes/100 WBC (Bld) 10.5 % High 0-10 [facility] Comment on above: Performed By: #### M 100.638 #### [facility] [address] [place], [address] Neutrophils/100 WBC (Bld) 72.9 % High 47-70 [facility] Comment on above: Performed By: #### M 100.638 #### [facility] [address] [place], [address] Nucleated RBC (Bld) [#/Vol] 0 10*3/uL Normal 0-5 [facility] Comment on above: Performed By: #### M 100.638 #### [facility] [address] [place], [address] Platelet mean volume (Bld) [Entitic vol] 8.6 fL Normal 6.2-12.0 [facility] Comment on above: Performed By: #### M 100.638 #### [facility] [address] [place], [address] Platelets (Bld) [#/Vol] 428 10*3/uL Normal 150-450 [facility] Comment on above: Performed By: #### M 100.638 #### [facility] [address] [place], [address] RBC (Bld) [#/Vol] 3.61 10*6/uL Low 4.2-5.4 [facility] Comment on above: Performed By: #### M 100.638 #### [facility] [address] [place], [address] RDW SD 41.5 fl Normal 35.1-43.9 [facility] Comment on above: Performed By: #### M 100.638 #### [facility] [address] [place], [address] WBC (Bld) [#/Vol] 8.0 10*3/uL Normal 4.4-11.0 [facility] Comment on above: Performed By: #### M 100.638 #### [facility] [address] [place], [address] LDHon 03-26-2025 LDH 293 U/L High 84-246 [facility] Comment on above: Performed By: #### M 100.638 #### [facility] [address] [place], [address] Legionella Antigen Urineon 05-26-2024 LEGU URINE, RANDOM Legionella Antigen result interpretation: L pneumo Ag Ur Ql Negative Presumptive negative for Legionella pneumophila serogroup 1 antigen in urine, suggesting no recent or current infection. Legionella Ag, Urine Negative (See interpretation below) Normal [facility] Comment on above: Performed By: #### M 300.4500, M300.4600 #### [facility] [address] [place], [address] RESPIRATORY PANEL MOLECULARo n 03-26-2025 RP PANEL [...] M 100.638 #### [facility] [address] [place], [address] Strep pneumoniae Antig(UR,CS F)on 03-26-2025 STPAG URINE [...] 300.4500, M300.4600 #### [facility] [address] [place], [address] CBC W/Diff, Automatedon 03-14 Absolute Lymph 1.05 X10 3/uL Normal 0.83-4.51 [facility] Comment on above: Performed By: #### M 300.4500, M300.4600 #### [facility] [address] [facility] [place], [address] Absolute Neut 8.2 X10 3/uL High 2.0-7.7 [facility] Comment on above: Performed By: #### M 300.4500, M300.4600 #### [facility] [address] [place], [address] Basophils/100 WBC (Bld) 0.3 % Normal 0-1 [facility] Comment on above: Performed By: #### M 300.4500, M300.4600 #### [facility] [address] [facility] [place], [address] Eosinophils/100 WBC (Bld) 0.6 % Normal 0-5 [facility] Comment on above: Performed By: #### M 300.4500, M300.4600 #### [facility] [address] [place], [address] Erythrocyte distribution width (RBC) [Ratio] 12.0 % Normal 11.6-14.6 [facility] Comment on above: Performed By: #### M 300.4500, M300.4600 #### [facility] [address] [place], [address] Hematocrit (Bld) [Volume fraction] 36.2 % Low 37-47 [facility] Comment on above: Performed By: #### M 300.4500, M300.4600 #### [facility] [address] [place], [address] Hemoglobin (Bld) [Mass/Vol] 11.7 g/dL Low 12.0-15.0 [facility] Comment on above: Performed By: #### M 300.4500, M300.4600 #### [facility] [address] [place], [address] IG% 0.600 Normal 0.0-0.9 [facility] Comment on above: Result Comment: IG% - Immature Granulocytes (promyelocytes, myelocytes and metamyelocytes) > 1% indicates that a LEFT SHIFT is Present. Performed By: #### M 300.4500, M300.4600 #### [facility] [address] [place], [address] Lymphocytes/100 WBC (Bld) 10.3 % Low 19-41 [facility] Comment on above: Performed By: #### M 300.4500, M300.4600 #### [facility] [address] [place], [address] MCH (RBC) [Entitic mass] 30.4 pg Normal 27.0-32.0 [facility] Comment on above: Performed By: #### M 300.4500, M300.4600 #### [facility] [address] [place], [address] MCHC (RBC) [Mass/Vol] 32.3 g/dL Normal 32-36 [facility] Comment on above: Performed By: #### M 300.4500, M300.4600 #### [facility] [address] [place], [address] MCV (RBC) [Entitic vol] 94.0 fL Normal 81-99 [facility] Comment on above: Performed By: #### M 300.4500, M300.4600 #### [facility] [address] [place], [address] Monocytes/100 WBC (Bld) 8.4 % Normal 0-10 [facility] Comment on above: Performed By: #### M 300.4500, M300.4600 #### [facility] [address] [place], [address] Neutrophils/100 WBC (Bld) 79.8 % High 47-70 [facility] Comment on above: Performed By: #### M 300.4500, M300.4600 #### [facility] [address] [place], [address] Nucleated RBC (Bld) [#/Vol] 0 10*3/uL Normal 0-5 [facility] Comment on above: Performed By: #### M 300.4500, M300.4600 #### [facility] [address] [place], [address] Platelet mean volume (Bld) [Entitic vol] 8.9 fL Normal 6.2-12.0 [facility] Comment on above: Performed By: #### M 300.4500, M300.4600 #### [facility] [address] [place], [address] Platelets (Bld) [#/Vol] 475 10*3/uL High 150-450 [facility] Comment on above: Performed By: #### M 300.4500, M300.4600 #### [facility] [address] [place], [address] RBC (Bld) [#/Vol] 3.85 10*6/uL Low 4.2-5.4 [facility] Comment on above: Performed By: #### M 300.4500, M300.4600 #### [facility] [address] [place], [address] RDW SD 41.7 fl Normal 35.1-43.9 [facility] Comment on above: Performed By: #### M 300.4500, M300.4600 #### [facility] [address] [place], [address] WBC (Bld) [#/Vol] 10.2 10*3/uL Normal 4.4-11.0 [facility] Comment on above: Performed By: #### M 300.4500, M300.4600 #### [facility] [address] [place], [address] CTA Chest W/WO Contraston CTA Chest W/WO Contrast [facility] Imaging Services [address] [place] [address] CTA Chest W/WO Contrast MR#: [id number] Acct: [id number] Name: ARELIS ADAN Rep #: [id number] : 1965 F 59 From: Antwon garcia MD PCP: Dr. Steven Gillette MD Status: REG CLI Study: CTA Chest W/WO Contrast Date of Exam: 03/25/25 Exam# [id number] Ordering Dr: Gilson Cisneros MD PROCEDURE: CTA [...] a large left pleural effusion. Reading Location: [place] [address] CC: Dr. Gilson Cisneros MD; Dr. Steven Gillette MD [place]: Signed Normal [facility] Comprehensive Metabolic Prof ndon 03-25-2025 Albumin [Mass/Vol] 3.6 g/dL Normal 3.5-5.0 [facility] Comment on above: Performed By: #### M 300.4500, M300.4600 #### [facility] [address] [place], [place], [address] Albumin/Globulin [Mass ratio] 0.8 {ratio} Low 0.9-2.4 [facility] Comment on above: Performed By: #### M 300.4500, M300.4600 #### [facility] [address] [place], [address] ALK PHOS 73 U/L Normal 35-104 [facility] Comment on above: Performed By: #### M 300.4500, M300.4600 #### [facility] [address] [place], [address] ALT [Catalytic activity/Vol] 17 U/L Normal <=34 [facility] Comment on above: Performed By: #### M 300.4500, M300.4600 #### [facility] [address] [place], [address] AST [Catalytic activity/Vol] 27 U/L Normal <=31 [facility] Comment on above: Performed By: #### M 300.4500, M300.4600 #### [facility] [address] [place], [address] Bilirubin [Mass/Vol] 0.33 mg/dL Normal 0.00-1.30 [facility] Comment on above: Performed By: #### M 300.4500, M300.4600 #### [facility] [address] [place], [address] BUN/CRE 29.7 RATIO High 10-20 [facility] Comment on above: Performed By: #### M 300.4500, M300.4600 #### [facility] [address] [place], [address] Calcium [Mass/Vol] 9.5 mg/dL Normal 7.6-11.0 [facility] Comment on above: Performed By: #### M 300.4500, M300.4600 #### [facility] [address] [place], [address] Chloride [Moles/Vol] 101 mmol/L Normal 98-108 [facility] Comment on above: Performed By: #### M 300.4500, M300.4600 #### [facility] [address] [place], [address] CO2 [Moles/Vol] 22.2 mmol/L Normal 21.0-32.0 [facility] Comment on above: Performed By: #### M 300.4500, M300.4600 #### [facility] [address] [place], [address] Creatinine [Mass/Vol] 0.65 mg/dL Low 0.70-1.20 [facility] Comment on above: Performed By: #### M 300.4500, M300.4600 #### [facility] [address] [place], [address] ECRCL 82.46 ml/min Normal 50-250 [facility] Comment on above: Performed By: #### M 300.4500, M300.4600 #### [facility] [address] [place], [address] GAP 16 High 5-15 [facility] Comment on above: Performed By: #### M 300.4500, M300.4600 #### [facility] [address] [place], [address] GFR/1.73 sq M.predicted among non-blacks MDRD (S/P/Bld) [Vol rate/Area] 103 mL/min/{1.73_m2} Normal >60 [facility] Comment on above: Result Comment: mL/m in/1.73m2 CKD-EPI Creatinine Equation (2020) Performed By: #### M 300.4500, M300.4600 #### [facility] [address] [place], [address] Globulin (S) [Mass/Vol] 4.3 g/dL High 2.2-4.2 [facility] Comment on above: Performed By: #### M 300.4500, M300.4600 #### [facility] [address] [place], [address] Glucose [Mass/Vol] 94 mg/dL Normal 70-99 [facility] Comment on above: Performed By: #### M 300.4500, M300.4600 #### [facility] [address] [place], [address] Potassium [Moles/Vol] 3.7 mmol/L Normal 3.3-5.1 [facility] Comment on above: Performed By: #### M 300.4500, M300.4600 #### [facility] [address] [place], [address] Sodium [Moles/Vol] 139 mmol/L Normal 133-145 [facility] Comment on above: Performed By: #### M 300.4500, M300.4600 #### [facility] [address] [place], [address] T PROT 7.9 g/dL Normal 5.9-8.4 [facility] Comment on above: Performed By: #### M 300.4500, M300.4600 #### [facility] [address] [place], [address] Urea nitrogen [Mass/Vol] 19 mg/dL Normal 4-19 [facility] Comment on above: Performed By: #### M 300.4500, M300.4600 #### [facility] [address] [place], [address] Emergency Department Summary on 03-25-2025 Emergency Department Summary [facility] Medical Records Department [address] [place] [address] Emergency Department Summary 03/25/25 MR#: [id number] Acct: [id number] Name: ARELIS ADAN Rep #: [id number] : 1965 59 From: Cherise Lala DO [...] - Hospitaliston 03-25-2025 H&P Exam - Hospitalist [facility] Medical Records Department [address] [place] [address] H P Exam - Hospitalist 03/25/252057 MR#: [id number] Acct: [id number] Name: ARELIS ADAN Rep #: [id number] : 1965 59 From: Darlin Garner MD PCP: Dr. Steven Gillette MD Status:ADM TOMMY Location: [place] [id number] HPI - General General Date of Admission: 03/25/25 Date of Service: 03/25/25 Chief Complaint: Dyspnea, recent hilar mass dx w/ pleural effusion. HPI Narrative The patient is a 59 y/o F w/ PMHx: Chronic normocytic anemia/iron deficiency anemia with history of menorrhagia who presents to the [facility] ED on 03/25/2025 with recent outpatient PCP [...] #### [facility] [address] [place], [address] Lactic Acidon 03-25-2025 Lactate [Moles/Vol] 1.4 mmol/L Normal 0.0-2.0 [facility] Comment on above: Order Comment: Y Performed By: #### M 300.4500, M300.4600 #### [facility] [address] [place], [address] Partial Thromboplast Timeon 03-25-2025 aPTT Coag (Bld) [Time] 35.0 s Normal 24.1-36.2 [facility] Comment on above: Performed By: #### M 300.4500, M300.4600 #### [facility] [address] [place], [address] Prothrombin Time w/INRon INR Coag (PPP) [Relative time] 1.2 {INR} Normal [facility] Comment on above: Performed By: #### M 300.4500, M300.4600 #### [facility] [address] [place], [address] PT Coag (PPP) [Time] 15.5 s High 11.7-14.9 [facility] Comment on above: Performed By: #### M 300.4500, M300.4600 #### [facility] [address] [place], [address] Urinalysis, Completeon 03-25 BACTERIA 2+ /hpf Normal None Seen [facility] Comment on above: Order Comment: CLEAN CATCH Performed By: #### M 100.638 #### [facility] [address] [place], [address] CA OX CRYSTAL 1+ /hpf Normal [facility] Comment on above: Order Comment: CLEAN CATCH Performed By: #### M 100.638 #### [facility] [address] [place], [address] RBC 0-5 SEEN Normal 0-5 [facility] Comment on above: Order Comment: CLEAN CATCH Performed By: #### M 100.638 #### [facility] [address] [place], [address] EPI,SQUAMOUS 0-5 SEEN Normal 5-10 [facility] Comment on above: Order Comment: CLEAN CATCH Performed By: #### M 100.638 #### [facility] [address] [place], [address] WBC 10-25 SEEN Normal 0-5 [facility] Comment on above: Order Comment: CLEAN CATCH Performed By: #### M 100.638 #### [facility] [address] [place], [address] Mucus Ql (Urine sed) 0 SEEN Normal [facility] Comment on above: Order Comment: CLEAN CATCH Performed By: #### M 100.638 #### [facility] [address] [place], [address] CBC W/Diff, Automated03-14 Absolute Lymph 1.13 X10 3/uL Normal 0.83-4.51 [facility] Comment on above: Order Comment: PER I NTERFACONRAD COMMENT-FIBRIN DDIMOrder Date: 03/24/25Order Info: 0184-1 - CBCD Performed By: #### M 300.6910, M300.6250 #### [facility] [address] [place], [address] Absolute Neut 8.0 X10 3/uL High 2.0-7.7 [facility] Comment on above: Order Comment: PER I NTERFACE COMMENT-FIBRIN DDIMOrder Date: 03/24/25Order Info: 183- - CBCD Performed By: #### M 300.4500, M300.4600 #### [facility] [address] [place], [address] Basophils/100 WBC (Bld) 0.3 % Normal 0-1 [facility] Comment on above: Order Comment: PER I NTERFACE COMMENT-FIBRIN DDIMOrder Date: 03/24/25Order Info: 183- - CBCD Performed By: #### M 300.4500, M300.4600 #### [facility] [address] [place], [address] Eosinophils/100 WBC (Bld) 0.7 % Normal 0-5 [facility] Comment on above: Order Comment: [facility] COMMENT-FIBRIN DDIMOrder Date: 03/24/25Order Info: 183- - CBCD Performed By: #### M 300.4500, M300.4600 #### [facility] [address] [place], [address] Erythrocyte distribution width (RBC) [Ratio] 11.9 % Normal 11.6-14.6 [facility] Comment on above: Order Comment: PER NTERCONRAD COMMENT-FIBRIN DDIMOrder Date: 03/24/25Order Info: 183- - CBCD Performed By: #### M 300.4500, M300.4600 #### [facility] [address] [place], [address] Hematocrit (Bld) [Volume fraction] 36.6 % Low 37-47 [facility] Comment on above: Order Comment: PER NTERCE COMMENT-FIBRIN DDIMOrder Date: 03/24/25Order Info: 183- - CBCD Performed By: #### M 300.4500, M300.4600 #### [facility] [address] [place], [address] Hemoglobin (Bld) [Mass/Vol] 11.9 g/dL Low 12.0-15.0 [facility] Comment on above: Order Comment: PER Emily WATSON COMMENT-FIBRIN DDIMOrder Date: 03/24/25Order Info: 018- - CBCD Performed By: #### M 300.4500, M300.4600 #### [facility] [address] [place], [address] IG% 0.400 Normal 0.0-0.9 [facility] Comment on above: Order Comment: PER Emily RUSHERRUSLAN COMMENT-FIBRIN DDIMOrder Date: 03/24/25Order Info: 018- - CBCD Result Comment: IG% - Immature Granulocytes (promyelocytes, myelocytes and metamyelocytes) > 1% indicates that a LEFT SHIFT is Present. Performed By: #### M 300.4500, M300.4600 #### [facility] [address] [place], [address] Lymphocytes/100 WBC (Bld) 11.2 % Low 19-41 [facility] Comment on above: Order Comment: PER Emily WATSON COMMENT-FIBRIN DDIMOrder Date: 03/24/25Order Info: 018- - CBCD Performed By: #### M 300.4500, M300.4600 #### [facility] [address] [place], [address] MCH (RBC) [Entitic mass] 30.3 pg Normal 27.0-32.0 [facility] Comment on above: Order Comment: PER Emily WATSON COMMENT-FIBRIN DDIMOrder Date: 03/24/25Order Info: 018- - CBCD Performed By: #### M 300.4500, M300.4600 #### [facility] [address] [place], [address] MCHC (RBC) [Mass/Vol] 32.5 g/dL Normal 32-36 [facility] Comment on above: Order Comment: PER I NTERRUSLAN COMMENT-FIBRIN DDIMOrder Date: 03/24/25Order Info: 183- - CBCD Performed By: #### M 300.4500, M300.4600 #### [facility] [address] [place], [address] MCV (RBC) [Entitic vol] 93.1 fL Normal 81-99 [facility] Comment on above: Order Comment: PER Emily NTERRUSLAN COMMENT-FIBRIN DDIMOrder Date: 03/24/25Order Info: 183- - CBCD Performed By: #### M 300.4500, M300.4600 #### [facility] [address] [place], [address] Monocytes/100 WBC (Bld) 8.7 % Normal 0-10 [facility] Comment on above: Order Comment: PER Emily NTERRUSLAN COMMENT-FIBRIN DDIMOrder Date: 03/24/25Order Info: 183- - CBCD Performed By: #### M 300.4500, M300.4600 #### [facility] [address] [place], [address] Neutrophils/100 WBC (Bld) 78.7 % High 47-70 [facility] Comment on above: Order Comment: PER Emily WATSON COMMENT-FIBRIN DDIMOrder Date: 03/24/25Order Info: 018- - CBCD Performed By: #### M 300.4500, M300.4600 #### [facility] [address] [place], [address] Nucleated RBC (Bld) [#/Vol] 0 10*3/uL Normal 0-5 [facility] Comment on above: Order Comment: PER Emily WATSON COMMENT-FIBRIN DDIMOrder Date: 03/24/25Order Info: 018- - CBCD Performed By: #### M 300.4500, M300.4600 #### [facility] [address] [place], [address] Platelet mean volume (Bld) [Entitic vol] 8.7 fL Normal 6.2-12.0 [facility] Comment on above: Order Comment: PER Emily WATSON COMMENT-FIBRIN DDIMOrder Date: 03/24/25Order Info: 183- - CBCD Performed By: #### M 300.4500, M300.4600 #### [facility] [address] [place], [address] Platelets (Bld) [#/Vol] 462 10*3/uL High 150-450 [facility] Comment on above: Order Comment: PER Emily RUSHERCONRAD COMMENT-FIBRIN DDIMOrder Date: 03/24/25Order Info: 183- - CBCD Performed By: #### M 300.4500, M300.4600 #### [facility] [address] [place], [address] RBC (Bld) [#/Vol] 3.93 10*6/uL Low 4.2-5.4 [facility] Comment on above: Order Comment: PER Emily WATSON COMMENT-FIBRIN DDIMOrder Date: 03/24/25Order Info: 183- - CBCD Performed By: #### M 300.4500, M300.4600 #### [facility] [address] [place], [address] RDW SD 41.1 fl Normal 35.1-43.9 [facility] Comment on above: Order Comment: PER Emily WATSON COMMENT-FIBRIN DDIMOrder Date: 03/24/25Order Info: 018- - CBCD Performed By: #### M 300.4500, M300.4600 #### [facility] [address] [place], [address] WBC (Bld) [#/Vol] 10.1 10*3/uL Normal 4.4-11.0 [facility] Comment on above: Order Comment: PER Emily WATSON COMMENT-FIBRIN DDIMOrder Date: 03/24/25Order Info: 018-1 - CBCD Performed By: #### M 300.4500, M300.4600 #### [facility] [address] [place], [address] CRPon 03-24-2025 C-REACTIVE PROT 125.00 mg/L High 0.0-3.0 [facility] Comment on above: Order Comment: PER I NTERFACE COMMENT-FIBRIN DDIMOrder Date: 03/24/25Order Info: 0786-1 - CMPOrder Info: [id number] - CRPOrder Info: 35080-5 - RA Performed By: #### M 300.4500, M300.4600 #### [facility] [address] [place], [address] Chest without Contraston Chest without Contrast [facility] Imaging Services [address], [place] [address] Chest without Contrast MR#: [id number] Acct: [id number] Name: ARELIS ADAN Rep #: [id number] : 1965 F 59 From: Abrahan Fernandez MD PCP: Dr. Steven Gillette MD Status: REG CLI Study: Chest without Contrast Date of Exam: 03/24/25 Exam# [id number] Ordering Dr: Skylar Wagner SHANK CARRIER SHANK CARRIER-C PROCEDURE: CT CHEST WITHOUT CONTRAST 03/24/2025 REASON [...] be performed with intravenous contrast. Reading Location: [facility] CC: MICHAEL Wagner; Dr. Steven Gillette MD Wood Gluer: Signed Normal [facility] Comprehensive Metabolic Prof ilon 03-24-2025 Albumin [Mass/Vol] 3.6 g/dL Normal 3.5-5.0 [facility] Comment on above: Order Comment: PER I NTERFACE COMMENT-FIBRIN DDIMOrder Date: 03/24/25Order Info: 0786-1 - CMPOrder Info: [id number] - CRPOrder Info: [id number] - RA Performed By: #### M 300.4500, M300.4600 #### [facility] [address] [place], [address] Albumin/Globulin [Mass ratio] 0.9 {ratio} Normal 0.9-2.4 [facility] Comment on above: Order Comment: PER I NTERFACE COMMENT-FIBRIN DDIMOrder Date: 03/24/25Order Info: 0786-1 - CMPOrder Info: [id number] - CRPOrder Info: [id number] - RA Performed By: #### M 300.4500, M300.4600 #### [facility] [address] [place], [address] ALK PHOS 69 U/L Normal 35-104 [facility] Comment on above: Order Comment: PER I NTERFACE COMMENT-FIBRIN DDIMOrder Date: 03/24/25Order Info: 86-1 - CMPOrder Info: [id number] - CRPOrder Info: [id number] - RA Performed By: #### M 300.4500, M300.4600 #### [facility] [address] [place], [address] ALT [Catalytic activity/Vol] 18 U/L Normal <=34 [facility] Comment on above: Order Comment: PER I NTERFACONRAD COMMENT-FIBRIN DDIMOrder Date: 03/24/25Order Info: 785- - CMPOrder Info: [id number] - CRPOrder Info: [id number] - RA Performed By: #### M 300.4500, M300.4600 #### [facility] [address] [place], [place], [address] AST [Catalytic activity/Vol] 29 U/L Normal <=31 [facility] Comment on above: Order Comment: PER I NTERRUSLAN COMMENT-FIBRIN DDIMOrder Date: 03/24/25Order Info: 07- - CMPOrder Info: [id number] - CRPOrder Info: [id number] - RA Performed By: #### M 300.4500, M300.4600 #### [facility] [address] [place], [address] Bilirubin [Mass/Vol] 0.31 mg/dL Normal 0.00-1.30 [facility] Comment on above: Order Comment: PER I NTERRUSLAN COMMENT-FIBRIN DDIMOrder Date: 03/24/25Order Info: 0786-1 - CMPOrder Info: [id number] - CRPOrder Info: [id number] - RA Performed By: #### M 300.4500, M300.4600 #### [facility] [address] [place], [address] BUN/CRE 28.4 RATIO High 10-20 [facility] Comment on above: Order Comment: PER I NTERFACE COMMENT-FIBRIN DDIMOrder Date: 03/24/25Order Info: 0786-1 - CMPOrder Info: [id number] - CRPOrder Info: [id number] - RA Performed By: #### M 300.4500, M300.4600 #### [facility] [address] [place], [address] Calcium [Mass/Vol] 9.2 mg/dL Normal 7.6-11.0 [facility] Comment on above: Order Comment: PER I NTERFACE COMMENT-FIBRIN DDIMOrder Date: 03/24/25Order Info: 0786-1 - CMPOrder Info: [id number] - CRPOrder Info: [id number] - RA Performed By: #### M 300.4500, M300.4600 #### [facility] [address] [place], [address] Chloride [Moles/Vol] 103 mmol/L Normal 98-108 [facility] Comment on above: Order Comment: PER I NTERFACE COMMENT-FIBRIN DDIMOrder Date: 03/24/25Order Info: 0786-1 - CMPOrder Info: [id number] - CRPOrder Info: [id number] - RA Performed By: #### M 300.4500, M300.4600 #### [facility] [address] [place], [address] CO2 [Moles/Vol] 24.0 mmol/L Normal 21.0-32.0 [facility] Comment on above: Order Comment: PER I NTERFACE COMMENT-FIBRIN DDIMOrder Date: 03/24/25Order Info: 0786-1 - CMPOrder Info: [id number] - CRPOrder Info: [id number] - RA Performed By: #### M 300.4500, M300.4600 #### [facility] [address] [place], [address] Creatinine [Mass/Vol] 0.76 mg/dL Normal 0.70-1.20 [facility] Comment on above: Order Comment: PER I NTERFACE COMMENT-FIBRIN DDIMOrder Date: 03/24/25Order Info: 0786-1 - CMPOrder Info: [id number] - CRPOrder Info: [id number] - RA Performed By: #### M 300.4500, M300.4600 #### [facility] [address] [place], [address] GAP 13 Normal 5-15 [facility] Comment on above: Order Comment: PER Emily NTERRUSLAN COMMENT-FIBRIN DDIMOrder Date: 03/24/25Order Info: 86-1 - CMPOrder Info: [id number] - CRPOrder Info: [id number] - RA Performed By: #### M 300.4500, M300.4600 #### [facility] [address] [place], [address] GFR/1.73 sq M.predicted among non-blacks MDRD (S/P/Bld) [Vol rate/Area] 91 mL/min/{1.73_m2} Normal >60 [facility] Comment on above: Order Comment: PER Emily WATSON COMMENT-FIBRIN DDIMOrder Date: 03/24/25Order Info: 86-1 - CMPOrder Info: [id number] - CRPOrder Info: [id number] - RA Result Comment: mL/m in/1.73m2 CKD-EPI Creatinine Equation (2020) Performed By: #### M 300.4500, M300.4600 #### [facility] [address] [place], [address] Globulin (S) [Mass/Vol] 4.2 g/dL Normal 2.2-4.2 [facility] Comment on above: Order Comment: PER Emily WATSON COMMENT-FIBRIN DDIMOrder Date: 03/24/25Order Info: 0786-1 - CMPOrder Info: [id number] - CRPOrder Info: [id number] - RA Performed By: #### M 300.4500, M300.4600 #### [facility] [address] [place], [address] Glucose [Mass/Vol] 110 mg/dL High 70-99 [facility] Comment on above: Order Comment: PER Emily RUSHERRUSLAN COMMENT-FIBRIN DDIMOrder Date: 03/24/25Order Info: 785-1 - CMPOrder Info: [id number] - CRPOrder Info: [id number] - RA Performed By: #### M 300.4500, M300.4600 #### [facility] [address] [place], [address] Potassium [Moles/Vol] 4.0 mmol/L Normal 3.3-5.1 [facility] Comment on above: Order Comment: PER Emily RUSHERRUSLAN COMMENT-FIBRIN DDIMOrder Date: 03/24/25Order Info: [id number] - CMPOrder Info: [id number] - CRPOrder Info: [id number] - RA Performed By: #### M 300.4500, M300.4600 #### [facility] [address] [place], [address] Sodium [Moles/Vol] 139 mmol/L Normal 133-145 [facility] Comment on above: Order Comment: PER Emily WATSON COMMENT-FIBRIN DDIMOrder Date: 03/24/25Order Info: [id number] - CMPOrder Info: [id number] - CRPOrder Info: [id number] - RA Performed By: #### M 300.4500, M300.4600 #### [facility] [address] [place], [address] T PROT 7.8 g/dL Normal 5.9-8.4 [facility] Comment on above: Order Comment: PER Emily WATSON COMMENT-FIBRIN DDIMOrder Date: 03/24/25Order Info: 785- - CMPOrder Info: [id number] - CRPOrder Info: [id number] - RA Performed By: #### M 300.4500, M300.4600 #### [facility] [address] [place], [address] Urea nitrogen [Mass/Vol] 22 mg/dL High 4-19 [facility] Comment on above: Order Comment: PER Emily WATSON COMMENT-FIBRIN DDIMOrder Date: 03/24/25Order Info: 0786-1 - CMPOrder Info: [id number] - CRPOrder Info: [id number] - RA Performed By: #### M 300.4500, M300.4600 #### [facility] [address] [place], [address] D-Dimer Quantitative (DVT/PE )on 03-24-2025 D-DIMER QUANT [...] #### [facility] [address] [place], [address] Fibrinogenon 03-24-2025 FIBRINOGEN 872 mg/dl High 203-444 [facility] Comment on above: Order Comment: PER Emily WATSON COMMENT-FIBRIN DDIM Performed By: #### L 300.8000, L300.4700 #### [facility] [address] [place], [address] Rheumatoid Factoron 03-24-20 25 RHEUMATOID FAC 12.1 IU/mL Normal <15 [facility] Comment on above: Order Comment: PER Emily WATSON COMMENT-FIBRIN DDIMOrder Date: 03/24/25Order Info: 0786-1 - CMPOrder Info: [id number] - CRPOrder Info: [id number] - RA Performed By: #### M 300.4500, M300.4600 #### [facility] [address] [place], [place], [address] CBC W/Diff, Automatedon 10-2 PLT EST ADEQUATE Normal ADEQ [facility] Comment on above: Order Comment: Order Date: 03/11/25 Order Info: [id number] - CBCD Performed By: #### L 100.0100, L500.4050 #### [facility] [address] [place], [place], [address] Chest PA and Lateralon 03-11 Chest PA and Lateral [facility] Imaging Services [address] [place], [place] [address] Chest PA and Lateral MR#: [id number] Acct: [id number] Name: ARELIS ADAN Rep #: [id number] : 1965 F 59 From: Ronald Nolan PCP: Dr. Steven Gillette MD Status: REG CLI Study: Chest PA and Lateral Date of Exam: 03/11/25 Exam# [id number] Ordering Dr: Steven Gillette MD PROCEDURE: CHEST [...] noted, right worse than left. Reading Location: [place] [address] CC: Dr. Steven Gillette MD Wood Gluer: Signed Normal [facility] Comprehensive Metabolic Prof ilon 03-11-2025 Albumin [Mass/Vol] 3.8 g/dL Normal 3.5-5.0 [facility] Comment on above: Order Comment: Order Date: 03/11/25 Order Info: 0786-1 - CMP Performed By: #### L 100.0100, L500.4050 #### [facility] [address] [place], [address] Albumin/Globulin [Mass ratio] 1.0 {ratio} Normal 0.9-2.4 [facility] Comment on above: Order Comment: Order Date: 03/11/25 Order Info: 0786-1 - CMP Performed By: #### L 100.0100, L500.4050 #### [facility] [address] [place], [address] ALK PHOS 70 U/L Normal 35-104 [facility] Comment on above: Order Comment: Order Date: 03/11/25 Order Info: 0786-1 - CMP Performed By: #### L 100.0100, L500.4050 #### [facility] [address] [place], [address] ALT [Catalytic activity/Vol] 19 U/L Normal <=34 [facility] Comment on above: Order Comment: Order Date: 03/11/25 Order Info: 0786-1 - CMP Performed By: #### L 100.0100, L500.4050 #### [facility] [address] [place], [address] AST [Catalytic activity/Vol] 32 U/L Normal <=31 [facility] Comment on above: Order Comment: Order Date: 03/11/25 Order Info: 0786-1 - CMP Performed By: #### L 100.0100, L500.4050 #### [facility] [address] [place], [address] Bilirubin [Mass/Vol] 0.52 mg/dL Normal 0.00-1.30 [facility] Comment on above: Order Comment: Order Date: 03/11/25 Order Info: 0786-1 - CMP Performed By: #### L 100.0100, L500.4050 #### [facility] [address] [place], [address] BUN/CRE 22.7 RATIO High 10-20 [facility] Comment on above: Order Comment: Order Date: 03/11/25 Order Info: 0786-1 - CMP Performed By: #### L 100.0100, L500.4050 #### [facility] [address] [place], [address] Calcium [Mass/Vol] 9.2 mg/dL Normal 7.6-11.0 [facility] Comment on above: Order Comment: Order Date: 03/11/25 Order Info: 0786-1 - CMP Performed By: #### L 100.0100, L500.4050 #### [facility] [address] [place], [address] Chloride [Moles/Vol] 102 mmol/L Normal 98-108 [facility] Comment on above: Order Comment: Order Date: 03/11/25 Order Info: 0786-1 - CMP Performed By: #### L 100.0100, L500.4050 #### [facility] [address] [place], [address] CO2 [Moles/Vol] 24.5 mmol/L Normal 21.0-32.0 [facility] Comment on above: Order Comment: Order Date: 03/11/25 Order Info: 0786-1 - CMP Performed By: #### L 100.0100, L500.4050 #### [facility] [address] [place], [address] Creatinine [Mass/Vol] 0.85 mg/dL Normal 0.70-1.20 [facility] Comment on above: Order Comment: Order Date: 03/11/25 Order Info: 0786-1 - CMP Performed By: #### L 100.0100, L500.4050 #### [facility] [address] [place], [address] GAP 12 Normal 5-15 [facility] Comment on above: Order Comment: Order Date: 03/11/25 Order Info: 0786-1 - CMP Performed By: #### L 100.0100, L500.4050 #### [facility] [address] [place], [address] GFR/1.73 sq M.predicted among non-blacks MDRD (S/P/Bld) [Vol rate/Area] 80 mL/min/{1.73_m2} Normal >60 [facility] Comment on above: Order Comment: Order Date: 03/11/25 Order Info: 0786-1 - CMP Result Comment: mL/m in/1.73m2 CKD-EPI Creatinine Equation (2020) Performed By: #### L 100.0100, L500.4050 #### [facility] [address] [place], [address] Globulin (S) [Mass/Vol] 4.0 g/dL Normal 2.2-4.2 [facility] Comment on above: Order Comment: Order Date: 03/11/25 Order Info: 0786-1 - CMP Performed By: #### L 100.0100, L500.4050 #### [facility] [address] [place], [address] Glucose [Mass/Vol] 173 mg/dL High 70-99 [facility] Comment on above: Order Comment: Order Date: 03/11/25 Order Info: 0786-1 - CMP Performed By: #### L 100.0100, L500.4050 #### [facility] [address] [place], [address] Potassium [Moles/Vol] 3.9 mmol/L Normal 3.3-5.1 [facility] Comment on above: Order Comment: Order Date: 03/11/25 Order Info: 0786-1 - CMP Performed By: #### L 100.0100, L500.4050 #### [facility] [address] [place], [address] Sodium [Moles/Vol] 139 mmol/L Normal 133-145 [facility] Comment on above: Order Comment: Order Date: 03/11/25 Order Info: 0786-1 - CMP Performed By: #### L 100.0100, L500.4050 #### [facility] [address] [place], [place], [address] T PROT 7.7 g/dL Normal 5.9-8.4 [facility] Comment on above: Order Comment: Order Date: 03/11/25 Order Info: 0786-1 - CMP Performed By: #### L 100.0100, L500.4050 #### [facility] [address] [place], [place], [address] Urea nitrogen [Mass/Vol] 19 mg/dL Normal 4-19 [facility] Comment on above: Order Comment: Order Date: 03/11/25 Order Info: 0786-1 - CMP Performed By: #### L 100.0100, L500.4050 #### [facility] [address] [place], [place], [address] CNOVon 11-19-2024 CNOV Office Visit (OBGYWM ) ARELIS ADAN I ([id number]) 1965 F Date Time Provider Department 11/19/24 8:15 AM NORMA LERMA During your visit today, we recorded the following information about you: Blood pressure Weight Height 124/70 59 kg 1.626 m Norma Lerma APRN.CNP 11/19/2024 8:21 AM Signed Machine Heel Seat Laster offered: Patient declinesMarley Infante is a 59 [...] OB History No obstetric history on file. 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 As applicable, any other physician, advance practice provider, medical student, or other health professional student that will be observing or involved in the sensitive examination for educational or training purposes was discussed with the Patient or Authorized Stock Control Clerk. The Patient or Authorized Stock Control Clerk has agreed to proceed with the sensitive [...] external genitalia normal, normal Bartholin's glands, urethra, Ivor's glands, no vulvar lesions, no cervical lesions, [...] MG CAPSULE (more content not included)... Normal [facility] 08-12-2024 LANNY Telephone (OBGYWM) ARELIS ADAN I ([id number]) 1965 F Date Time Provider Department 08/12/24 [...] returns to the office. DENNIS Walker Emily, APRN.BUSINESS TECHNOLOGY TEACHER 08/13/2024 7:23 AM Signed Not a common [...] Fully Assessed Reason for Visit: Patient Question [3567] Prescriptions as of 08/13/2024 - estradiol (CLIMARA) [...] Encounter Status:Closed by TIERRA GRIMALDO on 08/13/24 [facility] 08-04-2024 LANNY Telephone (OBGYWM) ANTIONETTEARELIS Emily ([id number]) 1965 F Date Time Provider Department 08/04/24 NORMA LERMA OBGYWM During your visit today, we recorded the following information about you: Marii Nagy LPN 08/04/2024 9:41 AM Signed Patient called stating that she was prescribed the estradiol patch 05/2024 and is having itching in area where adhesive is. Patient tried removing the adhesive and using tape but this is not practical for care home use. Patient asking if there is another patch available? Or recommendations for people sensitive to the adhesive? Respond to patient by mychart message Norma Lerma APRN.BUSINESS TECHNOLOGY TEACHER 08/04/2024 9:53 AM Signed I recommend rotating [...] Date Reviewed: 06/20/2024 Reviewed by: Norma Lerma APRN.BUSINESS TECHNOLOGY TEACHER - Fully Assessed Reason for Visit: Patient [...] Encounter Status:Closed by PRISCA MARIN on 08/04/24 [facility] Michel 05-23-2024 LANNY Telephone (OBGYWM) ARELIS ADAN I ([id number]) 1965 F Date Time Provider Department 05/23/24 [...] Status:Closed by SPEEDY SOARES on 05/23/24 Normal [facility] 25(OH)D3 SerPl-mCncon 2024 25-hydroxyvitamin D3 [Mass/Vol] 58.3 ng/mL Normal 31.0-80.0 [facility] Comment on above: Order Comment: Holly tompkins Type: BLOOD SPECIMEN Ordering Facility: [facility] Address: [address] [place] [address] Result Comment: Clas sification of 25 [place] Vitamin D status: Deficiency/Insufficiency: < or = 30 ng/ml. Sufficiency/Optimal Levels: 31-80 ng/mL Toxicity: > 100 ng/mL. Test performed by chemiluminescent immunoassay. Performed By: #### 1 989-3 #### [facility] CLIA [id number] [address] [place] [address] [place] CBC panel Auto (Bld)on 05-22 Erythrocyte distribution width (RBC) [Ratio] 11.9 % Normal 11.5-15.0 [facility] Comment on above: Order Comment: Holly tompkins Type: BLOOD SPECIMEN Ordering Facility: [facility] Address: [address] [place] [address] Performed By: #### 5 8410-2 #### [facility] CLIA [id number] [address] [place] [address] [place] Hematocrit (Bld) [Volume fraction] 41.4 % Normal 36.0-46.0 [facility] Comment on above: Order Comment: Holly tompkins Type: BLOOD SPECIMEN Ordering Facility: [facility] Address: [address] [place] [address] Performed By: #### 5 8410-2 #### [facility] CLIA [id number] [address] [place] [address] [place] Hemoglobin (Bld) [Mass/Vol] 13.6 g/dL Normal 11.5-15.5 [facility] Comment on above: Order Comment: Speci men Type: BLOOD SPECIMEN Ordering Facility: [facility] Address: [address] [place] [address] Performed By: #### 5 8410-2 #### [facility] CLIA [id number] [address] [place] [address] [place] MCH (RBC) [Entitic mass] 31.0 pg Normal 26.0-34.0 [facility] Comment on above: Order Comment: Speci men Type: BLOOD SPECIMEN Ordering Facility: [facility] Address: [address] [place] [address] Performed By: #### 5 8410-2 #### [id number] [address] [place] [address] [place] MCHC (RBC) [Mass/Vol] 32.9 g/dL Normal 30.5-36.0 [facility] Comment on above: Order Comment: Speci men Type: BLOOD SPECIMEN Ordering Facility: [facility] Address: [address] [place] [address] Performed By: #### 5 8410-2 #### [facility] [id number] [address] [place] [address] [place] MCV (RBC) [Entitic vol] 94.3 fL Normal 80.0-100.0 [facility] Comment on above: Order Comment: Speci men Type: BLOOD SPECIMEN Ordering Facility: [facility] Address: [address] [place] [address] Performed By: #### 5 8410-2 #### [facility] [id number] [address] [place] [address] [place] Nucleated RBC (Bld) [#/Vol] 10*3/uL Normal <0.01 [facility] Comment on above: Order Comment: Speci men Type: BLOOD SPECIMEN Ordering Facility: [facility] Address: [address] [place] [address] Performed By: #### 5 8410-2 #### [facility] CLIA [id number] [address] [place] [address] [place] Platelet mean volume (Bld) [Entitic vol] 9.6 fL Normal 9.0-12.7 [facility] Comment on above: Order Comment: Speci men Type: BLOOD SPECIMEN Ordering Facility: [facility] Address: [address] [place] [address] Performed By: #### 5 8410-2 #### [facility] CLIA [id number] [address] [place] [address] [place] Platelets (Bld) [#/Vol] 206 10*3/uL Normal 150-400 [facility] Comment on above: Order Comment: Speci men Type: BLOOD SPECIMEN Ordering Facility: [facility] Address: [address] [place] [address] Performed By: #### 5 8410-2 #### [facility] CLIA [id number] [address] [place] [address] [place] RBC (Bld) [#/Vol] 4.39 10*6/uL Normal 3.90-5.20 [facility] Comment on above: Order Comment: Speci men Type: BLOOD SPECIMEN Ordering Facility: [facility] Address: [address] [place] [address] Performed By: #### 5 8410-2 #### [facility] CLIA [id number] [address] [place] [address] [place] WBC (Bld) [#/Vol] 6.59 10*3/uL Normal 3.70-11.00 [facility] Comment on above: Order Comment: Speci men Type: BLOOD SPECIMEN Ordering Facility: [facility] Address: [address] [place] [address] Performed By: #### 5 8410-2 #### [facility] CLIA [id number] [address] [place] [address] [place] Comprehensive metabolic 2000 panelon 05-22-2024 Albumin [Mass/Vol] 4.4 g/dL Normal 3.9-4.9 [facility] Comment on above: Order Comment: Speci men Type: BLOOD SPECIMEN Ordering Facility: [facility] Address: [address] [place] [address] Performed By: #### 5 5454-3 #### [facility] CLIA [id number] [address] [place] [address] [place] ALP [Catalytic activity/Vol] 79 U/L Normal 34-123 [facility] Comment on above: Order Comment: Speci men Type: BLOOD SPECIMEN Ordering Facility: [facility] Address: [address] [place] [address] Performed By: #### 5 5454-3 #### [facility] CLIA [id number] [address] [place] [address] [place] ALT [Catalytic activity/Vol] 15 U/L Normal 7-38 [facility] Comment on above: Order Comment: Speci men Type: BLOOD SPECIMEN Ordering Facility: [facility] Address: [address] [place] [address] Performed By: #### 5 5454-3 #### [facility] CLIA [id number] [address] [place] [address] [place] Anion gap [Moles/Vol] 9 mmol/L Normal 8-15 [facility] Comment on above: Order Comment: Speci men Type: BLOOD SPECIMEN Ordering Facility: [facility] Address: [address] [place] [address] Performed By: #### 5 5454-3 #### [facility] CLIA [id number] [address] [place] [address] [place] AST [Catalytic activity/Vol] 22 U/L Normal 13-35 [facility] Comment on above: Order Comment: Speci men Type: BLOOD SPECIMEN Ordering Facility: [facility] Address: [address] [place] [address] Performed By: #### 5 5454-3 #### [facility] CLIA [id number] [address] [place] [address] [place] Bilirubin [Mass/Vol] 0.4 mg/dL Normal 0.2-1.3 [facility] Comment on above: Order Comment: Speci men Type: BLOOD SPECIMEN Ordering Facility: [facility] Address: [address] [place] [address] Performed By: #### 5 5454-3 #### [facility] CLIA [id number] [address] [place] [address] [place] Calcium [Mass/Vol] 9.9 mg/dL Normal 8.5-10.2 [facility] Comment on above: Order Comment: Speci men Type: BLOOD SPECIMEN Ordering Facility: [facility] Address: [address] [place] [address] Performed By: #### 5 5454-3 #### [facility] CLIA [id number] [address] [place] [address] [place] Chloride [Moles/Vol] 104 mmol/L Normal 98-107 [facility] Comment on above: Order Comment: Speci men Type: BLOOD SPECIMEN Ordering Facility: [facility] Address: [address] [place] [address] Performed By: #### 5 5454-3 #### [facility] CLIA [id number] [address] [place] [address] [place] CO2 [Moles/Vol] 26 mmol/L Normal 22-30 [facility] Comment on above: Order Comment: Speci men Type: BLOOD SPECIMEN Ordering Facility: [facility] Address: [address] [place] [address] Performed By: #### 5 5454-3 #### [facility] CLIA [id number] [address] [place] [address] [place] Creatinine [Mass/Vol] 0.73 mg/dL Normal 0.58-0.96 [facility] Comment on above: Order Comment: Holly tompkins Type: BLOOD SPECIMEN Ordering Facility: [facility] Address: [address] [place] [address] Performed By: #### 5 5454-3 #### [facility] CLIA [id number] [address] [place] [address] [place] Creatinine and Glomerular filtration rate.predicted panel (S/P/Bld) 96 mL/min/1.73m??? Normal >=60 [facility] Comment on above: Order Comment: Holly tompkins Type: BLOOD SPECIMEN Ordering Facility: [facility] Address: [address] [place] [address] Result Comment: Ashlee mated Glomerular Filtration Rate [...] GFR. Performed By: #### 5 5454-3 #### [facility] CLIA [id number] [address] [place] [address] [place] Glucose [Mass/Vol] 109 mg/dL High 74-99 [facility] Comment on above: Order Comment: Holly tompkins Type: BLOOD SPECIMEN Ordering Facility: [facility] Address: [address] [place] [address] Result Comment: The [place] Diabetes Association (ADA) provides guidance for cutoff [...] Standards of Medical Care in Diabetes 2016, [place] Diabetes Association. Diabetes Care. 2016.39(Suppl 1). Performed By: #### 5 5454-3 #### [facility] CLIA [id number] [address] [place] [address] [place] Potassium [Moles/Vol] 3.8 mmol/L Normal 3.7-5.1 [facility] Comment on above: Order Comment: Holly tompkins Type: BLOOD SPECIMEN Ordering Facility: [facility] Address: [address] [place] [address] Performed By: #### 5 5454-3 #### [facility] CLIA [id number] [address] [place] [address] [place] Protein [Mass/Vol] 7.6 g/dL Normal 6.3-8.0 [facility] Comment on above: Order Comment: oHlly tompkins Type: BLOOD SPECIMEN Ordering Facility: [facility] Address: [address] [place] [address] Performed By: #### 5 5454-3 #### [facility] CLIA [id number] [address] [place] [address] [place] Sodium [Moles/Vol] 139 mmol/L Normal 136-144 [facility] Comment on above: Order Comment: Holly tompkins Type: BLOOD SPECIMEN Ordering Facility: [facility] Address: [address] [place] [address] Performed By: #### 5 5454-3 #### [facility] CLIA [id number] [address] [place] [address] [place] Urea nitrogen [Mass/Vol] 23 mg/dL High 7-21 [facility] Comment on above: Order Comment: Holly tompkisn Type: BLOOD SPECIMEN Ordering Facility: [facility] Address: [address] [place] [address] Performed By: #### 5 5454-3 #### [facility] CLIA [id number] [address] [place] [address] [place] HbA1c (Bld)on 05-22-2024 Average glucose Estimated from glycated hemoglobin (Bld) [Mass/Vol] 105 mg/dL Normal [facility] Comment on above: Order Comment: Holly tompkins Type: BLOOD SPECIMEN Ordering Facility: [facility] Address: [address] [place] [address] Result Comment: eAG: (Estimated average glucose) is a calculated value from HgbA1c and is telesales representative of the average blood glucose level in the last 2-3 month period. Performed By: #### 5 5454-3 #### [facility] CLIA [id number] [address] [place] [address] [place] HbA1c (Bld) [Mass fraction] 5.3 % Normal 4.3-5.6 [facility] Comment on above: Order Comment: Holly tompkins Type: BLOOD SPECIMEN Ordering Facility: [facility] Address: [address] [place] [address] Result Comment: [place] Diabetes Association guidelines indicate that patients with HgbA1c in the range 5.7-6.4% are at increased risk for development of diabetes, and intervention by lifestyle modification may be beneficial. HgbA1c greater or equal to 6.5% is considered diagnostic of diabetes. Performed By: #### 5 5454-3 #### [facility] CLIA [id number] [address] [place] [address] [place] Lipid 1996 panelon Cholesterol [Mass/Vol] 257 mg/dL High <200 [facility] Comment on above: Order Comment: Holly tompkins Type: BLOOD SPECIMEN Ordering Facility: [facility] Address: [address] [place] [address] Result Comment: <200 mg/dL, Desirable 200-239 mg/dL, Borderline high >239 mg/dL, High Performed By: #### 5 5454-3 #### [facility] CLIA [id number] [address] [place] [address] [place] Cholesterol in HDL [Mass/Vol] 61 mg/dL Normal >39 [facility] Comment on above: Order Comment: Holly tompkins Type: BLOOD SPECIMEN Ordering Facility: [facility] Address: [address] [place] [address] Result Comment: 40-5 9 mg/dL, Acceptable >59 mg/dL, High: Negative risk factor for coronary heart disease <40 mg/dL, Low: Positive risk factor for coronary heart disease Performed By: #### 5 5454-3 #### [facility] CLIA [id number] [address] [place] [address] [place] [facility] Cholesterol in LDL [Mass/Vol] 176 mg/dL High <100 [facility] Comment on above: Order Comment: Holly tompkins Type: BLOOD SPECIMEN Ordering Facility: [facility] Address: [address] [place] [address] Result Comment: <100 mg/dL, Optimal 100-129 mg/dL, Near optimal/above optimal 130-159 mg/dL, Borderline high 160-189 mg/dL, High >189 mg/dL, Very high Secondary prevention optimal LDL Cholesterol levels are recommended to be < 70 mg/dL Performed By: #### 5 5454-3 #### [facility] CLIA [id number] [address] [place] [address] [place] Cholesterol in LDL/Cholesterol in HDL [Mass ratio] 2.89 {ratio} High <2.54 [facility] Comment on above: Order Comment: Holly tompkins Type: BLOOD SPECIMEN Ordering Facility: [facility] Address: [address] [place] [address] Result Comment: Refe rence: 1. National Cholesterol Education Program ATP III Guideline At-A-Glance Quick Desk Reference: National Heart, Lung, and Blood [place]. National Institutes of Health. 2001: NIH Publication No. 01-3305. 2. An International Atherosclerosis Society position paper: global recommendations for the management of dyslipidemia: executive summary, Atherosclerosis. 2014: 232(2):410-413. Performed By: #### 5 5454-3 #### [facility] CLIA [id number] [facility] [place] [address] [place] Cholesterol in VLDL [Mass/Vol] 20 mg/dL Normal <30 [facility] Comment on above: Order Comment: Holly tompkins Type: BLOOD SPECIMEN Ordering Facility: [facility] Address: [address] [place] [address] Performed By: #### 5 5454-3 #### [facility] CLIA [id number] [address] [place] [address] [place] Cholesterol non HDL [Mass/Vol] 196 mg/dL High <130 [facility] Comment on above: Order Comment: Holly tompkins Type: BLOOD SPECIMEN Ordering Facility: [facility] Address: [address] [place] [address] Result Comment: <130 mg/dL, Optimal 130-159 mg/dL, Near optimal/above optimal 160-189 mg/dL, Borderline high 190-219 mg/dL, High >219 mg/dL, Very high Secondary prevention optimal non HDL Cholesterol levels are recommended to be <100 mg/dL Performed By: #### 5 5454-3 #### [facility] CLIA [id number] [address] [place] [address] [place] Cholesterol.total/ Cholesterol in HDL [Mass ratio] 4.21 {ratio} Normal <5.10 [facility] Comment on above: Order Comment: Holly tompkins Type: BLOOD SPECIMEN Ordering Facility: [facility] Address: [address] [place] [address] Performed By: #### 5 5454-3 #### [facility] CLIA [id number] [address] [place] [address] [place] FASTING TIME 12 hrs Normal [facility] Comment on above: Order Comment: Speci men Type: BLOOD SPECIMEN Ordering Facility: [facility] Address: [address] [place] [address] Performed By: #### 5 5454-3 #### [facility] CLIA [id number] [address] [place] [address] [place] Triglyceride [Mass/Vol] 98 mg/dL Normal <150 [facility] Comment on above: Order Comment: Speci men Type: BLOOD SPECIMEN Ordering Facility: [facility] Address: [address] [place] [address] Result Comment: <150 mg/dL, Normal 150-199 mg/dL, Borderline high 200-499 mg/dL, High >499 mg/dL, Very high Performed By: #### 5 5454-3 #### [facility] CLIA [id number] [address] [place] [address] [place] CNOVon 05-21-2024 CNOV Office Visit (OBGYWM ) ARELIS ADAN I ([id number]) 1965 F Date Time Provider Department 05/21/24 9:15 AM NORMA LERMA During your visit today, we recorded the following information about you: Blood pressure Weight 120/74 62 kg Norma Lerma APRN.BUSINESS TECHNOLOGY TEACHER 05/21/2024 9:31 AM Signed Arelis Emily Adan [...] OB History No obstetric history on file. 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 Normal [facility] Michel 05-12-2024 LANNY Telephone (OBGYWM) ARELIS ADAN I ([id number]) 1965 F Date Time Provider Department 12/30/24 [...] Status:Closed by PRISCA MARIN on 05/12/24 Normal [facility] Basophil percentageon 2021 Bilirubin [Mass/Vol] 0.40 mg/dL 0.20-1.00 [facility] Work Phone: Comment on above: For patients on eltr ombopag therapy, use of Dimension [place] TBIL is not recommended. Chloride [Moles/Vol] 108 mmol/L 98-107 [facility] Work Phone: Cholesterol [Mass/Vol] 148 mg/dL <200 [facility] Work Phone: [phone] Comment on above: <200 mg/dL Desirable 200-240 mg/dL Borderline >240 mg/dL High Risk Glucose [Mass/Vol] 97 mg/dL 74-106 [facility] Work Phone: [phone] Potassium [Moles/Vol] 3.8 mmol/L 3.5-5.1 [facility] Work Phone: Protein [Mass/Vol] 7.8 g/dL 6.4-8.2 [facility] Work Phone: Sodium [Moles/Vol] 141 mmol/L 136-145 [facility] Work Phone: Triglyceride [Mass/Vol] 53 mg/dL <199 [...] (mass/volume)on 02-14-2022 Albumin [Mass/Vol] 3.9 g/dL 3.2-5.0 [facility] Work Phone: Serum or plasma albumin/glob ulin mass ratioon 02-14-2022 Albumin/Globulin [Mass ratio] 1.0 {ratio} 0.9-2.4 [facility] Work Phone: Serum or plasma calcium chepe urement (mass/volume)on 02-14-2022 Calcium [Mass/Vol] 9.4 mg/dL 8.5-10.1 [facility] Work Phone: Serum or plasma cholesterol in [...] 08:06-0400 Body height 162.6 cm Norma Lerma APRN.BUSINESS TECHNOLOGY TEACHER Work Phone: [facility] 11-19-2024 08:06-0400 Body mass index (BMI) [Ratio] 22.31 kg/m2 Norma Lerma APRN.BUSINESS TECHNOLOGY TEACHER Work Phone: [facility] 11-19-2024 08:06-0400 Body weight 58.97 kg Norma Lerma APRN.BUSINESS TECHNOLOGY TEACHER Work Phone: [facility] 11-19-2024 08:06-0400 Diastolic blood pressure 70 mm[Hg] Norma Lerma BROADCAST NEWS PRODUCER.BUSINESS TECHNOLOGY TEACHER Work Phone: [facility] 11-19-2024 08:06-0400 Systolic blood pressure 124 mm[Hg] Norma Havince BROADCAST NEWS PRODUCER.BUSINESS TECHNOLOGY TEACHER Work Phone: [facility] 05-21-2024 09:07-0500 Body mass index (BMI) [Ratio] 23.45 kg/m2 Normadarien Lerma BROADCAST NEWS PRODUCER.BUSINESS TECHNOLOGY TEACHER Work Phone: [facility] 05-21-2024 09:07-0500 Body weight 61.96 kg Norma Lerma APRN.BUSINESS TECHNOLOGY TEACHER Work Phone: [facility] 05-21-2024 09:07-0500 Diastolic blood pressure 74 mm[Hg] Norma Havince BROADCAST NEWS PRODUCER.BUSINESS TECHNOLOGY TEACHER Work Phone: [facility] 05-21-2024 09:07-0500 Systolic blood pressure 120 mm[Hg] Norma Havince BROADCAST NEWS PRODUCER.BUSINESS TECHNOLOGY TEACHER Work Phone: [facility] 10-25-2023 07:23-0400 Body height 162.6 cm Norma Lerma APRN.BUSINESS TECHNOLOGY TEACHER Work Phone: [facility] 10-25-2023 07:23-0400 Body mass index (BMI) [Ratio] 24.03 kg/m2 Norma Lerma APRN.BUSINESS TECHNOLOGY TEACHER Work Phone: [facility] 10-25-2023 07:23-0400 Body weight 63.5 kg Norma Lerma APRN.BUSINESS TECHNOLOGY TEACHER Work Phone: [facility] 10-25-2023 07:23-0400 Diastolic blood pressure 78 mm[Hg] Norma Haury BROADCAST NEWS PRODUCER.BUSINESS TECHNOLOGY TEACHER Work Phone: [facility] 10-25-2023 07:23-0400 Systolic blood pressure 116 mm[Hg] Norma Havince BROADCAST NEWS PRODUCER.BUSINESS TECHNOLOGY TEACHER Work Phone: [facility] Encounters Encounter Date Encounter Type Care Provider Facility Start: 03-25-2025 ambulatory Steven Gillette Facility:[facility] Start: 03-25-2025 ambulatory Gilson Cisneros Facility:[facility] Start: 03-24-2025 ambulatory Skylar Wagner NP Facility :[facility] Start: 03-11-2025 End: 03-11-2025 ambulatory Steven Gillette Facility:[facility] Start: 11-19-2024 End: 11-19-2024 Patient encounter procedure Norma Lerma APRN.BUSINESS TECHNOLOGY TEACHER Work Phone: OB/Gynecology Comment on above: Encounter for gyneco logical examination (general) (routine) without abnormal findings (Primary Dx); Encounter for screening mammogram for breast cancer; Hot flashes Start: 11-19-2024 End: 11-19-2024 Patient encounter status Norma Lerma APRN.BUSINESS TECHNOLOGY TEACHER Work Phone: [facility] Start: 11-19-2024 End: 11-19-2024 ambulatory STEVEN GILLETTE Facility:[facility] Start: 11-19-2024 Encounter for gynecological examination (general) (routine) without abnormal findings NORMA LERMA [facility] Start: 08-12-2024 End: 08-13-2024 Telephone encounter Norma Lerma APRN.BUSINESS TECHNOLOGY TEACHER Work Phone: OB/Gynecology Comment on above: Patient Question Start: 08-04-2024 End: 08-04-2024 Telephone encounter Norma Lerma APRN.BUSINESS TECHNOLOGY TEACHER Work Phone: OB/Gynecology Comment on above: Patient Update Start: 06-20-2024 End: 06-20-2024 ambulatory Norma Lerma APRN.BUSINESS TECHNOLOGY TEACHER Work Phone: OB/Gynecology Comment on above: Hormone replacement therapy (postmenopausal) (Primary Dx); Menopausal symptoms; Hyperlipidemia, unspecified hyperlipidemia type Start: 06-20-2024 End: 06-20-2024 Telemedicine consultation with patient Normadarien Torresvince WILCOXBUSINESS TECHNOLOGY TEACHER Work Phone: OB/Gynecology Start: 05-23-2024 End: 05-23-2024 Telephone encounter Norma Lerma APRN.BUSINESS TECHNOLOGY TEACHER Work Phone: OB/Gynecology Comment on above: Results Start: 05-22-2024 End: 05-22-2024 ambulatory NORMA LERMA Facility:[facility] Start: 05-21-2024 End: 05-21-2024 ambulatory NORMA LERMA Facility:[facility] Start: 05-21-2024 End: 05-21-2024 Patient encounter procedure Norma Lerma APRN.BUSINESS TECHNOLOGY TEACHER Work Phone: OB/Gynecology Comment on above: Menopausal symptoms (Primary Dx) Start: 05-12-2024 End: 05-12-2024 Telephone encounter Norma Lerma APRN.BUSINESS TECHNOLOGY TEACHER Work Phone: OB/Gynecology Comment on above: hot flashes Start: 10-25-2023 End: 10-25-2023 Patient encounter procedure Norma Lerma APRN.BUSINESS TECHNOLOGY TEACHER Work Phone: OB/Gynecology Comment on above: Encounter for gyneco logical examination (general) (routine) with abnormal findings (Primary Dx); Encounter for screening for human papillomavirus (HPV); Pap smear for cervical cancer screening; Encounter for screening mammogram for breast cancer; Genitourinary syndrome of menopause; Hot flashes due to menopause; Night sweats Start: 10-25-2023 End: 10-25-2023 Patient encounter status Norma Lerma APRN.CNP Work Phone: [facility] Work Phone: Start: 02-14-2022 Patient encounter procedure [facility] Start: 02-13-2022 End: 02-13-2022 ambulatory [facility] Work Phone: Start: 02-13-2022 End: 02-13-2022 Patient encounter procedure [facility], Specimen Procedures Date Procedure Procedure Detail Performing Clinician Start: 05-22-2024 Lipid 1996 panel - S mitch or Plasma Norma Lerma APRN.CNP Work Phone: Bacteria identified in Urine by Culture Urine culture Plan of Treatment Date Care Activity Detail Author Start: 05-22-2029 Lipid panel Lipid Screening [facility] Start: 10-24-2028 Screening for malign ant neoplasm of cervix Cervical Cancer Screening [facility] Start: 05-22-2027 Diabetes Screening Diabetes Screenin g [facility] Start: 12-03-2025 End: 12-03-2025 Patient encounter procedure 12/03/2025 8:15 AM EDT Office Visit OB/Gynecology [address] [place] [id number] Norma Lerma APRN.CNP [address] [place] [id number] Annual OB/Gynecology Comment on above: Annual Start: 01-12-2025 Influenza vaccination Influenza Vacc ine (#1) [facility] Start: 10-24-2024 End: 10-24-2024 Patient encounter procedure 10/24/2024 8:15 AM EDT Office Visit OB/Gynecology [address] [place] [address] Norma Lerma APRN.BUSINESS TECHNOLOGY TEACHER [address] [place] [address] Annual OB/Gynecology Comment on above: Annual Start: 06-20-2024 End: 06-20-2024 ambulatory 06/20/2024 9:00 AM [facility] OB/Gynecology [address] [place] [address] Norma Lerma APRN.BUSINESS TECHNOLOGY TEACHER [address] [place] [address] HRT f/u OB/Gynecology Comment on above: HRT f/u Start: 05-21-2024 End: 08-20-2024 25-hydroxyvitamin D3 [Mass/volume] in Serum or Plasma VITAMIN D 25 HYDROXY Lab Routine Menopausal symptoms Expected: 05/21/2024, Expires: 08/20/2024 [facility] Comment on above: Expected: 05/21/2024 , Expires: 08/20/2024 Start: 05-21-2024 End: 08-20-2024 CBC panel - Blood by Automated count COMPLETE BLOOD COUNT Lab Routine Menopausal symptoms Expected: 05/21/2024, Expires: 08/20/2024 [facility] Comment on above: Expected: 05/21/2024 , Expires: 08/20/2024 Start: 05-21-2024 End: 08-20-2024 Comprehensive metabolic 2000 panel - Serum or Plasma COMPREHENSIVE METABOLIC PANEL Lab Routine Menopausal symptoms Expected: 05/21/2024, Expires: 08/20/2024 [facility] Work Phone: Comment on above: Expected: 05/21/2024 , Expires: 08/20/2024 Start: 05-21-2024 End: 08-20-2024 Hemoglobin A1c in Blood HEMOGLOBIN A1C Lab Routine Menopausal symptoms Expected: 05/21/2024, Expires: 08/20/2024 [facility] Comment on above: Expected: 05/21/2024 , Expires: 08/20/2024 Start: 05-21-2024 End: 08-20-2024 Lipid 1996 panel - Serum or Plasma LIPID PANEL BASIC Lab Routine Menopausal symptoms Expected: 05/21/2024, Expires: 08/20/2024 [facility] Comment on above: Expected: 05/21/2024 , Expires: 08/20/2024 Start: 05-21-2024 End: 05-21-2024 Patient encounter procedure 05/21/2024 9:15 AM EST Office Visit OB/Gynecology [address] [place] [address] Norma Lerma APRN.BUSINESS TECHNOLOGY TEACHER [address] [place] [address] Discuss HRT OB/Gynecology Comment on above: Discuss HRT Start: 01-13-2024 Covid-19 Vaccine ( season) Covid-19 Vaccine () [facility] Start: 01-13-2024 Influenza vaccination [facility] Start: 05-14-2023 Behavioral Health Screening Behavioral Health Screening [facility] Start: 01-12-2023 Covid-19 Vaccine ( season) Covid-19 Vaccine ( season) [facility] Start: 05-15-2022 Screening for malign ant neoplasm of colon [facility] Start: 2017 Pneumococcal Vaccine : 50+ (1 of 1 - PCV) Pneumococcal Vaccine: 50+ (1 of 1 - PCV) [facility] Start: 2017 Shingrix Vaccine (1 of 2) Shingrix Vaccine (1 of 2) [facility] Start: 2012 Diabetes Screening Diabetes Screenin g [facility] Start: 2012 Lipid panel Lipid Screening [facility] Start: 2012 Screening for malign ant neoplasm of colon [facility] Start: 2007 Screening for malign ant neoplasm of breast Mammogram Screening [facility] Start: 1988 Screening for malign ant neoplasm of cervix Cervical Cancer Screening [facility] Start: 1986 Hepatitis B Vaccine (1 of 3 - 19+ 3-dose series) Hepatitis B Vaccine (1 of 3 - 19+ 3-dose series) [facility] Start: 1986 Urine microalbumin profile DTaP,Tdap,Td Vaccine (1 - Tdap) [facility] Start: 1985 Anxiety Screening Anxiety Screening [facility] Start: 1985 Depression Screening Depression Scre mary [facility] Start: 1985 Hepatitis C screening Hepatitis C Sc haider [facility] Start: 1985 HIV screening HIV Screening [facility] End: 12-19-2025 DBT Breast - bilateral screening SEAN SCREENING W GABBIE Radiology Routine Encounter for screening mammogram for breast cancer 1 Occurrences starting 11/19/2024 until 12/19/2025 [facility] Work Phone: Comment on above: 1 Occurrences starti ng 11/19/2024 until 12/19/2025 End: 11-23-2024 MG Breast Screening SEAN SCREENING Radiology Routine Encounter for screening mammogram for breast cancer 1 Occurrences starting 10/25/2023 until 11/23/2024 [facility] Work Phone: Comment on above: 1 Occurrences starti ng 10/25/2023 until 11/23/2024 PAP TEST PAP TEST Lab Rou reji Encounter for screening for human papillomavirus (HPV) Pap smear for cervical cancer screening 10/25/2023 11:08 AM EDT [facility] Payers Date Payer Category Payer Unknown [id number] 2025 Self-pay [id number] 2021 Private Health Insurance [facility] GENERIC [id number] 2021 Unknown [id number] 2021 Unknown [id number] 2021 Unknown SELF 2016 Unknown [employer] [id number] Unknown [id number] Unknown [id number] Unknown [id number] Unknown [id number] Unknown [id number] Social History Date Type Detail Facility Start: 02-21-2017 [facility] Work Phone: Start: 1965 Sex Assigned At Female [facility] Work Phone: Start: 01-29-2014 [facility] Start: 10-25-2023 End: 11-19-2024 Alcohol intake Ex-drinker (finding) [facility] Start: 10-25-2023 End: 11-19-2024 History of Social function [facility] Start: 10-25-2023 End: 11-19-2024 Tobacco use panel [facility] National Score (1-10 0), lower number is lower risk 48 [facility] Start: 1965 Sex Assigned At Not on file C [facility] Functional Status Date Assessment Result Facility 10-28-2014 Are you deaf, or do you have serious difficulty hearing No 10/28/2014 6:33 PM EDT Kaitlin Dominguez LPN No [facility] 10-28-2014 Are you blind, or do you have serious difficulty seeing, even when wearing glasses No 10/28/2014 6:33 PM EDT Kaitlin Dominguez LPN No [facility] 10-28-2014 Do you have serious difficulty walking or climbing stairs No 10/28/2014 6:33 PM EDT Kaitlin Dominguez LPN No [facility] 10-28-2014 Do you have difficul ty dressing or bathing No 10/28/2014 6:33 PM EDT Kaitlin Dominguez LPN No [facility] 10-28-2014 Because of a physica l, mental, or emotional condition, do you have difficulty doing errands alone such as visiting a physician's office or shopping No 10/28/2014 6:33 PM EDT Kaitlin Dominguez LPN No [facility] Mental Status Date Assessment Result Facility 10-28-2014 Because of a physica l, mental, or emotional condition, do you have serious difficulty concentrating, remembering, or making decisions No 10/28/2014 6:33 PM EDT Kaitlin Dominguez LPN No [facility] Clinical Notes 10-25-2023 to 11-19-2024 Patient InstructionsNorma Lerma APRN.[facility] - 11/19/2024 7:58 AM EDTTelephone Encounter - Tierra Grimaldo RN - 08/13/2024 8:35 AM Norma Nielsen APRN.[facility] - 06/20/2024 8:56 AM EST Note Date & Type Note Facility 11-19-2024 Instructions Norma Lerma APRN.BUSINESS TECHNOLOGY TEACHER - 11/19/2024 8:20 AM EDT Calcium and Vitamin D Supplementation For more information:My [facility] Osteopenia Calcium Age Recommended Daily Allowance Age [...] physical activity (or a combination of both). [place] [employer]ne[employer] (ACOG) and several other major osteoporosis guideline groups recommend screening for osteoporosis with Dual-energy X-ray Absorptiometry (DXA) in all postmenopausal documented in this encounter [facility] 11-19-2024 Note HNO ID: [id number] Author: NORMA LERMA APRN.ZEE Service: ? Author Type: Nurse Practitioner Type: Progress Notes Filed: 11/19/2024 08:21 Note Text: Machine Heel Seat Laster offered: Patient declines. Arelis is a 59 [...] OB History No obstetric history on file. 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 As applicable, any other physician, advance practice provider, medical student, or other health professional student that will be observing or involved in the sensitive examination for educational or training purposes was discussed with the Patient or Authorized Stock Control Clerk. The Patient or Authorized Stock Control Clerk has agreed to proceed with the sensitive [...] external genitalia normal, normal Bartholin's glands, urethra, Ivor's glands, no vulvar lesions, no cervical lesions, [...] MG/24 HR WEEKLY TRANSDERMAL PATCH Norma Lerma APRN.BUSINESS TECHNOLOGY TEACHER [facility] 11-19-2024 History of Presen t illness Narrative Machine Heel Seat Laster offered: Patient declines. Arelis is a 59 [...] OB History No obstetric history on file. 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 As applicable, any other physician, advance practice provider, medical student, or other health professional student that will be observing or involved in the sensitive examination for educational or training purposes was discussed with the Patient or Authorized Stock Control Clerk. The Patient or Authorized Stock Control Clerk has agreed to proceed with the sensitive [...] external genitalia normal, normal Bartholin's glands, urethra, Ivor's glands, no vulvar lesions, no cervical lesions, [...] MG/24 HR WEEKLY TRANSDERMAL PATCH Norma Lerma APRN.BUSINESS TECHNOLOGY TEACHER documented in this encounter [facility] 08-13-2024 Telephone encounter Note Patient notified. Tierra Grimaldo RN [facility] 08-13-2024 Miscellaneous Notes Patient notified. Tierra Grimaldo [...] Tierra Grimaldo RN documented in this encounter [facility] 08-13-2024 Telephone encounter Note Not a common side effect with HRT. However, HRT can cause increased risk of blood clots so needs to be evaluated by PCP or go to ER. Norma Lerma APRN.CNP [facility] 08-12-2024 Telephone encounter Note Patient asking if [...] returns to the office. Tierra Grimaldo, RN [facility] 08-04-2024 Telephone encounter Note Patient notified and voiced understanding. Patient states she will call and schedule and appointment if she feels is needed. 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 Patient asking if there is another patch available? Or recommendations for people sensitive to the adhesive? Respond to patient by jaquan message documented in this encounter [facility] 08-04-2024 Telephone encounter Note I recommend rotating application site if she isn't already. Unfortunately, this is a common side effect of patch. I recommend appointment to discuss. Norma Lerma APRN.CNP [facility] 08-04-2024 Telephone encounter Note Patient called stating that she was prescribed the estradiol patch 05/2024 and is having itching in area where adhesive is. Patient tried removing the adhesive and using tape but this is not practical for care home use. Patient asking if there is another patch available? Or recommendations for people sensitive to the adhesive? Respond to patient by [employer] message [facility] 06-20-2024 Note HNO ID: [id number] Author: NORMA LERMA APRN.ZEE Service: ? Author Type: Nurse Practitioner Type: Progress Notes Filed: 06/20/2024 09:10 Note Text: OGI VIRTUAL VISIT Virtual limitations reviewed with patient, as well as possible need to travel to have diagnostic services. Patient voiced understanding. Patient seen on [employer] Video Visit platform. Location of patient: [place] I have communicated my name and active licensure. The patient's identity and physical location were verified at the time of this visit. Either the patient or their legal telesales representative has been informed of the risks [...] which included preparing to see the patient, jjjp-qu-fatw patient care, completing clinical documentation, obtaining and/or reviewing separately obtained history, and communicating results to the patient/family/caregiver. [facility] 06-20-2024 History of Presen t illness Narrative OGI VIRTUAL VISIT Virtual limitations reviewed with patient, as well as possible need to travel to have diagnostic services. Patient voiced understanding. Patient seen on [employer] Video Visit platform. Location of patient: [place] I have communicated my name and active licensure. The patient's identity and physical location were verified at the time of this visit. Either the patient or their legal telesales representative has been informed of the risks [...] which included preparing to see the patient, udpo-oe-mesu patient care, completing clinical documentation, obtaining and/or reviewing separately obtained history, and communicating results to the patient/family/caregiver. documented in this encounter [facility] 05-23-2024 Telephone encounter Note Patient notified. F/u appointment scheduled. Speedy Soares RN [facility] 05-23-2024 Miscellaneous Notes Patient notified. F/u appointment scheduled. Speedy Soares RN Left message to call office Please notify patient: Elevated fasting glucose and elevated cholesterol. First line therapy is improving diet and exercise. Follow up with me in 4 weeks to assess HRT or sooner as needed. Norma Lerma APRN.CNP documented in this encounter [facility] 05-23-2024 Telephone encounter Note Left message to call office [facility] 05-23-2024 Telephone encounter Note Please notify patient: Elevated fasting glucose and elevated cholesterol. First line therapy is improving diet and exercise. Follow up with me in 4 weeks to assess HRT or sooner as needed. Norma Lerma APRN.CNP [facility] 05-21-2024 Instructions Norma Lerma APRN.CNP - 05/21/2024 9:21 AM EST This is from the [facility] website: Placing the patch on your skin [...] in the toilet documented in this encounter [facility] 05-21-2024 Note HNO ID: [id number] Author: NORMA LERMA APRN.CNP Service: ? Author [...] OB History No obstetric history on file. 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 Prisca Marin RN [facility] 05-12-2024 Miscellaneous Notes Patient notified and voiced [...] Prisca Marin RN documented in this encounter [facility] 05-12-2024 Telephone encounter Note Left message for patient to call office. Carolina Menendez RN [facility] 05-12-2024 Telephone encounter Note Needs appointment to discuss this Norma Lerma APRN.CNP [facility] 05-12-2024 Telephone encounter Note Patient calling asking [...] with success. Please address. Prisca Marin RN [facility] 10-25-2023 Instructions Norma Lerma APRN.[facility] - 10/25/2023 7:49 AM EDT Images from the original note were not included. 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 Consider having an [facility] blood test for further [...] of symptoms of vaginal atrophy and the methodist of the vagina's epithelial lining and pH -- hormone free. In dusw-ix-egqd clinical trials, Revaree performed as well as [...] some patients. Lubricants and moisturizers list The eqlg-yfm-vievvui vaginal moisturizer and lubricant products can be [...] in any drugstore or online. Also, many [employer] stores do carry high-quality lubricant products. VAGINAL [...] lube Replens Silky Smooth Pulse Aloe-ahh Wet [place] RADHA Premium Personal Lubricant PINK Silicone Lubricant [...] vaginal moisturizer makes them feel more comfortable. 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 [place] Aloe [place]: Many people are allergic to aloe, so keep this in mind with products like this that have aloe in it. Medicine Mama s V magic: Not much medical studies on this, but many patients swear by it, has oil, beeswax and honey in it- best used externally only. documented in this encounter [facility] 10-25-2023 History of Presen t illness Narrative Arelis is a 58 year old No obstetric history on file. who presents for an annual gynecologic exam with complaints, menopausal symptoms, with the most bothersome symptoms being hot flashes and night sweats. Has been caring for parents/in laws. She works at [employer]. Postmenopausal: Yes since age 55 HRT use: [...] OB History No obstetric history on file. 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 Comments: Sexual Activity: Not Asked; No [...] external genitalia normal, normal Bartholin's glands, urethra, Ivor's glands, no vulvar lesions, no cervical lesions, [...] Norma Lerma APRN.ZEE documented in this encounter [facility] Evaluation note No assessment inform ation available [...] sweats Generalized hyperhidrosis [facility] Diagnosis Menopausal symptoms- Primary Symptomatic menopausal or female climacteric states [facility] Diagnosis Hormone replacement therapy (postmenopausal)- Primary Need for prophylactic hormone replacement therapy (postmenopausal) Menopausal symptoms Symptomatic menopausal or female climacteric states Hyperlipidemia, unspecified hyperlipidemia type [facility] Diagnosis Encounter for gynecological examination (general) (routine) without abnormal findings- Primary Encounter for screening mammogram for breast cancer Hot flashes Symptomatic menopausal or female climacteric states [facility]ative)* Diagnostic Procedure Only (Routine) - Pending Review Specialty Diagnoses / Procedures Referred By Jakob harris Referred To Contact [facility] Diagnoses Encounter for screening mammogram for breast cancer Procedures SEAN SCREENING SCREENING MAMMOGRAPHY BI 2-VIEW BREAST INC Norma Chirinos APRN.CNP [address] 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 February 21, 2017 11:05am Summary Purpose [...] or prosecute any alcohol or drug abuse patient.[facility] the event this information is protected by the Federal Confidentiality of Alcohol and Drug Abuse Patient Records regulations: The Federal rules restrict any use of the information to criminally investigate or prosecute any alcohol or drug abuse patient.[facility] the event this information is protected by the Federal Confidentiality of Alcohol and Drug Abuse Patient Records regulations: The Federal rules restrict any use of the information to criminally investigate or prosecute any alcohol or drug abuse patient.[facility] the event this information is protected by the Federal Confidentiality of Alcohol and Drug Abuse Patient Records regulations: The Federal rules restrict any use of the information to criminally investigate or prosecute any alcohol or drug abuse patient.[facility] the event this information is protected by the Federal Confidentiality of Alcohol and Drug Abuse Patient Records regulations: The Federal rules restrict any use of the information to criminally investigate or prosecute any alcohol or drug abuse patient.[facility] the event this information is protected by the Federal Confidentiality of Alcohol and Drug Abuse Patient Records regulations: The Federal rules restrict any use of the information to criminally investigate or prosecute any alcohol or drug abuse patient.[facility] the event this information is protected by the Federal Confidentiality of Alcohol and Drug Abuse Patient Records regulations: The Federal rules restrict any use of the information to criminally investigate or prosecute any alcohol or drug abuse patient.[facility] the event this information is protected by the Federal Confidentiality of Alcohol and Drug Abuse Patient Records regulations: The Federal rules restrict any use of the information to criminally investigate or prosecute any alcohol or drug abuse patient.[facility] Reason for Visit (unrecogniz ed section and content) Reason Comments Well Woman Reason Comments hot flashes Reason Comments Discussion HRT Reason Comments Results Reason Comments Symptomatic Menopause Reason Comments Patient Update Reason Comments Patient Question Care Teams (unrecognized sec tion and content) 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 [facility] [employer] [facility]. provides no warranty or guarantee of the accuracy or completeness of information in this document.
== END | disposition home or self-care (01) ==
LOC: OPMRI 10:16
PROVIDERS: PCP Family Medicine
DX: C34.92 Malignant neoplasm of unspecified part of left bronchus or lung (principal)
CPT/HCPCS: 70553

== ENCOUNTER → 2025-05-12 | Outpatient (CLI) | payer OTHER, SELFPAY ==
--- NOTE | 2025-05-12 13:24 | US_ITS ---
PROCEDURE: THORACENTESIS W US 05/12/2025 REASON FOR EXAM: LUNG MASS. Large left pleural effusion. TECHNIQUE: Left THORACENTESIS W US COMPARISON: Chest x-ray of 05/04/2025. FINDINGS: Procedure: Following informed consent, an using standard sterile technique, a left thoracentesis was performed with ultrasound guidance. 2% lidocaine local anesthesia was followed by placement of a 5 Romanian Yueh catheter into the left pleural fluid collection. A total of approximately 1490 mL of clear yellow fluid was successfully removed. No complication was encountered, and the patient left the department in good condition without significant complaint. US/Thoracentesis W US IMPRESSION: Successful ultrasound-guided left thoracentesis. Reading Location: [place] [address]
[2025-05-12] MEDS: Lidocaine 2% (20 ml mdv) 20 ML Vial (13:40)
[2025-05-12 14:07] VITALS: BP 146/104; PULSE 123; RESP 18; O2SAT 98
[2025-05-12 14:08] VITALS: BP 128/93; PULSE 117; RESP 18; O2SAT 93
== END | disposition home or self-care (01) ==
LOC: US 13:22
PROVIDERS: PCP Family Medicine; Referring Provider Family Medicine; Visit Provider Family Medicine
DX: R91.8 Other nonspecific abnormal finding of lung field (principal); J90 Pleural effusion, not elsewhere classified
CPT/HCPCS: 32555